=== PATIENT | female | born 1950 | race Caucasian/White ===

== ENCOUNTER 2019-07-16 00:40 | Day surgery (SDC) | payer MEDICARE, SELFPAY ==
[2019-07-14 14:02] VITALS: BMI 24.1
[2019-07-16 06:50] VITALS: BP 137/83; PULSE 77; RESP 16; TEMP 36.3; O2SAT 98; BMI 25.2
--- NOTE | 2019-07-16 06:58 | WPDANESEPPF ---
Anes - Initial Pre Proc Eval Procedure: Operation Date: 07/16/19 08:00 Proposed Procedures p Screening Colonoscopy - Bret Leavitt MD Date/Time: 07/16/19 06:58 Surgeon: Bret Leavitt MD Pre Op Diagnosis: Neoplasm Screening Patient Data Age: 69 Gender: F Height: 5 ft 2 in Weight: 62.7 kg Last Vital Signs Temp 36.3 C L 07/16/19 06:50 Pulse 77 07/16/19 06:50 Resp 16 07/16/19 06:50 BP 137/83 07/16/19 06:50 Pulse Ox 98 07/16/19 06:50 Allergies Allergy/AdvReac Type Severity Reaction Status Date / Time No Known Allergies Allergy Verified 07/16/19 06:48 Home Medications Medication Instructions Recorded Confirmed Type atorvastatin 10 mg tablet 10 mg PO DAILY #90 tablet 06/25/19 07/14/19 Rx celecoxib 200 mg PO DAILY PRN 07/14/19 07/14/19 History ergocalciferol (vitamin D2) 2,000 mcg PO DAILY 07/14/19 07/14/19 History [Vitamin D2] levothyroxine 25 mcg PO QAM 07/14/19 07/14/19 History multivitamin [Multiple Vitamins] 1 tablet PO DAILY 07/14/19 07/14/19 History turmeric 400 mg PO DAILY 07/14/19 07/14/19 History vitamin B complex 1 tablet PO DAILY 07/14/19 07/14/19 History Patient hx anesthesia problems: none Family hx anesthesia problems: none PMFSH Past Medical History Medical History (Updated 07/16/19 @ 06:58 by Cyrus Huston MD) Hyperlipidemia Hypothyroidism Family History Family History Sibling Hypertension Social History Social History Smoking status: Former smoker Smoking end date: 05/20/83 Anes - Eval Final PreProcedure Day of Procedure 07/16/19 06:58 Patient weight: normal Heart: regular rate and rhythm Lungs: clear to auscultation Airway: Mallampati scale class II Neurological: alert and oriented Last oral intake: >/= 8 hours ASA classification: II Emergent: no Anesthetic plan: proceed Anesthesia type and monitoring: general and standard monitoring Informed Consent: The patient's anesthetic plan and its attendant risks and benefits were discussed with the patient/family/POA. Questions were solicited and answers provided to the satisfaction of the patient/family/POA.
--- NOTE | 2019-07-16 07:05 | PM.HPGS ---
History of Present Illness History of Present Illness Consent: Risks, benefits, and alternatives have been discussed and questions answered. Patient agrees to proceed with procedure. Chief complaint: Neoplasm Screening Narrative: Dejah Augustine is a 69 year old W female referred for screening colonoscopy. patient's last colonoscopy was 10 years ago. Patient is asymptomatic and there is no family history of colon cancer PMFSH Past Medical History Medical History (Updated 07/16/19 @ 07:08 by Bret Leavitt MD) Bilateral cataracts Hyperlipidemia Hypothyroidism Presence of tooth-root and mandibular implants Surgical History Surgical History (Updated 07/16/19 @ 07:08 by Bret Leavitt MD) History of bladder suspension procedure Status post carpal tunnel release Family History Family History Sibling Hypertension Social History Social History Smoking status: Former smoker Smoking end date: 05/20/83 Meds Home Medications and Allergies Home Medications Medication Instructions Recorded Confirmed Type atorvastatin 10 mg tablet 10 mg PO DAILY #90 tablet 06/25/19 07/14/19 Rx celecoxib 200 mg PO DAILY PRN 07/14/19 07/14/19 History ergocalciferol (vitamin D2) 2,000 mcg PO DAILY 07/14/19 07/14/19 History [Vitamin D2] levothyroxine 25 mcg PO QAM 07/14/19 07/14/19 History multivitamin [Multiple Vitamins] 1 tablet PO DAILY 07/14/19 07/14/19 History turmeric 400 mg PO DAILY 07/14/19 07/14/19 History vitamin B complex 1 tablet PO DAILY 07/14/19 07/14/19 History Allergies Allergy/AdvReac Type Severity Reaction Status Date / Time No Known Allergies Allergy Verified 07/16/19 06:48 Vital Signs Vital Signs - 24 hr 07/16/19 06:50 Temperature 36.3 C L Pulse Rate 77 Respiratory Rate 16 Blood Pressure 137/83 Pulse Oximetry 98 Exam Const: Orientation/consciousness: patient oriented x3 Resp: Auscultation: clear to auscultation bilaterally Cardio: Rate: regular rate Rhythm: regular rhythm Heart sounds: no murmurs GI: GI Palp: Yes Soft to palpation, No Tenderness to palpation present (GI), Yes No hepatosplenomegaly present and No Palpable mass present Auscultation: normal bowel sounds Neuro: General: patient oriented x3 and no focal motor deficits Extrem: General: no pedal edema Assessment and Plan Additional Plan screening colonoscopy in average risk pt.
[2019-07-16] MEDS: LACTATED RINGERS 1,000 ML 150 ML IV CONT (07:16)
[2019-07-16 08:53] VITALS: BP 105/65; PULSE 71; RESP 19; O2SAT 97
[2019-07-16 09:03] VITALS: BP 108/65; PULSE 65; RESP 19; O2SAT 97
[2019-07-16 09:13] VITALS: BP 127/81; PULSE 61; RESP 16; O2SAT 97
== END 2019-07-16 09:30 | disposition home or self-care (01) ==
PROVIDERS: PCP Internal Medicine; Visit Provider Internal Medicine Gastroenterology
PROC: 0DJD8ZZ Inspection of Lower Intestinal Tract, Via Natural or Artificial Opening Endoscopic (ICD-10-PCS; CPT 45378; principal; 2019-07-16 08:00)
DX: Z12.11 Encounter for screening for malignant neoplasm of colon (principal); K57.30 Diverticulosis of large intestine without perforation or abscess without bleeding; K64.8 Other hemorrhoids; E78.5 Hyperlipidemia, unspecified; E03.9 Hypothyroidism, unspecified; Z87.891 Personal history of nicotine dependence
CPT/HCPCS: G0121; J2001; J2704; J7120

== ENCOUNTER 2019-10-14 13:03 | Outpatient (CLI) | payer MEDICARE, SELFPAY ==
--- NOTE | ~2019-10-14 | XR_ITS ---
EXAMINATION: XR chest 2V 10/14/2019 13:29 INDICATION: Cough PROCEDURE: 2 view chest COMPARISON: 04/28/2015 FINDINGS: The lungs are clear. The cardiomediastinal silhouette is within normal limits. There are no pleural effusions. There is no pneumothorax suspected. IMPRESSION: 1: NO ACUTE CARDIOPULMONARY DISEASE. Reviewed, dictated and finalized at location A.
== END 2019-10-14 13:04 | disposition home or self-care (01) ==
PROVIDERS: PCP Internal Medicine; Visit Provider Clinical Nurse Specialist
DX: R05 Cough (principal)
CPT/HCPCS: 71046

== ENCOUNTER → 2020-01-07 13:00 | Outpatient (CLI) | payer MEDICARE, SELFPAY ==
--- NOTE | ~2020-01-07 | MM_ITS ---
EXAMINATION: MM screening ricky BI w won HISTORY: Screening mammogram TECHNIQUE: Craniocaudal and mediolateral oblique 3-D tomosynthesis images were obtained and synthetic 2-D images were generated. CAD analysis was submitted and interpreted. COMPARISON: 08/30/2017, 08/06/2016 bilateral digital screening mammogram examinations BREAST PARENCHYMAL COMPOSITION: There are scattered areas of fibroglandular density. FINDINGS: Scattered bilateral benign calcifications. There is no evidence of suspicious mass, calcifi cation, or architectural distortion to suggest malignancy in either breast. There has been no suspici ous interval change. IMPRESSION: 1. No mammographic evidence of malignancy. 2. Recommend routine screening mammography in one year. BI-RADS Category 2: Benign finding(s). Reviewed, dictated and finalized at location A.
== END ==
PROVIDERS: PCP Internal Medicine; Visit Provider Internal Medicine
DX: Z12.31 Encounter for screening mammogram for malignant neoplasm of breast (principal)
CPT/HCPCS: 77063; 77067

== ENCOUNTER → 2020-04-07 10:20 | Outpatient (CLI) | payer MEDICARE, SELFPAY ==
--- NOTE | ~2020-04-07 | US_ITS ---
EXAMINATION: US soft tissue lower back DATE: 04/07/2020 10:38 INDICATION: Left upper back mass. TECHNIQUE: Multiple grayscale and Doppler ultrasound images of the right lower back were obtained. COMPARISON: None FINDINGS: There is a 1.3 x 1.0 x 0.6 cm hyperechoic subcutaneous mass in the patient's area of concer n in the right lower back. IMPRESSION: 1. 1.3 cm hyperechoic subcutaneous mass in the patient's area of concern in the right lower back. The differential diagnosis is headed by benign masses such as lipoma, hemangioma, and peripheral nerve s joe tumor. Malignancy cannot be excluded. Reviewed, dictated and finalized at location A. [employer] IMPRESSION: 1. 1.3 cm hyperechoic subcutaneous mass in the patient's area of concern in the right lower back. The differential diagnosis is headed by benign masses such a s lipoma, hemangioma, and peripheral nerve sheath tumor. Malignancy cannot be e xcluded.
--- NOTE | ~2020-04-07 | US_ITS ---
EXAMINATION: US soft tissue upper back DATE: 04/07/2020 10:38 INDICATION: Left upper back mass. TECHNIQUE: Multiple grayscale and Doppler ultrasound images of the left upper back were obtained. COMPARISON: None FINDINGS: There is a 1.7 x 0.4 x 1.7 cm subcutaneous mass that is isoechoic to subcutaneous fat in th e patient's area of concern in the left upper back. IMPRESSION: 1. 1.7 cm subcutaneous mass in the left upper back in the patient's area of concern, most likely a li octavio. Reviewed, dictated and finalized at location A. [employer]ELOPER IMPRESSION: 1. 1.7 cm subcutaneous mass in the left upper back in the patient's area of con cern, most likely a lipoma.
== END ==
PROVIDERS: PCP Internal Medicine; Visit Provider Nurse Practitioner
DX: R22.9 Localized swelling, mass and lump, unspecified (principal)
CPT/HCPCS: 76604; 76705

== ENCOUNTER → 2020-07-04 01:27 | Outpatient (CLI) | payer MEDICARE, SELFPAY ==
[2020-07-04 19:35] LABS: SARS-CoV-2 RNA PCR Negative
== END ==
PROVIDERS: PCP Internal Medicine; Visit Provider Surgery
DX: Z01.812 Encounter for preprocedural laboratory examination (principal); Z20.822 Contact with and (suspected) exposure to COVID-19
CPT/HCPCS: C9803; U0003; U0005

== ENCOUNTER 2020-07-07 00:58 | Day surgery (SDC) | payer MEDICARE, SELFPAY ==
[2020-07-04 10:49] VITALS: BMI 22.7
--- NOTE | 2020-07-07 10:00 | ECG_ITS ---
Measurements Intervals [place] Rate: 64 P: 71 OR: 145 QRS: 31 QRSD: 88 T: 74 QT: 384 QTc: 399 Interpretive Statements SINUS RHYTHM BASELINE ARTIFACT- I, III, AVL, AVF, V2-V3, V6 NORMAL ECG Electronically Signed On 07-07-2020 11:33:46 MET[employer] BUFFER by Checo Marquez D.O.
[2020-07-07 11:12] VITALS: BP 123/70; PULSE 69; RESP 18; TEMP 36; O2SAT 99
[2020-07-07] MEDS: LACTATED RINGERS 1,000 ML 30 ML IV CONT (11:30)
--- NOTE | 2020-07-07 11:43 | P.PNAN_ITS ---
Anes - Initial Pre Proc Eval Procedure: Operation Date: 07/07/20 13:00 Proposed Procedures p Excision Left Shoulder Mass - Leticia Mora MD Date/Time: 07/07/20 11:43 Surgeon: Leticia Mora MD Pre Op Diagnosis: Left Shoulder Mass Patient Data Age: 70 Gender: F Height: 5 ft 1 in Weight: 59 kg Last Vital Signs Temp 96.8 F L 07/07/20 11:12 Pulse 69 07/07/20 11:12 Resp 18 07/07/20 11:12 BP 123/70 07/07/20 11:12 Pulse Ox 99 07/07/20 11:12 Allergies Allergy/AdvReac Type Severity Reaction Status Date / Time No Known Allergies Allergy Verified 07/07/20 11:34 Home Medications Medication Instructions Recorded Confirmed Type celecoxib 200 mg PO DAILY PRN 07/14/19 07/07/20 History multivitamin [Multiple Vitamins] 1 tablet PO DAILY 07/14/19 07/07/20 History turmeric 400 mg PO DAILY 07/14/19 07/07/20 History vitamin B complex 1 tablet PO DAILY 07/14/19 07/07/20 History Vitamin D3 4,000 unit PO DAILY 07/16/19 07/07/20 History loratadine 10 mg tablet 10 mg PO DAILY PRN 09/15/19 07/07/20 History vitamin E 200 unit capsule 200 unit PO DAILY 09/15/19 07/07/20 History cyclosporine 0.05 % eye drops in a 1 drp OPHTHALMIC (EYE) Q12H 03/31/20 07/07/20 History dropperette atorvastatin 10 mg tablet 10 mg PO DAILY #90 tablet 06/16/20 07/07/20 Rx levothyroxine 25 mcg tablet 25 mcg PO QAM #90 tablet 06/16/20 07/07/20 Rx Patient hx anesthesia problems: none Family hx anesthesia problems: none PMFSH Past Medical History Medical History (Updated 04/19/20 @ 14:42 by Marie Stephens) Bilateral cataracts Hyperlipidemia Hypertension Hypothyroidism Lipoma Osteoarthritis Presence of tooth-root and mandibular implants Vitamin D deficiency Surgical History Surgical History History of bladder suspension procedure Status post carpal tunnel release Family History Family History Sibling Hypertension Diabetes mellitus Father Bone cancer Mother Liver cancer Social History Social History (Updated 04/19/20 @ 14:11 by Nina Mooney CMA) Smoking packs per day: 2 Smoking cigarettes per day: 40.0 Years smoked: 17 Smoking pack-years: 34.00 Smoking status: Never smoker Tobacco type: cigarettes Smoking end date: 05/20/83 Additional smoking assessment comments: QUIT 1983 Alcohol intake: never Substance use: never Substance use type: does not use Living arrangements: with family Spiritual care concerns: No Anes - Eval Final PreProcedure Day of Procedure 07/07/20 11:43 Patient weight: normal Heart: regular rate and rhythm Lungs: clear to auscultation Airway: Mallampati scale class II Neurological: alert and oriented Last oral intake: >/= 8 hours ASA classification: III Emergent: no Anesthetic plan: proceed Anesthesia type and monitoring: general GIVS and standard monitoring Informed Consent: The patient's anesthetic plan and its attendant risks and benefits were discussed with the patient/family/POA. Questions were solicited and answers provided to the satisfaction of the patient/family/POA.
--- NOTE | 2020-07-07 12:02 | PM.IMHP ---
H&P: HPI History of Present Illness Date/Time: 07/07/20 12:02 Chief Complaint: mass x 2 Narrative: Dejah Augustine is a 70 year old female presenting for evaluation of L upper back mass and R lat chest wall mass. A few months ago she noticed a mass of the mid upper back. She denies pain but has noticed a slight increase in size since she first noticed it. She denies surrounding redness, drainage or other s/s of infection. She was by her PCP on 04/07/2020 for an ultrasound of the area which showed 1.7 cm subcutaneous mass in the left upper back in the patient's area of concern, most likely a lipoma. The R lat chest wall mass is larger in size and has also been found in the same time interval. Pt reports mild tenderness to pressure/palpation in both areas. Review of Systems Review of Systems: All systems reviewed & are unremarkable except as noted in HPI and below PMFSH Past Medical History Medical History Bilateral cataracts Hyperlipidemia Hypertension Hypothyroidism Lipoma Osteoarthritis Presence of tooth-root and mandibular implants Vitamin D deficiency Surgical History Surgical History History of bladder suspension procedure Status post carpal tunnel release Family History Family History Sibling Hypertension Diabetes mellitus Father Bone cancer Mother Liver cancer Social History Social History Smoking packs per day: 2 Smoking cigarettes per day: 40.0 Years smoked: 17 Smoking pack-years: 34.00 Smoking status: Never smoker Tobacco type: cigarettes Smoking end date: 05/20/83 Additional smoking assessment comments: QUIT 1984 Alcohol intake: never Substance use: never Substance use type: does not use Living arrangements: with family Spiritual care concerns: No Meds Home Medications and Allergies Home Medications Medication Instructions Recorded Confirmed Type celecoxib 200 mg PO DAILY PRN 07/14/19 07/07/20 History multivitamin [Multiple Vitamins] 1 tablet PO DAILY 07/14/19 07/07/20 History turmeric 400 mg PO DAILY 07/14/19 07/07/20 History vitamin B complex 1 tablet PO DAILY 07/14/19 07/07/20 History Vitamin D3 4,000 unit PO DAILY 07/16/19 07/07/20 History loratadine 10 mg tablet 10 mg PO DAILY PRN 09/15/19 07/07/20 History vitamin E 200 unit capsule 200 unit PO DAILY 09/15/19 07/07/20 History cyclosporine 0.05 % eye drops in a 1 drp OPHTHALMIC (EYE) Q12H 03/31/20 07/07/20 History dropperette atorvastatin 10 mg tablet 10 mg PO DAILY #90 tablet 06/16/20 07/07/20 Rx levothyroxine 25 mcg tablet 25 mcg PO QAM #90 tablet 06/16/20 07/07/20 Rx Allergies Allergy/AdvReac Type Severity Reaction Status Date / Time No Known Allergies Allergy Verified 07/07/20 11:34 Vital Signs Vital Signs - 24 hr 07/07/20 11:12 Temperature 36.0 C L Pulse Rate 69 Respiratory Rate 18 Blood Pressure 123/70 Pulse Oximetry 99 Exam Const: General: cooperative, comfortable and no acute distress Orientation/consciousness: patient oriented x3 Limitations: no limitations Chest: Chest palpation & inspection: normal inspection of the chest Other: R lat chest wall mass - well circumscribed measuring approx 10x8 cm, mild TTP, no s/s infection, c/w lipoma Resp: Effort & Inspection: normal respiratory effort Auscultation: clear to auscultation bilaterally Cardio: Jugular venous distension: no JVD Rate: regular rate Rhythm: regular rhythm GI: Inspection: normal to inspection and non-distended GI Palp: Yes Soft to palpation and No Tenderness to palpation present (GI) Back/Spine/Pelvis: Other: L upper mid back mass measuring approx 2 cm, mild TTP, no s/s infection Assessment and Plan Assessment and plan (1) Mass: Status: Acute Assessment and Plan: L upper
--- NOTE | 2020-07-07 12:07 | WPDHPUPDATE1 ---
History and Physical Update Update Date/Time: 07/07/20 12:07 History and Physical has been reviewed, including an updated exam of the patient. There are NO changes in the patient's condition. Risks, benefits, and alternatives have been discussed and questions answered. Patient agrees to proceed with procedure.
[2020-07-07] MEDS: ceFAZolin 2 GM/D5W 50 ML 2 GM/50 ML BAG IVPB (12:34)
[2020-07-07 13:05] VITALS: BP 103/59; PULSE 54; RESP 18; O2SAT 94
--- NOTE | 2020-07-07 13:25 | PM.PROC ---
Procedure Note - Detailed Date of procedure: 07/07/20 Pre-op diagnosis: Left Shoulder Mass Left posterior shoulder mass measuring 2x1 cm, Right lateral chest wall mass measuring 12x7 cm Post-op diagnosis: same Procedure performed: Excisional biopsy left posterior shoulder mass in right lateral chest wall Description of procedure: The patient was taken the operating room placed in the lateral position. After adequate induction of mac anesthesia the patient was prepped and draped in the normal sterile fashion. A time-out was then done to verify the patient's identity, as well as procedure being performed. I began by localizing both these areas. Once done, I began by making an incision over the mass in the left posterior shoulder. This was noted to be through the dermis and located in the subcutaneous tissue. Although the posterior aspect of the mass was on the muscle did not extend into the muscle. I was able to excise this mass in full. The mass was most consistent with lipoma and measured approximately 2 x 1 cm. I then closed the subcutaneous tissue with 3 Vicryl suture and the skin was closed with 4 O Monocryl subcuticular suture. Dermabond was placed on this wound. I then made an incision over the mass in the right lateral chest. Again this was carried down through the dermis into the subcutaneous tissue. A large subcutaneous mass was noted. I was able to excise the mass in full and again was located entirely in the subcutaneous tissue. Once excised, the mass measured approximately 12 x 7 cm. I then gained hemostasis with the Bovie cautery. The subcutaneous tissue was again closed with 3 0 Vicryl suture. Skin was closed with 4 O Monocryl subcuticular suture. Dermabond was again placed on this wound. The patient tolerated these procedures well and was alert and awake in the operating room postoperatively. She was sent to the recovery room in stable condition. Anesthesia: MAC and local Surgeon: Leticia Mora MD Estimated blood loss (mL): 10 Drains: No Packing: No Pathology: yes Complications: No immediate complications Condition: stable Disposition: PACU Findings: Left posterior shoulder mass measuring 2 x 1 cm, right lateral chest wall mass measuring 12 x 7 cm
[2020-07-07 13:35] VITALS: BP 108/64; PULSE 47; O2SAT 97
[2020-07-07 14:05] VITALS: BP 138/69; PULSE 46
[2020-07-07 14:35] VITALS: BP 125/65; PULSE 49
== END 2020-07-07 15:03 | disposition home or self-care (01) ==
PROVIDERS: PCP Internal Medicine; Visit Provider Surgery
PROC: (CPT 21552; principal; 2020-07-07 13:00)
DX: D17.22 Benign lipomatous neoplasm of skin and subcutaneous tissue of left arm (principal); D17.1 Benign lipomatous neoplasm of skin and subcutaneous tissue of trunk; I10 Essential (primary) hypertension; E78.5 Hyperlipidemia, unspecified; E03.9 Hypothyroidism, unspecified; E55.9 Vitamin D deficiency, unspecified; H26.9 Unspecified cataract; Z87.891 Personal history of nicotine dependence
CPT/HCPCS: 21552; 24071; 88304; 93005; C9803; J0690; J1100; J2405; J2704; J3010; J7120; U0003; U0005

== ENCOUNTER 2020-10-27 10:22 | Outpatient (CLI) | payer MEDICARE, SELFPAY ==
[2020-10-27 10:42] LABS: Basophils Percent Auto 0.6 % (0.2-1.2); Eosinophils Absolute Auto 0.1 K/mm3 (0-0.3); Eosinophils Percent Auto 1.4 % (0-4.4); Hematocrit 45.5 % (37.0-47.0); Hemoglobin 14.6 g/dL (12.0-15.0); Immature Granulocyte Absolute 0.01 K/mm3 (0.00-0.031); Immature Granulocyte Percent A 0.2 % (0-0.5); Lymphocytes Absolute Auto 2.17 K/mm3 (0.9-3.2); Lymphocytes Percent Auto 32.8 % (18.3-44.2); Mean Corpuscular HGB Conc 32.1 g/dl (32-36); Mean Corpuscular Hemoglobin 27.5 pg (26-34); Mean Corpuscular Volume 85.7 fl (80-100); Monocytes Absolute Auto 0.7 K/mm3 (0.1-0.6); Monocytes Percent Auto 9.8 % (2.6-8.5); Neutrophils Absolute Auto 3.7 K/mm3 (1.3-6.7); Neutrophils Percent Auto 55.2 % (45.5-73.1); Platelet Count Result 263 k/mm3 (150-375); Red Blood Count 5.31 M/mm3 (4.2-5.4); Red Cell Distribution Width 13.3 % (11.5-14.5); White Blood Count 6.6 K/mm3 (4.5-10.0)
[2020-10-27 10:55] LABS: Alanine Aminotransferase 19 U/L (4-35); Albumin Level 4.4 g/dL (3.5-5.1); Alkaline Phosphatase 73 U/L (38-126); Anion Gap 11 mmol/L (8-16); Aspartate Amino Transferase 28 U/L (14-36); Bilirubin,Total 0.4 mg/dL (0.2-1.3); Blood Urea Nitrogen 13 mg/dL (7-17); Calcium 9.7 mg/dL (8.4-10.2); Carbon Dioxide 24 mmol/L (22-30); Chloride 108 mmol/L (98-107); Cholesterol 203 mg/dL (0-200); Estimated Glomerular Filt Rate > 60; Glucose 98 mg/dL (65-105); HDL Direct 62 mg/dL; Sodium 143 mmol/L (137-145); Triglycerides 150 mg/dL (<150)
[2020-10-27 11:07] LABS: LDL Cholesterol Direct 96 mg/dL
[2020-10-27 11:21] LABS: Free T4 Free Thyroxine 1.05 ng/mL (0.78-2.19)
[2020-10-30 05:09] LABS: Triiodothyronine T3 Free 3.1 pg/mL (2.3-4.2)
== END 2020-10-27 10:23 | disposition home or self-care (01) ==
PROVIDERS: PCP Internal Medicine; Visit Provider Nurse Practitioner
DX: E78.5 Hyperlipidemia, unspecified (principal); I10 Essential (primary) hypertension; E03.9 Hypothyroidism, unspecified; Z13.220 Encounter for screening for lipoid disorders
CPT/HCPCS: 36415; 80053; 80061; 84439; 84443; 84481; 85025

== ENCOUNTER → 2021-01-25 13:23 | Outpatient (CLI) | payer MEDICARE, SELFPAY ==
--- NOTE | ~2021-01-25 | MM_ITS ---
EXAMINATION: MM screening ricky BI w won HISTORY: Screening mammogram TECHNIQUE: Craniocaudal and mediolateral oblique 3-D tomosynthesis images were obtained and synthetic 2-D images were generated. CAD analysis was submitted and interpreted. COMPARISON: No prior mammogram is available for comparison at this institution. BREAST PARENCHYMAL COMPOSITION: The breasts are heterogeneously dense, which may obscure small masses . FINDINGS: Scattered bilateral benign calcifications are again noted. There is no evidence of suspicio us mass, calcification, or architectural distortion to suggest malignancy in either breast. There has been no suspicious interval change. IMPRESSION: 1. No mammographic evidence of malignancy. 2. Recommend routine screening mammography in one year. BI-RADS Category 2: Benign finding(s). Reviewed, dictated and finalized at location A.
== END ==
PROVIDERS: PCP Internal Medicine
DX: Z12.31 Encounter for screening mammogram for malignant neoplasm of breast (principal)
CPT/HCPCS: 77063; 77067

== ENCOUNTER 2021-09-23 08:54 | Emergency (ER) | payer MEDICARE, SELFPAY ==
--- NOTE | ~2021-09-23 | XR_ITS ---
EXAMINATION: XR chest 2V DATE: 09/23/2021 09:54 INDICATION: Right rib pain TECHNIQUE: PA and lateral views of the chest are obtained. COMPARISON: 10/14/2019 FINDINGS: The lungs are free of acute opacities. There is no pleural effusion or pneumothorax. The ca rdiomediastinal silhouette is normal. There is moderate thoracic spondylosis. IMPRESSION: 1. No acute cardiopulmonary abnormality. Reviewed, dictated and finalized at location A.
[2021-09-23 08:56] VITALS: BP 114/59; PULSE 73; RESP 18; TEMP 36.1; O2SAT 98
[2021-09-23] MEDS: KETOROLAC 30 MG/ML VIAL (*BKC) IV PUSH (09:43)
[2021-09-23 09:47] LABS: Basophils Absolute Auto 0.1 K/mm3 (0.0-0.1); Eosinophils Absolute Auto 0.2 K/mm3 (0-0.3); Eosinophils Percent Auto 2.6 % (0-4.4); Hematocrit 31.8 % (37.0-47.0); Hemoglobin 9.3 g/dL (12.0-15.0); Immature Granulocyte Absolute 0.02 K/mm3 (0.00-0.031); Immature Granulocyte Percent A 0.3 % (0-0.5); Lymphocytes Percent Auto 22.9 % (18.3-44.2); Mean Corpuscular HGB Conc 29.2 g/dl (32-36); Mean Corpuscular Hemoglobin 21.3 pg (26-34); Mean Corpuscular Volume 72.9 fl (80-100); Mean Platelet Volume 9.7 fl (7.4-10.4); Monocytes Absolute Auto 0.7 K/mm3 (0.1-0.6); Monocytes Percent Auto 10.6 % (2.6-8.5); Neutrophils Absolute Auto 4.4 K/mm3 (1.3-6.7); Neutrophils Percent Auto 62.6 % (45.5-73.1); Platelet Count Result 322 k/mm3 (150-375); Red Blood Count 4.36 M/mm3 (4.2-5.4); Red Cell Distribution Width 17.6 % (11.5-14.5)
--- NOTE | 2021-09-23 09:50 | ED.GENADULT ---
HPI - General Adult General Chief complaint: Back Pain/Injury <CARMEL Spivey Last Filed: 09/23/21 12:46> Stated complaint: back spasms <CARMEL Spivey Last Filed: 09/23/21 12:46> Time Seen by Provider: 09/23/21 09:07 <CARMEL Spivey Last Filed: 09/23/21 12:46> Source: patient <CARMEL Spivey Last Filed: 09/23/21 12:46> Mode of arrival: ambulatory <CARMEL Spivey Last Filed: 09/23/21 12:46> Limitations: no limitations <CARMEL Spivey Last Filed: 09/23/21 12:46> History of Present Illness HPI narrative: Patient is a 71-year-old female who presents the ED with report of right rib pain for the past 2 weeks. Patient reports the pain began in her right upper quadrant, just below her ribs after cleaning house 2 weeks ago. The pain seems to wrap around her right side to her right mid back. Denies any low back pain. She states the pain is worse with movement, bending over, and getting in and out of bed. She denies any shortness of breath, but does report occasionally has trouble taking a deep breath due to the pain. Denies any chest pain. No other abdominal pain, nausea, vomiting, urinary symptoms, diarrhea, constipation, fever, chills, cough, cold symptoms, dizziness, lightheadedness, BLE pain or edema. No history of kidney stones, blood clots, or cardiac etiology. Patient has a history of arthritis and occasionally takes celecoxib for this. She has been taking celecoxib more frequently over the last 2 weeks for her current rib pain. She did not take anything for pain today. She also saw a chiropractor on Saturday for her pain. <CARMEL Spivey Last Filed: 09/23/21 12:46> Related Data Home medications: Home Medications Medication Instructions Recorded Confirmed multivitamin [Multiple Vitamins] 1 tablet PO DAILY 07/14/19 11/17/20 turmeric 400 mg PO DAILY 07/14/19 11/17/20 vitamin B complex 1 tablet PO DAILY 07/14/19 11/17/20 Vitamin D3 4,000 unit PO DAILY 07/16/19 11/17/20 loratadine 10 mg tablet 10 mg PO DAILY PRN 09/15/19 11/17/20 vitamin E 200 unit capsule 200 unit PO DAILY 09/15/19 11/17/20 cyclosporine 0.05 % eye drops in a 1 drp OPHTHALMIC (EYE) Q12H 03/31/20 11/17/20 dropperette <Sima Escobar PA-C - Last Filed: 09/23/21 12:46> Allergies/adverse reactions: Allergies Allergy/AdvReac Type Severity Reaction Status Date / Time No Known Allergies Allergy Verified 09/23/21 09:07 <Sima Escobar PA-C - Last Filed: 09/23/21 12:46> Review of Systems Review of Systems: CONSTITUTIONAL: Denies fever, chills. ENT: Denies rhinorrhea, congestion, sore throat. CARDIOVASCULAR: Denies chest pain or BLE edema. RESPIRATORY: Reports occasional pain with taking deep breath. Denies cough or dyspnea. GASTROINTESTINAL: Denies abdominal pain, nausea, vomiting, or diarrhea. GENITOURINARY: Denies dysuria or hematuria. MUSCULOSKELETAL: Reports right rib pain radiating around to right mid back. Denies low back pain, BLE pain. NEUROLOGIC: Denies headache, dizziness, lightheadedness, numbness, or weakness. <Sima Escobar PA-C - Last Filed: 09/23/21 12:46> All systems reviewed & are unremarkable except as noted in HPI and below <Sima Escobar PA-C - Last Filed: 09/23/21 12:46> [facility] Past Medical History Medical History: Medical History Bilateral cataracts Hyperlipidemia Hypertension Hypothyroidism Lipoma Osteoarthritis Presence of tooth-root and mandibular implants Vitamin D deficiency <Sima Escobar PA-C - Last Filed: 09/23/21 12:46> Surgical History Surgical History: Surgical History H/O excision of mass 07/07/20 Left posterior shoulder mass measuring 2x1 cm, Right lateral chest wall mass measuring 12x7 cm History of bladder suspension procedure Status post carpal tunnel release <Sima Wagner
[2021-09-23 09:56] LABS: Alanine Aminotransferase 17 U/L (4-35); Albumin Level 3.9 g/dL (3.5-5.1); Alkaline Phosphatase 58 U/L (38-126); Anion Gap 6 mmol/L (8-16); Aspartate Amino Transferase 28 U/L (14-36); Bilirubin,Total 0.2 mg/dL (0.2-1.3); Blood Urea Nitrogen 13 mg/dL (7-17); Calcium 8.6 mg/dL (8.4-10.2); Carbon Dioxide 24 mmol/L (22-30); Chloride 111 mmol/L (98-107); Estimated CRCL calculation 48 ml/min; Estimated Glomerular Filt Rate > 60; Glucose 94 mg/dL (65-110); Lipase 99 U/L (23-300); Sodium 141 mmol/L (137-145)
[2021-09-23 10:03] LABS: D Dimer 0.45 ug/mL (<0.48)
[2021-09-23 10:07] LABS: Troponin I < 0.012 ng/mL (0.000-0.034)
[2021-09-23 10:19] LABS: Anisocytosis 1+ (NORMAL); Hypochromasia 1+ (NORMAL); Platelet Estimate Adequate (Adequate)
[2021-09-23 11:36] VITALS: BP 120/78; PULSE 75; RESP 18; O2SAT 100
== END 2021-09-23 11:37 | disposition home or self-care (01) ==
PROVIDERS: Physician Assistant; Emergency Provider Emergency Medicine; PCP Internal Medicine
DX: R07.81 Pleurodynia (principal); D64.9 Anemia, unspecified; E78.5 Hyperlipidemia, unspecified; I10 Essential (primary) hypertension; E03.9 Hypothyroidism, unspecified; M19.90 Unspecified osteoarthritis, unspecified site; E55.9 Vitamin D deficiency, unspecified; H26.9 Unspecified cataract; Z87.891 Personal history of nicotine dependence
CPT/HCPCS: 36415; 71046; 80053; 83690; 84484; 85025; 85380; 96374; 96375; 99284; J0131; J1885

== ENCOUNTER 2021-10-03 10:22 | Outpatient (CLI) | payer MEDICARE, SELFPAY ==
[2021-10-03 10:51] LABS: Basophils Absolute Auto 0.1 K/mm3 (0.0-0.1); Basophils Percent Auto 1.1 % (0.2-1.2); Eosinophils Absolute Auto 0.2 K/mm3 (0-0.3); Eosinophils Percent Auto 2.3 % (0-4.4); Hematocrit 34.6 % (37.0-47.0); Immature Granulocyte Absolute 0.03 K/mm3 (0.00-0.031); Immature Granulocyte Percent A 0.5 % (0-0.5); Lymphocytes Absolute Auto 1.99 K/mm3 (0.9-3.2); Lymphocytes Percent Auto 30.2 % (18.3-44.2); Mean Corpuscular HGB Conc 28.9 g/dl (32-36); Mean Corpuscular Hemoglobin 20.6 pg (26-34); Mean Corpuscular Volume 71.3 fl (80-100); Mean Platelet Volume 9.8 fl (7.4-10.4); Monocytes Absolute Auto 0.6 K/mm3 (0.1-0.6); Monocytes Percent Auto 9.1 % (2.6-8.5); Neutrophils Absolute Auto 3.7 K/mm3 (1.3-6.7); Neutrophils Percent Auto 56.8 % (45.5-73.1); Platelet Count Result 279 k/mm3 (150-375); Red Blood Count 4.85 M/mm3 (4.2-5.4); Red Cell Distribution Width 17.5 % (11.5-14.5); White Blood Count 6.6 K/mm3 (4.5-10.0)
[2021-10-03 11:11] LABS: Hypochromasia 1+ (NORMAL); Ovalocytes 1+ (NORMAL); Platelet Estimate Adequate (Adequate)
[2021-10-03 11:54] LABS: Iron 21 ug/dL (37-170)
[2021-10-03 12:04] LABS: Percent Iron Saturation 4 % (20-50)
[2021-10-03 12:13] LABS: Folic Acid > 20.0 ng/mL (2.76->20)
[2021-10-03 12:30] LABS: Ferritin 4.31 ng/mL (11.1-264)
== END 2021-10-03 10:23 | disposition home or self-care (01) ==
LOC: ANHLAB 10:24
PROVIDERS: PCP Internal Medicine; Visit Provider Nurse Practitioner
DX: D64.9 Anemia, unspecified (principal)
CPT/HCPCS: 36415; 82607; 82728; 82746; 83540; 83550; 85025

== ENCOUNTER 2021-11-15 09:41 | Outpatient (CLI) | payer MEDICARE, SELFPAY ==
[2021-11-15 10:14] LABS: Basophils Absolute Auto 0.1 K/mm3 (0.0-0.1); Basophils Percent Auto 0.9 % (0.2-1.2); Eosinophils Absolute Auto 0.1 K/mm3 (0-0.3); Hematocrit 46.3 % (37.0-47.0); Hemoglobin 14.4 g/dL (12.0-15.0); Immature Granulocyte Absolute 0.02 K/mm3 (0.00-0.031); Immature Granulocyte Percent A 0.3 % (0-0.5); Lymphocytes Absolute Auto 1.93 K/mm3 (0.9-3.2); Lymphocytes Percent Auto 29.4 % (18.3-44.2); Mean Corpuscular HGB Conc 31.1 g/dl (32-36); Mean Corpuscular Hemoglobin 24.4 pg (26-34); Mean Corpuscular Volume 78.6 fl (80-100); Mean Platelet Volume 9.7 fl (7.4-10.4); Monocytes Absolute Auto 0.7 K/mm3 (0.1-0.6); Monocytes Percent Auto 10.2 % (2.6-8.5); Neutrophils Absolute Auto 3.8 K/mm3 (1.3-6.7); Neutrophils Percent Auto 57.2 % (45.5-73.1); Platelet Count Result 287 k/mm3 (150-375); Red Blood Count 5.89 M/mm3 (4.2-5.4); White Blood Count 6.6 K/mm3 (4.5-10.0)
[2021-11-15 10:36] LABS: Cholesterol 205 mg/dL (0-200); HDL Direct 49 mg/dL; Triglycerides 164 mg/dL (<150)
[2021-11-15 10:47] LABS: LDL Cholesterol Direct 117 mg/dL
[2021-11-15 11:05] LABS: Anisocytosis 1+ (NORMAL); Ovalocytes 1+ (NORMAL); Platelet Estimate Adequate (Adequate)
[2021-11-15 12:13] LABS: Vitamin D 25 Hydroxy 54.6 ng/mL
== END 2021-11-15 09:42 | disposition home or self-care (01) ==
LOC: ANHLAB 09:45
PROVIDERS: PCP Internal Medicine; Visit Provider Nurse Practitioner
DX: E03.9 Hypothyroidism, unspecified (principal); I10 Essential (primary) hypertension; E78.5 Hyperlipidemia, unspecified; D50.9 Iron deficiency anemia, unspecified; E55.9 Vitamin D deficiency, unspecified
CPT/HCPCS: 36415; 80061; 82306; 82728; 84443; 85025

== ENCOUNTER 2022-01-29 15:03 | Outpatient (CLI) | payer MEDICARE, SELFPAY ==
--- NOTE | ~2022-01-29 | DEXA_ITS ---
Bone Density Report Name: MICAH SHI Age: 71 Sex: Female Ethnicity: White Date of : 1950 Indication: postmenopausal; screening for osteoporosis; Referring Provider: KRISTIAN KAISER Study: Bone densitometry was performed. Exam Date: January 29, 2022 Accession number: [id number] Bone Density: Region BMD T-score Z-score Classification AP Spine(L1-L4) 0.902 -1.3 0.9 Osteopenia Femoral Neck (Left) 0.726 -1.1 0.8 Osteopenia Total Hip (Left) 0.927 -0.1 1.5 Normal Femoral Neck (Right) 0.728 -1.1 0.8 Osteopenia Total Hip (Right) 0.896 -0.4 1.2 Normal Total Hip Mean 0.912 -0.3 1.4 Normal World Health Organization criteria for BMD impression classify patients as: Normal (T-score at or above -1.0), Osteopenia (T-score between -1.0 and -2.5), or Osteoporosis (T-score at or below -2.5). 10-year Fracture Risk(1): Major Osteoporotic Fracture 9.5% Hip Fracture 1.2% Reported Risk Factors: [place] (), Neck BMD=0.726, BMI=26.1 (1) FRAX(R) Version 3.08. Fracture probability calculated for an untreated patient. Fracture probability may be lower if the patient has received treatment. Clinical Information Provided by Patient: Has used the following medications: Vitamin D Has the following medical conditions: hypothyroid Patient maximum height was 61.5 Menopause Age: 55 Drinks caffeinated beverages Onset of menses at age 14 Number of children 1 Impression: The patient has low bone mass, based on the Total Spine T-score. The patient has an estimated ten-year risk of hip fracture of 1.2% and an estimated ten-year risk of major fracture of 9.5%, based on the WHO FRAX algorithm. Discussion: BONE DENSITY IS LOW AT ONE OR MORE SKELETAL SITES. This patient's lowest T-score is low at one or more skeletal sites. It meets the World Health Organization's (WHO) criteria for ?low bone mass? (T-score between -1.0 and -2.5). The patient's 10-year risk of fracture as calculated by FRAX is less than the threshold where pharmacological therapy is recommended by the National Osteoporosis Foundation (NOF). However, all treatment decisions require clinical judgment and consideration of individual patient factors, including patient preferences, comorbidities, previous drug use, risk factors not captured in the FRAX model (e.g., frailty, falls, vitamin D deficiency, increased bone turnover, interval significant decline in bone density) and possible under or overestimation of fracture risk by FRAX. The patient should follow a healthful lifestyle (good nutrition with adequate calcium and vitamin D, and appropriate weight-bearing exercise). Follow-Up: Consider repeating this study in 2 to 3 years to reassess this patient's status, or sooner if there is some new clinical indication. Reported by:
== END 2022-01-29 15:04 | disposition home or self-care (01) ==
PROVIDERS: PCP Internal Medicine; Visit Provider Nurse Practitioner
DX: Z78.0 Asymptomatic menopausal state (principal); M85.89 Other specified disorders of bone density and structure, multiple sites
CPT/HCPCS: 77080

== ENCOUNTER → 2022-03-05 14:45 | Outpatient (CLI) | payer MEDICARE, SELFPAY ==
--- NOTE | ~2022-03-05 | MM_ITS ---
EXAMINATION: MM screening ricky BI w won HISTORY: Screening TECHNIQUE: Craniocaudal and mediolateral oblique 3-D tomosynthesis images were obtained and synthetic 2-D images were generated. CAD analysis was submitted and interpreted. COMPARISON: Comparison to multiple prior studies sequentially, with oldest reviewed study dated 08/14. BREAST PARENCHYMAL COMPOSITION: The breasts are heterogeneously dense, which may obscure small masses FINDINGS: Stable bilateral benign-appearing calcifications. There is no evidence of suspicious mass, calcification, or architectural distortion to suggest malignancy in either breast. There has been no suspicious interval change. IMPRESSION: 1. No mammographic evidence of malignancy. 2. Recommend routine screening mammography in one year. BI-RADS Category 2: Benign finding(s). Reviewed, dictated and finalized at location A.
== END ==
PROVIDERS: PCP Internal Medicine
DX: Z12.31 Encounter for screening mammogram for malignant neoplasm of breast (principal)
CPT/HCPCS: 77063; 77067

== ENCOUNTER 2022-05-04 15:18 | Emergency (ER) | payer MEDICARE, SELFPAY ==
[2022-05-04 15:30] VITALS: BP 111/90; PULSE 92; RESP 16; TEMP 36.5; O2SAT 96
--- NOTE | 2022-05-04 15:40 | ED.URI ---
HPI - URI/Sore Throat General Chief Complaint: Upper Respiratory Infection Stated Complaint: runny nose, cough, headache Time Seen by Provider: 05/04/22 15:29 Source: patient, RN notes reviewed and old records reviewed Mode of arrival: ambulatory Limitations: no limitations History of Present Illness HPI Narrative: 72 year female presents to [facility] with complaints of runny nose, cough, scratchy throat, headache and low grade fever up to 100.8. Patiet reports that she has been exposed to influenza from 2 of her grandchildren recently. Patient states that she has taken Theraflu and Acetaminophen for her symptoms. . MD elicited complaint: fever, cough, sore throat, rhinorrhea and other (headache) Onset (ago): day(s) (Saturday day 3 of symptoms) Treatments prior to arrival: other (Theraflu and Tylenol) Related Data Home Medications Medication Instructions Recorded Confirmed turmeric 400 mg capsule 400 mg PO DAILY 07/14/19 05/04/22 cholecalciferol (vitamin D3) 100 4,000 unit PO DAILY 07/16/19 05/04/22 mcg (4,000 unit) capsule (Vitamin D3) cetirizine 10 mg tablet (Zyrtec) 10 mg PO DAILY PRN Allergic 01/01/22 05/04/22 Symptoms herbal drugs (Calmme tablet) 1 tablet PO DAILY 01/01/22 05/04/22 Allergies Allergy/AdvReac Type Severity Reaction Status Date / Time No Known Allergies Allergy Verified 05/04/22 15:41 Review of Systems Review of Systems: CONSTITUTIONAL: Reports malaise, chills, sweats, or fever. EYES: Denies visual changes, redness, or discharge. ENT: Reports rhinorrhea, congestion, sinus pain,no otalgia and sore throat. CARDIOVASCULAR: Denies chest pain, palpitations, or edema. RESPIRATORY: Reports cough.? Denies dyspnea. GASTROINTESTINAL: Denies abdominal pain, nausea, vomiting, diarrhea SKIN: Denies rash or itching. MUSCULOSKELETAL: Reports myalgia. NEUROLOGIC: Reports headache. All systems reviewed & are unremarkable except as noted in HPI and below PMFSH Past Medical History Medical History Bilateral cataracts Hyperlipidemia Hypertension Hypothyroidism Lipoma Osteoarthritis Presence of tooth-root and mandibular implants Vitamin D deficiency Surgical History Surgical History H/O excision of mass 07/07/20 Left posterior shoulder mass measuring 2x1 cm, Right lateral chest wall mass measuring 12x7 cm History of bladder suspension procedure Status post carpal tunnel release Family History Family History Sibling Hypertension Diabetes mellitus Father Bone cancer Mother Liver cancer Social History Social History Social History: caffeine-coffee 2-3 cups daily Smoking packs per day: 2 Smoking cigarettes per day: 40.0 Years smoked: 17 Smoking pack-years: 34.00 Smoking status: Former smoker (quit in 1983) Tobacco type: cigarettes Smoking end date: 05/20/83 Additional smoking assessment comments: QUIT 1983 Alcohol intake: never Substance use: never Substance use type: does not use Spiritual care concerns: No Comments At time of signature, agree with nursing past medical, surgical, social and family history. There is no relevant family history pertinent to the presenting complaint Exam Narrative: GENERAL: Well-appearing, well-nourished, and in no acute distress. HEAD: Normocephalic EYES: PERRLA, conjunctivae clear ENT: Nares clear, turbinates edematous and erythematous, clear discharge. Mucous membranes moist. TM pearly villegas with dull light reflex bilaterally; no tragal tenderness. Oropharynx erythematous without lesions. Tonsils not enlarged and without exudate, no drooling, no hoarseness, no trismus, uvula midline.post nasal drainage NECK: Supple. No lymphadenopathy CHEST: Clear to auscultation, breath sounds equ
== END 2022-05-04 16:11 | disposition home or self-care (01) ==
PROVIDERS: Emergency Provider Registered Nurse; PCP Internal Medicine
DX: J11.1 Influenza due to unidentified influenza virus with other respiratory manifestations (principal); I10 Essential (primary) hypertension; E03.9 Hypothyroidism, unspecified; E78.5 Hyperlipidemia, unspecified; Z87.891 Personal history of nicotine dependence
CPT/HCPCS: 87804; 99213; G0463

== ENCOUNTER 2022-05-14 11:27 | Emergency (ER) | payer MEDICARE, SELFPAY ==
[2022-05-14 12:41] VITALS: BP 119/78; PULSE 74; RESP 16; TEMP 37.1; O2SAT 98
--- NOTE | 2022-05-14 12:56 | ED.URI ---
HPI - URI/Sore Throat General Chief Complaint: Upper Respiratory Infection Stated Complaint: cough, sore throat, congestion, fatigue Time Seen by Provider: 05/14/22 13:32 Source: patient and RN notes reviewed Mode of arrival: ambulatory Limitations: no limitations History of Present Illness HPI Narrative: 72-year-old female presents with concern for cough, hoarse voice, chest congestion, fatigue, nasal congestion. Reports she was diagnosed with influenza on May 04, she had symptoms improved for about a day, then the symptoms returned with worsening cough, deep chest congestion, sinus congestion. She reports last night she lost her voice. MD elicited complaint: cough and nasal congestion Related Data Home Medications Medication Instructions Recorded Confirmed turmeric 400 mg capsule 400 mg PO DAILY 07/14/19 05/14/22 cholecalciferol (vitamin D3) 100 4,000 unit PO DAILY 07/16/19 05/14/22 mcg (4,000 unit) capsule (Vitamin D3) cetirizine 10 mg tablet (Zyrtec) 10 mg PO DAILY PRN Allergic 01/01/22 05/14/22 Symptoms herbal drugs (Calmme tablet) 1 tablet PO DAILY 01/01/22 05/14/22 codeine 10 mg-guaifenesin 100 mg/5 5 ml PO PRN PRN Cough 05/14/22 05/14/22 mL oral liquid Allergies Allergy/AdvReac Type Severity Reaction Status Date / Time No Known Allergies Allergy Verified 05/14/22 13:23 Review of Systems Review of Systems: CONSTITUTIONAL: Reports malaise, fatigue EYES: Denies visual changes, redness, or discharge. ENT: Reports rhinorrhea, congestion, sinus pain, hoarse voice CARDIOVASCULAR: Denies chest pain, palpitations, or edema. RESPIRATORY: Reports cough, chest congestion. Denies dyspnea. GASTROINTESTINAL: Denies abdominal pain, nausea, vomiting, diarrhea SKIN: Denies rash or itching. MUSCULOSKELETAL: Denies myalgia. NEUROLOGIC: Reports headache. All systems reviewed & are unremarkable except as noted in HPI and below PMFSH Past Medical History Medical History Bilateral cataracts Hyperlipidemia Hypertension Hypothyroidism Lipoma Osteoarthritis Presence of tooth-root and mandibular implants Vitamin D deficiency Surgical History Surgical History H/O excision of mass 07/07/20 Left posterior shoulder mass measuring 2x1 cm, Right lateral chest wall mass measuring 12x7 cm History of bladder suspension procedure Status post carpal tunnel release Family History Family History Sibling Hypertension Diabetes mellitus Father Bone cancer Mother Liver cancer Social History Social History Social History: caffeine-coffee 2-3 cups daily Smoking packs per day: 2 Smoking cigarettes per day: 40.0 Years smoked: 17 Smoking pack-years: 34.00 Smoking status: Former smoker (quit in 1983) Tobacco type: cigarettes Smoking end date: 05/20/83 Additional smoking assessment comments: QUIT 1983 Alcohol intake: never Substance use: never Substance use type: does not use Spiritual care concerns: No Comments At time of signature, agree with nursing past medical, surgical, social and family history. There is no relevant family history pertinent to the presenting complaint Exam Narrative: GENERAL: Nontoxic appearing And in no acute distress. HEAD: Normocephalic EYES: PERRLA, conjunctivae clear ENT: Nares clear, turbinates edematous and erythematous. Mucous membranes moist. TM pearly villegas with dull light reflex bilaterally; no tragal tenderness. Oropharynx not erythematous without lesions. Tonsils not enlarged and without exudate, no drooling, no trismus, uvula midline. Hoarse voice NECK: Supple. No lymphadenopathy CHEST: Clear to auscultation, breath sounds equal. No wheezing, rhonchi, rales, or stridor. No respiratory distress, speaks in full sentences. Cough not
== END 2022-05-14 13:50 | disposition home or self-care (01) ==
PROVIDERS: Emergency Provider Nurse Practitioner; PCP Internal Medicine
DX: J40 Bronchitis, not specified as acute or chronic (principal); J32.9 Chronic sinusitis, unspecified; E78.5 Hyperlipidemia, unspecified; I10 Essential (primary) hypertension; E03.9 Hypothyroidism, unspecified; Z87.891 Personal history of nicotine dependence
CPT/HCPCS: 99213; G0463

== ENCOUNTER 2022-09-07 10:40 | Outpatient (CLI) | payer MEDICARE, SELFPAY ==
--- NOTE | ~2022-09-07 | US_ITS ---
EXAMINATION: US soft tissue lower back DATE: 09/07/2022 11:20 INDICATION: Right posterior back lump TECHNIQUE: Multiple grayscale and Doppler ultrasound images of the region of concern at the paraspina l right posterior back were obtained. COMPARISON: None FINDINGS: 1.9 x 1.5 x 0.7 cm wider than tall ovoid region of increased echogenicity with ill-defined margins in the superficial subcutaneous fat at the region of concern. No evident internal vascular flow or surr ounding hyperemia on color Doppler. This appears similar though slightly larger than on prior study d ated 04/07/2020 at which time the lesion measured 1.3 x 1.0 x 0.6 cm. IMPRESSION: 1. Slight interval increase in size of a nonspecific 1.9 x 1.5 x 0.7 cm ill-defined hyperechoic subcu taneous mass at the region of concern. This statistically most likely to represent a lipoma although as previously noted differential would include other neoplasm such as hemangioma or peripheral nerve sheath tumor. Malignancy would be statistically highly unlikely particularly given the minimal interv al growth over greater than 2 years. Reviewed, dictated and finalized at location A. IMPRESSION: 1. Slight interval increase in size of a nonspecific 1.9 x 1.5 x 0.7 cm ill-def ined hyperechoic subcutaneous mass at the region of concern. This statistically most likely to represent a lipoma although as previously noted differential wo uld include other neoplasm such as hemangioma or peripheral nerve sheath tumor. Malignancy would be statistically highly unlikely particularly given the minim al interval growth over greater than 2 years.
== END 2022-09-07 10:41 | disposition home or self-care (01) ==
PROVIDERS: PCP Internal Medicine; Visit Provider Clinical Nurse Specialist
DX: R22.2 Localized swelling, mass and lump, trunk (principal)
CPT/HCPCS: 76705

== ENCOUNTER 2022-09-07 13:46 | Outpatient (NON) | payer MEDICARE, SELFPAY ==
[2022-09-07 18:33] LABS: Appearance Urine Clear (Clear); Bilirubin Urine Negative (Negative); Blood Urine 3+ (Negative); Color Urine Yellow (Yellow); Glucose Urine UA Negative (Negative); Ketones Urine Negative (Negative); Leukocyte Esterase Ur 3+ LEU/UL (Negative); Nitrate Urine Negative (Negative); Protein Urine Negative (Negative); Specific Grav Ur 1.015 (1.001-1.035); Urobilinogen Urine 0.2 mg/dL (<2.0)
[2022-09-07 18:58] LABS: Add Urine Microscopic? YES
[2022-09-07 19:00] LABS: Squamous Epithelial Cell Urine Rare /hpf (Few)
[2022-09-07 19:01] LABS: Bacteria Urine Rare /hpf
== END 2022-09-07 13:47 | disposition home or self-care (01) ==
LOC: ANHGOSHLAB 13:47
PROVIDERS: PCP Internal Medicine; Visit Provider Clinical Nurse Specialist
DX: N39.0 Urinary tract infection, site not specified (principal)
CPT/HCPCS: 76705; 81001; 87086

== ENCOUNTER 2022-09-17 13:56 | Outpatient (CLI) | payer MEDICARE, SELFPAY ==
[2022-09-17 17:30] LABS: Appearance Urine Clear (Clear); Bilirubin Urine Negative (Negative); Blood Urine Negative (Negative); Color Urine Yellow (Yellow); Glucose Urine UA Negative (Negative); Ketones Urine Negative (Negative); Leukocyte Esterase Ur Negative LEU/UL (Negative); Nitrate Urine Negative (Negative); Protein Urine Negative (Negative); Specific Grav Ur 1.006 (1.001-1.035); Urobilinogen Urine 0.2 mg/dL (<2.0)
[2022-09-17 17:45] LABS: Add Urine Microscopic? NO
== END 2022-09-17 13:57 | disposition home or self-care (01) ==
LOC: ANHGOSHLAB 13:58
PROVIDERS: PCP Internal Medicine; Visit Provider Clinical Nurse Specialist
DX: N39.0 Urinary tract infection, site not specified (principal)
CPT/HCPCS: 81003

== ENCOUNTER 2022-11-14 14:45 | Outpatient (CLI) | payer MEDICARE, SELFPAY ==
--- NOTE | 2022-12-03 18:42 | WPDHOMESLEEP ---
Sleep Study - Home Unattended Date of Study: 11/14/22 Ordering Provider: KODAK Oleary-Taylor Interpreting Provider: Marie Farrell, DO Home Sleep Study Type: Watch PAT Height: 1.55 m Weight: 58.967 kg Body Mass Index: 24.5 Neck Circumference (inches): 14 [place]: 5 Reason for Sleep Study Snoring, difficulty falling asleep Sleep History The patient is a 72-year-old female that had a sleep study ordered by her primary care for evaluation of sleep apnea. The patient denies awakening from sleep short of breath. She denies awakening at night with heartburn, belching or cough. She frequently snores and is occasionally loud enough that others complain. She denies waking up gasping for air throughout the night. She denies having breathing problems at night observed by herself or others. She denies sweating excessively at night. She denies having heart palpitations or irregular heartbeats during the night. He denies falling asleep during the day and while driving. She denies sleep paralysis, cataplexy and hypnagogic / hypnopompic hallucinations. She denies having trouble at school or work due to sleepiness. She denies feeling afraid of going to sleep. She occasionally has nightmares and frequently remembers her dreams. She frequently has thoughts racing through her mind. She denies feeling sad or depressed. She occasionally has anxiety. She frequently notices parts of her body jerk. She rarely has crawling and aching feelings in her legs and occasionally has leg pain during the night. She rarely grinds her teeth during sleep and rarely awakens with morning jaw pain. She is frequently bothered by pain during the day and frequently awakened by pain during the night. She constantly wakes up feeling stiff morning. She frequently wakes up with sore or achy muscles. She frequently wakes up with pain in the neck, spine and other joints. She goes to bed between 10 30-10 40 5:00 p.m. on both weekdays and weekends. It takes her 30 minutes up to 2 hours to fall asleep. She wakes up 2-3 times throughout the night to urinate and is able to fall back asleep immediately. She wakes up between 8-9 a.m. on both weekdays and weekends. She typically gets 8-9 hours of sleep per night. She will stay in bed for 10 minutes after waking up in the morning. She currently lives with her . She does not consume any caffeinated beverages within 2 hours of bedtime. She does not engage in physical exercise before bedtime. She will watch television before falling asleep. She denies taking naps in the afternoon or the evening. She consumes 2-3 cups of caffeinated beverage every morning. She quit smoking cigarettes 38 years ago. She has not consumed alcohol for the past 13 years. She denies recreational drug PMFSH Past Medical History Medical History Bilateral cataracts Hyperlipidemia Hypertension Hypothyroidism Lipoma Osteoarthritis Presence of tooth-root and mandibular implants Vitamin D deficiency Surgical History Surgical History H/O excision of mass 07/07/20 Left posterior shoulder mass measuring 2x1 cm, Right lateral chest wall mass measuring 12x7 cm History of bladder suspension procedure Status post carpal tunnel release Family History Family History Sibling Hypertension Diabetes mellitus Father Bone cancer Mother Liver cancer Social History Social History Social History: caffeine-coffee 2-3 cups daily Smoking packs per day: 2 Smoking cigarettes per day: 40.0 Years smoked: 17 Smoking pack-years: 34.00 Smoking status: Former smoker (quit in 1983) Tobacco type: cigarettes Smoking end date: 05/20/83 Additional smoking assessment comments: QUIT 1983 Alcohol intake: never
[2022-12-03 18:52] VITALS: BMI 24.5
== END 2022-11-15 10:41 | disposition home or self-care (01) ==
LOC: ANHCSM 14:45
PROVIDERS: PCP Internal Medicine; Visit Provider Clinical Nurse Specialist
DX: G47.33 Obstructive sleep apnea (adult) (pediatric) (principal); G47.10 Hypersomnia, unspecified
CPT/HCPCS: 95800

== ENCOUNTER 2022-11-21 10:56 | Outpatient (CLI) | payer MEDICARE, SELFPAY ==
[2022-11-21 18:45] LABS: Basophils Absolute Auto 0.1 K/mm3 (0.0-0.1); Eosinophils Absolute Auto 0.1 K/mm3 (0-0.3); Hematocrit 49.4 % (37.0-47.0); Hemoglobin 16.1 g/dL (12.0-15.0); Immature Granulocyte Absolute 0.01 K/mm3 (0.00-0.031); Immature Granulocyte Percent A 0.1 % (0-0.5); Lymphocytes Absolute Auto 2.18 K/mm3 (0.9-3.2); Lymphocytes Percent Auto 31.2 % (18.3-44.2); Mean Corpuscular HGB Conc 32.6 g/dl (32-36); Mean Corpuscular Hemoglobin 28.9 pg (26-34); Mean Corpuscular Volume 88.5 fl (80-100); Mean Platelet Volume 10.2 fl (7.4-10.4); Monocytes Absolute Auto 0.6 K/mm3 (0.1-0.6); Monocytes Percent Auto 8.6 % (2.6-8.5); Neutrophils Percent Auto 57.1 % (45.5-73.1); Platelet Count Result 256 k/mm3 (150-375); Red Blood Count 5.58 M/mm3 (4.2-5.4); Red Cell Distribution Width 12.8 % (11.5-14.5)
== END 2022-11-21 10:57 | disposition home or self-care (01) ==
LOC: ANHGOSHLAB 10:57
PROVIDERS: PCP Internal Medicine; Visit Provider Nurse Practitioner
DX: D50.9 Iron deficiency anemia, unspecified (principal)
CPT/HCPCS: 36415; 82728; 85025

== ENCOUNTER 2022-11-23 10:24 | Outpatient (CLI) | payer MEDICARE, SELFPAY ==
[2022-11-23 18:31] LABS: Alanine Aminotransferase 32 U/L (6-35); Albumin Level 4.2 g/dL (3.5-5.1); Alkaline Phosphatase 72 U/L (38-126); Anion Gap 5 mmol/L (8-16); Aspartate Amino Transferase 32 U/L (14-36); Bilirubin,Total 0.5 mg/dL (0.2-1.3); Blood Urea Nitrogen 12 mg/dL (7-17); Calcium 9.2 mg/dL (8.4-10.2); Carbon Dioxide 31 mmol/L (22-30); Chloride 101 mmol/L (98-107); Cholesterol 204 mg/dL (0-200); Estimated Glomerular Filt Rate > 60; Glucose 101 mg/dL (65-110); HDL Direct 44 mg/dL; Potassium 4.2 mmol/L (3.4-5.0); Sodium 137 mmol/L (137-145); Triglycerides 196 mg/dL (<150)
[2022-11-23 18:42] LABS: LDL Cholesterol Direct 119 mg/dL
[2022-11-23 19:06] LABS: Vitamin D 25 Hydroxy 60.4 ng/mL
== END 2022-11-23 10:25 | disposition home or self-care (01) ==
LOC: ANHGOSHLAB 10:25
PROVIDERS: PCP Internal Medicine; Visit Provider Nurse Practitioner
DX: E55.9 Vitamin D deficiency, unspecified (principal); D50.9 Iron deficiency anemia, unspecified; E03.9 Hypothyroidism, unspecified; E78.5 Hyperlipidemia, unspecified
CPT/HCPCS: 36415; 80053; 80061; 82306; 84443

== ENCOUNTER 2023-03-26 15:57 | Outpatient (CLI) | payer MEDICARE, SELFPAY ==
[2023-03-26 16:13] LABS: Basophils Absolute Auto 0.1 K/mm3 (0.0-0.1); Basophils Percent Auto 0.6 % (0.2-1.2); Eosinophils Absolute Auto 0.1 K/mm3 (0-0.3); Eosinophils Percent Auto 1.3 % (0-4.4); Hematocrit 45.7 % (37.0-47.0); Hemoglobin 15.4 g/dL (12.0-15.0); Immature Granulocyte Absolute 0.02 K/mm3 (0.00-0.031); Immature Granulocyte Percent A 0.2 % (0-0.5); Lymphocytes Percent Auto 22.7 % (18.3-44.2); Mean Corpuscular HGB Conc 33.7 g/dl (32-36); Mean Corpuscular Volume 88.9 fl (80-100); Mean Platelet Volume 9.7 fl (7.4-10.4); Monocytes Absolute Auto 0.9 K/mm3 (0.1-0.6); Monocytes Percent Auto 9.5 % (2.6-8.5); Neutrophils Absolute Auto 6.4 K/mm3 (1.3-6.7); Neutrophils Percent Auto 65.7 % (45.5-73.1); Platelet Count Result 260 k/mm3 (150-375); Red Blood Count 5.14 M/mm3 (4.2-5.4); Red Cell Distribution Width 12.9 % (11.5-14.5); White Blood Count 9.7 K/mm3 (4.5-10.0)
[2023-03-26 16:43] LABS: Iron 112 ug/dL (37-170)
[2023-03-26 16:45] LABS: Alanine Aminotransferase 24 U/L (6-35); Albumin Level 4.3 g/dL (3.5-5.1); Alkaline Phosphatase 74 U/L (38-126); Anion Gap 6 mmol/L (8-16); Aspartate Amino Transferase 37 U/L (14-36); Bilirubin,Total 0.5 mg/dL (0.2-1.3); Blood Urea Nitrogen 15 mg/dL (7-17); Calcium 9.4 mg/dL (8.4-10.2); Carbon Dioxide 27 mmol/L (22-30); Chloride 104 mmol/L (98-107); Estimated Glomerular Filt Rate > 60; Glucose 85 mg/dL (65-110); Potassium 3.7 mmol/L (3.4-5.0); Sodium 137 mmol/L (137-145)
[2023-03-26 16:52] LABS: Percent Iron Saturation 33 % (20-50)
[2023-03-29 09:53] LABS: Methylmalonic Acid 373 nmol/L (87-318)
[2023-03-30 17:20] LABS: Soluble Transferrin Receptor 1.43 mg/L (0.76-1.76)
== END 2023-03-26 15:58 | disposition home or self-care (01) ==
LOC: ANHLAB 15:59
PROVIDERS: PCP Internal Medicine; Visit Provider Internal Medicine Hematology & Oncology
DX: D50.8 Other iron deficiency anemias (principal)
CPT/HCPCS: 36415; 80053; 82607; 82728; 82746; 83540; 83550; 83921; 84238; 85025

== ENCOUNTER → 2023-05-17 11:45 | Outpatient (CLI) | payer MEDICARE, SELFPAY ==
--- NOTE | ~2023-05-17 | XR_ITS ---
EXAMINATION: XR thoracic spine 3V DATE: 05/17/2023 11:59 INDICATION: Thoracic back pain TECHNIQUE: AP, lateral and lateral swimmer's views of the thoracic spine were obtained. COMPARISON: None. FINDINGS: There are 16 degrees thoracic levoscoliosis. Bone alignment throughout. There is no fractur e. There is mild loss of intervertebral disc space height at multiple levels in the thoracic spine. S mall degenerative osteophytes project from the anterior endplates of multiple vertebral bodies. IMPRESSION: 1. Mild thoracic spondylosis without acute findings. Reviewed, dictated and finalized at location B. [facility] COOK
== END ==
PROVIDERS: PCP Internal Medicine; Visit Provider Clinical Nurse Specialist
DX: M54.6 Pain in thoracic spine (principal); M54.04 Panniculitis affecting regions of neck and back, thoracic region
CPT/HCPCS: 72072

== ENCOUNTER → 2023-05-18 08:24 | Outpatient (CLI) | payer MEDICARE, SELFPAY ==
--- NOTE | ~2023-05-18 | MM_ITS ---
EXAMINATION: MM screening ricky BI w won HISTORY: Screening mammogram, family history of breast cancer in her mother. TECHNIQUE: Craniocaudal and mediolateral oblique 3-D tomosynthesis images were obtained and synthetic 2-D images were generated. CAD analysis was submitted and interpreted. COMPARISON: 03/05/2022, 01/25/2021, 01/07/2020 BREAST PARENCHYMAL COMPOSITION:There are scattered areas of fibroglandular density. FINDINGS: Stable punctate scattered bilateral calcifications. No suspicious mass, calcification, or a rchitectural distortion are identified in either breast to suggest malignancy. There has been no susp icious interval change. IMPRESSION: No mammographic evidence of malignancy. Recommend routine screening mammography in one year. BI-RADS Category 2: Benign finding(s). Reviewed, dictated and finalized at [facility]. CHECKER
== END ==
PROVIDERS: PCP Internal Medicine; Visit Provider Internal Medicine
DX: Z12.31 Encounter for screening mammogram for malignant neoplasm of breast (principal)
CPT/HCPCS: 77063; 77067

== ENCOUNTER 2023-09-09 12:30 | Outpatient (RCR) | payer MEDICARE, SELFPAY ==
--- NOTE | 2023-08-07 10:27 | OTOPEVAL1 ---
Assessment and note entered by NEHAL Phillips/Jarred, CHT Evaluation Information 08/07/23 Diagnosis Left trigger thumb Onset Apr 2023 Subjective Information Patient began experiencing locking in April. She's received 2 injections. She continues to have a constant dull ache in the thumb. She continues to experiencing triggering, but not needing to use her other hand to pull her thumb straight. Reported Pain Level Pain Score 4/10 left thumb Assessment OT Clinical Summary Patient referred to OT with dx of left trigger thumb s/p injections. Today a thumb IP immobilization splint was fabricated to rest the flexor pollicis longus tendon. She demonstrates good MCP motion with the splint donned. Educated on passive ROM and use of heat/ice for pain. Continued follow up indicated for use of modalities, manual therapy, HEP instruction/ progression, and therapeutic exercise to facilitate reduced pain and inflammation and promote improved functional use. Plan of Care Interventions Therapeutic Exercise,Manual Therapy,Therapeutic Activities,Hot Pack/Cold Pack,Ultrasound,Paraffin OT Services Indicated Yes Treatment Frequency and 1x/week for 5 visits Duration These treatments will address the objective and functional deficits as defined above. The patient will be advanced safely and appropriately in order for the patient to progress towards his/her prior level of function. Additional exercises will be introduced and as well as a comprehensive home exercise program upon discharge, if needed, ?to ensure carryover of functional gains achieved in the clinic. This treatment plan has been reviewed and agreement upon by the patient.
--- NOTE | 2023-08-07 10:28 | OPREHPOC ---
Outpatient Therapy Plan of Care This is a Multidisciplinary Plan of Care that may contain components documented by all disciplines (PT, OT, and ST.) OT Problem 1 OT Problem #1 Knowledge Deficit OT Goal 1 Goal 1. Patient to be independent with instructed materials and splint wearing schedule. Target Visit 6 OT Problem 2 OT Problem #2 Pain OT Goal 1 Goal 1. Patient to report reduced left thumb pain to 0/ 10 at rest. Target Visit 6 OT Problem 3 OT Problem #3 Impaired Strength OT Goal 1 Goal 1. Patient to be able to complete left hand freezer operator/ pinch strengthening with ashton putty without triggering in the left thumb. Target Visit 6
--- NOTE | 2023-09-09 13:27 | OTOPPROG ---
Assessment and note entered by Jacob Duque, NEHAL/Jarred, CHT OT Progress Update 09/09/23 Diagnosis Left trigger thumb Onset Apr 2023 Subjective Information Patient began experiencing locking in April. She's received 2 injections. She continues to have a constant dull ache in the thumb. She was progressing with therapy, having no clicking or locking in the thumb with active ROM. Today she reports she had a busy weekend using her hands with gardening and sewing and she was having increased pain and locking of the thumb yesterday. She presents today with no locking. Assessment OT Clinical Summary Patient referred to OT with dx of left trigger thumb. She has participated in OT x6 weeks focusing on reducing pain and inflammation of the flexor tendon. She has made slow, steady progress with therapy. She continues to have intermittent episodes of catching with use. She has been compliant with all materials and splint wearing schedule. Continued follow up indicated for use of modalities, manual therapy, HEP instruction/ progression, and therapeutic exercise to facilitate reduced pain and inflammation and promote improved functional use. Plan of Care Interventions Therapeutic Exercise,Manual Therapy,Therapeutic Activities,Hot Pack/Cold Pack,Ultrasound,Paraffin OT Services Indicated Yes Treatment Frequency and 1x/week for 5 visits Duration These treatments will address the objective and functional deficits as defined above. The patient will be advanced safely and appropriately in order for the patient to progress towards his/her prior level of function. Additional exercises will be introduced and as well as a comprehensive home exercise program upon discharge, if needed, ?to ensure carryover of functional gains achieved in the clinic. This treatment plan has been reviewed and agreement upon by the patient.
--- NOTE | 2023-09-17 12:00 | OTOPDC ---
Assessment and note entered by Jacob Duque, OTR/L, MICHAELT OT D/C 09/17/23 OT Clinical Summary Patient called to report that she is proceeding with the trigger finger release surgery. Will be discharging from OT services at this time. Thank you for this referral.
== END 2023-09-17 12:59 | disposition home or self-care (01) ==
LOC: ANHOT 12:30
PROVIDERS: PCP Internal Medicine; Visit Provider Plastic Surgery
DX: M65.312 Trigger thumb, left thumb (principal)
CPT/HCPCS: 97018; 97035; 97110; 97165; L3933

== ENCOUNTER 2023-10-01 12:22 | Outpatient (CLI) | payer MEDICARE, SELFPAY ==
[2023-10-01 16:33] LABS: Iron 117 ug/dL (37-170)
[2023-10-01 16:39] LABS: Anion Gap 6 mmol/L (4-12); Blood Urea Nitrogen 14 mg/dL (7-17); Calcium 9.9 mg/dL (8.4-10.2); Carbon Dioxide 28 mmol/L (22-30); Chloride 107 mmol/L (98-107); Estimated Glomerular Filt Rate > 60; Glucose 108 mg/dL (65-110); Potassium 4.1 mmol/L (3.4-5.0); Sodium 141 mmol/L (137-145)
[2023-10-01 16:45] LABS: Percent Iron Saturation 32 % (20-50)
[2023-10-01 17:52] LABS: Folic Acid > 20.0 ng/mL (2.76->20); Vitamin B12 > 1000.0 pg/mL (239-931)
== END 2023-10-01 12:23 | disposition home or self-care (01) ==
LOC: ANHLAB 12:24
PROVIDERS: Nurse Practitioner Family; PCP Internal Medicine; Visit Provider Internal Medicine Hematology & Oncology
DX: D50.9 Iron deficiency anemia, unspecified (principal)
CPT/HCPCS: 36415; 80048; 82607; 82728; 82746; 83540; 83550

== ENCOUNTER 2023-10-08 13:14 | Outpatient (CLI) | payer MEDICARE, SELFPAY ==
[2023-10-08 13:29] LABS: Basophils Percent Auto 0.6 % (0.2-1.2); Eosinophils Absolute Auto 0.1 K/mm3 (0-0.3); Eosinophils Percent Auto 2.1 % (0-4.4); Hematocrit 44.6 % (37.0-47.0); Hemoglobin 14.9 g/dL (12.0-15.0); Immature Granulocyte Absolute 0.02 K/mm3 (0.00-0.031); Immature Granulocyte Percent A 0.3 % (0-0.5); Lymphocytes Absolute Auto 2.07 K/mm3 (0.9-3.2); Lymphocytes Percent Auto 31.1 % (18.3-44.2); Mean Corpuscular HGB Conc 33.4 g/dl (32-36); Mean Corpuscular Volume 89.7 fl (80-100); Mean Platelet Volume 9.6 fl (7.4-10.4); Monocytes Absolute Auto 0.7 K/mm3 (0.1-0.6); Monocytes Percent Auto 9.8 % (2.6-8.5); Neutrophils Absolute Auto 3.7 K/mm3 (1.3-6.7); Neutrophils Percent Auto 56.1 % (45.5-73.1); Platelet Count Result 270 k/mm3 (150-375); Red Blood Count 4.97 M/mm3 (4.2-5.4); White Blood Count 6.7 K/mm3 (4.5-10.0)
== END 2023-10-08 13:15 | disposition home or self-care (01) ==
LOC: ANHLAB 13:16
PROVIDERS: Nurse Practitioner Family; PCP Internal Medicine; Visit Provider Internal Medicine Hematology & Oncology
DX: D50.9 Iron deficiency anemia, unspecified (principal)
CPT/HCPCS: 36415; 85025

== ENCOUNTER 2023-10-17 06:34 | Day surgery (SDC) | payer MEDICARE, SELFPAY ==
[2023-09-30 11:57] VITALS: BMI 25.4
--- NOTE | 2023-10-17 06:31 | WPDANESEPPF ---
Anes - Initial Pre Proc Eval Procedure: Operation Date: 10/17/23 08:30 Proposed Procedures p A-1 Richelle Release Left Thumb - Susan Boyer MD Date/Time: 10/17/23 06:31 Surgeon: Susan Boyer MD Pre Op Diagnosis: Trigger Finger Left Thumb Patient Data Age: 73 Gender: F Height: 1.57 m Weight: 63 kg Allergies Allergy/AdvReac Type Severity Reaction Status Date / Time No Known Allergies Allergy Verified 10/17/23 07:38 Home Medications Medication Instructions Recorded Confirmed Type cetirizine 10 mg tablet (Zyrtec) 10 mg PO DAILY PRN Allergic 01/01/22 10/17/23 History Symptoms cyclosporine 0.05 % eye drops in a 1 drp EACH EYE Q12H 09/14/22 10/17/23 History dropperette (Restasis) CPAP machine #1 ea 12/04/22 10/10/23 Rx valacyclovir 1 gram tablet 2,000 mg PO Q12H PRN Cold sores 02/14/23 10/17/23 History atorvastatin 10 mg tablet 10 mg PO DAILY 09/30/23 10/17/23 History calcium carbonate 600 mg-vitamin 1 cap PO DAILY 09/30/23 10/17/23 History D3 10 mcg (400 unit) capsule levothyroxine 25 mcg tablet 25 mcg PO DAILY 09/30/23 10/17/23 History magnesium 500 mg tablet 500 mg PO DAILY 09/30/23 10/17/23 History turmeric 400 mg capsule 400 mg PO DAILY 09/30/23 10/17/23 History vitamin B complex 1 cap PO DAILY 09/30/23 10/17/23 History celecoxib 200 mg capsule (Celebrex) 200 mg PO DAILY PRN Pain #90 caps 10/03/23 10/17/23 Rx melatonin 3 mg capsule 3 mg PO QHS 10/10/23 10/17/23 History tramadol 50 mg tablet 50 mg PO Q6H PRN pain #12 tabs 10/17/23 Rx Patient hx anesthesia problems: none Family hx anesthesia problems: none Results Review: All pre-operative results and documents have been reviewed as part of the pre-operative evaluation. REPLACED BY [facility] Past Medical History Medical History (Updated 10/17/23 @ 06:32 by Goyo Michel DO) Bilateral cataracts Hyperlipidemia Hypertension Hypothyroidism Lipoma ROSSY (obstructive sleep apnea) CPAP Osteoarthritis Presence of tooth-root and mandibular implants Vitamin D deficiency Surgical History Surgical History H/O excision of mass 07/07/20 Left posterior shoulder mass measuring 2x1 cm, Right lateral chest wall mass measuring 12x7 cm History of bladder suspension procedure Status post carpal tunnel release Family History Family History Sibling Hypertension Diabetes mellitus Father Bone cancer Mother Liver cancer Social History Social History Social History: caffeine-coffee 2-3 cups daily Smoking packs per day: 2 Smoking cigarettes per day: 40.0 Years smoked: 17 Smoking pack-years: 34.00 Smoking status: Former smoker Tobacco type: cigarettes Second hand tobacco smoke exposure: Yes Smoking end date: 05/20/83 Additional smoking assessment comments: QUIT 1983 Alcohol intake: former Substance use: never Substance use type: does not use Do You Feel Safe in your Home?: Yes Lack of Transportation: No Lack of Food: Never True Current Housing: I Have Housing Concerned About Future Housing: No Difficulty Paying Gas/Electric Bills: No Difficulty Paying for Meds: No Currently Unemployed: No Education: Master's Degree or Higher Difficulty w/ Childcare or Family Care: No Living arrangements: with family Occupation/Education: retired Spiritual care concerns: No Anes - Eval Final PreProcedure Day of Procedure 10/17/23 06:31 Patient weight: overweight Heart: regular rate and rhythm Lungs: clear to auscultation Airway: Mallampati scale class II Neurological: alert and oriented Last oral intake: >/= 8 hours ASA classification: III Emergent: no Anesthetic plan: proceed Anesthesia type and monitoring: general GIVS and standard monitoring Results Review: All pre-operative results and documents have been reviewed as part of
--- NOTE | 2023-10-17 07:09 | PM.HPGS ---
History of Present Illness History of Present Illness Chief complaint: Trigger Finger Left Thumb Narrative: Patient seen and examined in pre-operative holding area. No interval change in medical history or symptoms. Patient recalls previous discussion of benefits and alternatives to procedure. Continues to desire to proceed with left thumb a1 aminta release . Reviewed procedure, post-op expectations and risks including but not limited to bleeding, infection, injury to tendon/nerve/vessel, decreased hand function, stiffness, RSD, no change or worsening of symptoms. I discussed the possible use of assistants and their participation in the case. Patient stated understanding and signed the consent form wishing to proceed. Review of Systems Review of Systems: All systems reviewed & are unremarkable except as noted in HPI and below PMFSH Past Medical History Medical History (Updated 10/17/23 @ 06:32 by Goyo Michel DO) Bilateral cataracts Hyperlipidemia Hypertension Hypothyroidism Lipoma ROSSY (obstructive sleep apnea) CPAP Osteoarthritis Presence of tooth-root and mandibular implants Vitamin D deficiency Surgical History Surgical History H/O excision of mass 07/07/20 Left posterior shoulder mass measuring 2x1 cm, Right lateral chest wall mass measuring 12x7 cm History of bladder suspension procedure Status post carpal tunnel release Family History Family History Sibling Hypertension Diabetes mellitus Father Bone cancer Mother Liver cancer Social History Social History Social History: caffeine-coffee 2-3 cups daily Smoking packs per day: 2 Smoking cigarettes per day: 40.0 Years smoked: 17 Smoking pack-years: 34.00 Smoking status: Former smoker Tobacco type: cigarettes Second hand tobacco smoke exposure: Yes Smoking end date: 05/20/83 Additional smoking assessment comments: QUIT 1983 Alcohol intake: former Substance use: never Substance use type: does not use Do You Feel Safe in your Home?: Yes Lack of Transportation: No Lack of Food: Never True Current Housing: I Have Housing Concerned About Future Housing: No Difficulty Paying Gas/Electric Bills: No Difficulty Paying for Meds: No Currently Unemployed: No Education: Master's Degree or Higher Difficulty w/ Childcare or Family Care: No Living arrangements: with family Occupation/Education: retired Spiritual care concerns: No Meds Home Medications and Allergies Home Medications Medication Instructions Recorded Confirmed Type cetirizine 10 mg tablet (Zyrtec) 10 mg PO DAILY PRN Allergic 01/01/22 10/17/23 History Symptoms cyclosporine 0.05 % eye drops in a 1 drp EACH EYE Q12H 09/14/22 10/17/23 History dropperette (Restasis) CPAP machine #1 ea 12/04/22 10/10/23 Rx valacyclovir 1 gram tablet 2,000 mg PO Q12H PRN Cold sores 02/14/23 10/17/23 History atorvastatin 10 mg tablet 10 mg PO DAILY 09/30/23 10/17/23 History calcium carbonate 600 mg-vitamin 1 cap PO DAILY 09/30/23 10/17/23 History D3 10 mcg (400 unit) capsule levothyroxine 25 mcg tablet 25 mcg PO DAILY 09/30/23 10/17/23 History magnesium 500 mg tablet 500 mg PO DAILY 09/30/23 10/17/23 History turmeric 400 mg capsule 400 mg PO DAILY 09/30/23 10/17/23 History vitamin B complex 1 cap PO DAILY 09/30/23 10/17/23 History celecoxib 200 mg capsule (Celebrex) 200 mg PO DAILY PRN Pain #90 caps 10/03/23 10/17/23 Rx melatonin 3 mg capsule 3 mg PO QHS 10/10/23 10/17/23 History tramadol 50 mg tablet 50 mg PO Q6H PRN pain #12 tabs 10/17/23 Rx Allergies Allergy/AdvReac Type Severity Reaction Status Date / Time No Known Allergies Allergy Verified 10/17/23 07:38 Exam Narrative: unchnaged Assessment and Plan Assessment and plan (1) Trigger thumb of left hand: Code(s
--- NOTE | 2023-10-17 07:10 | W.PM.PROC2 ---
Procedure Note - Detailed Date of Procedure 10/17/23 Pre-op Diagnosis Trigger Finger Left Thumb Post-op Diagnosis Same Procedure Performed left thumb a1 aminta release Surgeon Susan Boyer MD Anesthesia MAC Description of Procedure INFORMED CONSENT: The patient was seen and examined and marked in the pre-op area.? The patient signed the consent form. PROCEDURE IN DETAIL:The patient taken back to OR on the stretcher in supine position. Time out performed with anesthesia, surgeon and staff agreeing on patient's name site and surgery to be performed SCDs were placed on the lower extremities and inflated. A tourniquet was placed on {left} upper extremity and antibiotics given IV After anesthesia administered sedation I injected {3}cc 1%lido and 0.5% marcaine plain at the operative site The?{left upper extremity}?was prepped and draped in sterile fashion the??{left upper extremity} was? exsanguinated with Esmarch bandage and tourniquet inflated to 250mmHg I made an oblique incision over the left thumb a1 aminta through skin and dermis with 15 blade scalpel just proximal to mpj flexion crease. I used littler scissors to spread down to a1 pully. I sharply incised the aminta with 15 blade scalpel and then used littler scissors to spread above and below it proximally and distally and completed the transection entirely. Ragnell retractors were used to withdraw the fpl tendon for inspection. It was free of masses and synovitis and gliding smoothy in the sheath without triggering or crepitus. I irrigated with normal saline and closed with 4-0 chromic A dressing of xeroform, 4x4, kerry, and an daniela bandage after the tourniquet was let down noting the hand was warm and well perfused. The patient was then awaken from anesthesia and transferred to the recovery room in stable condition.? Complications - none EBL- 0cc Disposition - home in stable conditions eulogio toscano pa-c was essential for positioning, retraction, closure and dressing placement [facility] Billing Surgery - Charge Forward: Surgery Billing ([id number] same for eulogio amezquita )
[2023-10-17 07:50] VITALS: BP 143/90; PULSE 65; RESP 18; TEMP 36.4; O2SAT 99; BMI 25.7
[2023-10-17] MEDS: LACTATED RINGERS 1,000 ML 30 ML IV CONT (08:03)
[2023-10-17] MEDS: ceFAZolin SODIUM 2 GM/20 ML SW SYRINGE IV PUSH (08:51)
[2023-10-17] MEDS: LIDOCAINE HCL 1% LOCAL INJ 20 ML VIAL INFILTRATE (08:55)
[2023-10-17] MEDS: BUPivacaine HCL 0.5% 10 ML AMP 5 ML INFILTRATE (08:55)
[2023-10-17 09:12] VITALS: BP 103/58; PULSE 73; RESP 20; O2SAT 99
[2023-10-17 09:22] VITALS: BP 108/70; PULSE 77; RESP 18; O2SAT 98
[2023-10-17 09:32] VITALS: BP 113/69; PULSE 66; RESP 15; O2SAT 96
[2023-10-17 09:42] VITALS: BP 119/74; PULSE 65; RESP 16; O2SAT 96
--- NOTE | 2023-10-17 11:22 | WPDANESPN ---
Anes - Prog Note Post-Op Date/Time: 10/17/23 11:22 Cardiovascular status: normal Respiratory status: normal Airway patency: baseline Mental status: baseline Post-Op hydration status: normal Vital Signs: Last Vital Signs Temp 36.4 C 10/17/23 07:50 Pulse 65 10/17/23 09:42 Resp 16 10/17/23 09:42 BP 119/74 10/17/23 09:42 Pulse Ox 96 10/17/23 09:42 O2 Del Method Room Air 10/17/23 09:42 O2 Flow Rate 6 10/17/23 09:12 Pain Score (VAS): 0 I/O: Intake & Output 10/16/23 10/17/23 10/17/23 23:59 07:59 15:59 Intake Total 800 Balance 800 Post-procedural complaints: none Patient Feedback: Patient satisfied with anesthetic care. Other Findings: Patient vital signs back to baseline. Patient denies nausea and vomiting. Patient's pain under control. Patient OK for discharge.
== END 2023-10-17 09:55 | disposition home or self-care (01) ==
PROVIDERS: PCP Internal Medicine; Visit Provider Plastic Surgery
PROC: (CPT 26055; principal; 2023-10-17 08:30)
DX: M65.312 Trigger thumb, left thumb (principal)
CPT/HCPCS: 26055

== ENCOUNTER 2024-02-26 10:27 | Outpatient (CLI) | payer MEDICARE, SELFPAY ==
[2024-02-26 17:03] LABS: Cholesterol 161 mg/dL (0-200); HDL Direct 52 mg/dL; Triglycerides 98 mg/dL (<150)
[2024-02-26 17:14] LABS: LDL Cholesterol Direct 76 mg/dL
== END 2024-02-26 10:28 | disposition home or self-care (01) ==
LOC: ANHGOSHLAB 10:28
PROVIDERS: PCP Internal Medicine; Visit Provider Nurse Practitioner
DX: E03.9 Hypothyroidism, unspecified (principal); E78.5 Hyperlipidemia, unspecified
CPT/HCPCS: 36415; 80061; 84443

== ENCOUNTER 2024-04-13 12:12 | Outpatient (CLI) | payer MEDICARE, SELFPAY ==
[2024-04-13 12:33] LABS: Basophils Absolute Auto 0.1 K/mm3 (0.0-0.1); Basophils Percent Auto 0.9 % (0.2-1.2); Eosinophils Absolute Auto 0.1 K/mm3 (0-0.3); Eosinophils Percent Auto 1.5 % (0-4.4); Hematocrit 48.6 % (37.0-47.0); Hemoglobin 16.1 g/dL (12.0-15.0); Immature Granulocyte Absolute 0.01 K/mm3 (0.00-0.031); Immature Granulocyte Percent A 0.1 % (0-0.5); Lymphocytes Absolute Auto 1.97 K/mm3 (0.9-3.2); Lymphocytes Percent Auto 28.7 % (18.3-44.2); Mean Corpuscular HGB Conc 33.1 g/dl (32-36); Mean Corpuscular Hemoglobin 29.5 pg (26-34); Mean Platelet Volume 9.5 fl (7.4-10.4); Monocytes Absolute Auto 0.6 K/mm3 (0.1-0.6); Monocytes Percent Auto 8.4 % (2.6-8.5); Neutrophils Absolute Auto 4.2 K/mm3 (1.3-6.7); Neutrophils Percent Auto 60.4 % (45.5-73.1); Platelet Count Result 279 k/mm3 (150-375); Red Blood Count 5.46 M/mm3 (4.2-5.4); Red Cell Distribution Width 13.2 % (11.5-14.5); White Blood Count 6.9 K/mm3 (4.5-10.0)
[2024-04-13 12:58] LABS: Anion Gap 6 mmol/L (4-12); Blood Urea Nitrogen 13 mg/dL (7-17); Calcium 9.8 mg/dL (8.4-10.2); Carbon Dioxide 30 mmol/L (22-30); Chloride 104 mmol/L (98-107); Estimated Glomerular Filt Rate > 60; Glucose 87 mg/dL (65-110); Sodium 140 mmol/L (137-145)
[2024-04-13 13:20] LABS: Iron 102 ug/dL (37-170)
[2024-04-13 13:31] LABS: Percent Iron Saturation 31 % (20-50)
[2024-04-13 14:06] LABS: Folic Acid > 20.0 ng/mL (2.76->20)
== END 2024-04-13 12:13 | disposition home or self-care (01) ==
LOC: ANHLAB 12:13
PROVIDERS: PCP Internal Medicine; Visit Provider Internal Medicine Hematology & Oncology
DX: D50.9 Iron deficiency anemia, unspecified (principal)
CPT/HCPCS: 36415; 80048; 82607; 82728; 82746; 83540; 83550; 85025

== ENCOUNTER 2024-05-19 11:04 | Outpatient (CLI) | payer MEDICARE, SELFPAY ==
--- NOTE | ~2024-05-19 | MM_ITS ---
EXAMINATION: MM screening ricky BI w won HISTORY: Screening mammogram, family history of breast cancer in her mother. TECHNIQUE: Craniocaudal and mediolateral oblique 3-D tomosynthesis images were obtained and synthetic 2-D images were generated. CAD analysis was submitted and interpreted. COMPARISON: 05/18/2023, 03/05/2022, 01/25/2021 BREAST PARENCHYMAL COMPOSITION:Not Dense. There are scattered areas of fibroglandular density. FINDINGS: No suspicious mass, calcification, or architectural distortion are identified in either luz ast to suggest malignancy. There has been no suspicious interval change. IMPRESSION: No mammographic evidence of malignancy. Recommend routine screening mammography in one year. BI-RADS Category 1: Negative Reviewed, dictated and finalized at location . CAL ASSISTANT PER DIEM
== END 2024-05-19 11:05 | disposition home or self-care (01) ==
LOC: MICIMG 11:05
PROVIDERS: PCP Internal Medicine; Visit Provider Nurse Practitioner Obstetrics & Gynecology
DX: Z12.31 Encounter for screening mammogram for malignant neoplasm of breast (principal)
CPT/HCPCS: 77063; 77067

== ENCOUNTER 2024-07-22 13:04 | Outpatient (CLI) | payer MEDICARE, SELFPAY ==
[2024-07-22 13:18] LABS: Basophils Absolute Auto 0.1 K/mm3 (0.0-0.1); Basophils Percent Auto 0.6 % (0.2-1.2); Eosinophils Absolute Auto 0.1 K/mm3 (0-0.3); Eosinophils Percent Auto 1.6 % (0-4.4); Hematocrit 47.9 % (37.0-47.0); Immature Granulocyte Absolute 0.03 K/mm3 (0.00-0.031); Immature Granulocyte Percent A 0.3 % (0-0.5); Lymphocytes Absolute Auto 2.58 K/mm3 (0.9-3.2); Lymphocytes Percent Auto 29.9 % (18.3-44.2); Mean Corpuscular HGB Conc 33.4 g/dl (32-36); Mean Corpuscular Hemoglobin 29.8 pg (26-34); Mean Corpuscular Volume 89.2 fl (80-100); Mean Platelet Volume 9.6 fl (7.4-10.4); Monocytes Absolute Auto 0.8 K/mm3 (0.1-0.6); Neutrophils Absolute Auto 5.1 K/mm3 (1.3-6.7); Neutrophils Percent Auto 58.6 % (45.5-73.1); Platelet Count Result 280 k/mm3 (150-375); Red Blood Count 5.37 M/mm3 (4.2-5.4); Red Cell Distribution Width 13.2 % (11.5-14.5); White Blood Count 8.6 K/mm3 (4.5-10.0)
--- OUTSIDE RECORDS SUMMARY | 2024-07-22 14:23 | XMS_ITS | Referral Summary ---
Author Organization [facility] Address [address] [place] [address] Care Team Providers Care Telegraph Office Route Aide Name Role Phone Unavailable Primary Care Provider Unavailabl e Source Comments [facility],non-owned Affiliates and Associated Physician Practices is amultiple site organization consisting of ambulatory clinics and hospital sitesin [place], [place], [place] and [place]. This disclosure is being madepursuant to the Care Everywhere program and may not contain all information available regarding this patient. Last updated 18.[facility] Allergies No known active allergies Medications * Be aware that medications may not be up to date on this document. Alwaysverify current medications with the patient. Medication Sig Dispensed Refills Start Date End Date Status simvastatin (ZOCOR) 10 MG tablet Take 10 mg by mouth at bedtime. Active Glucosamine-Chondroit- Vit C-Mn (GLUCOSAMINE CHONDR 1500 COMPLX) CAPS Take 1 Cap by mouth once daily. Active Cholecalciferol (VITAMIN D3) 2000 UNITS TABS Take 2,000 Units by mouth once daily. Active celecoxib (CELEBREX) 200 MG capsule Take 200 mg by mouth once daily. Active Thiamine HCl (VITAMIN B-1 PO) Take 300 mg by mouth once daily. Active Coenzyme Q10 (CO Q 10 PO) Take 150 mg by mouth once daily. Active METHYLCOBALAMIN PO Take 10 mg by mouth once daily. Active Other Vitamin packet: Take 3 in am and 2 in pm. Active oxycodone-acetaminophe n (PERCOCET) 5-325 MG tablet Take 1 Tab by mouth every 4 hours as needed. 60 Tab 0 06/05/2012 Active Active Problems No known active problems Social History Tobacco Use Types Packs/Day Years Used Date Smoking Tobacco: Former Smokeless Tobacco: Never Comments:quit at age 30 Alcohol Use Standard Drinks/Week Comments No 0 (1 standard drink = 0.6 oz pur e alcohol) quit 4 years ago Sex and Gender Information Value Date Recorded Sex Assigned at Not on file Gender Identity Not on file Sexual Orientation Not on file Last Filed Vital Signs Vital Sign Reading Time Taken Comments Blood Pressure 90/52 06/05/2012 8:05 AM [employer] Pulse 65 06/05/2012 8:05 AM [employer] Temperature 36.8 C (98.3 F) 06/05/2012 8:05 AM [employer] Respiratory Rate 18 06/05/2012 8:05 AM [employer] Oxygen Saturation 95% 06/05/2012 8:05 AM [employer] Inhaled Oxygen Concentration - - Weight 58.1 kg (128 lb) 06/04/2012 6:00 AM [employer] Height 154.9 cm (5' 1 ) 06/04/2012 6:00 AM [employer] Body Mass Index 24.19 06/04/2012 6:00 AM [employer] Plan of Treatment Not on file Advance Directives * FULL RESUSCITATION (Latest Code Status on File) Date Activated Date Inactivated Comments 06/04/2012 10:53 AM 06/05/2012 2:20 PM * FULL RESUSCITATION Date Activated Date Inactivated Comments 06/04/2012 7:20 AM 06/04/2012 10:53 AM
--- OUTSIDE RECORDS SUMMARY | 2024-07-22 14:23 | XMS_ITS | Clinical Summary ---
Author Organization [facility] Address [address] [address] Phone Care Team Providers Care Insurance Account Specialist Name Role Phone Estiven Lehman MD [phone] Reason for Visit and Chief Complaint New Patient/Consult Problems Includes: Problems addressed during this encounter and other active Problems Current Visit Onset Date Resolved Date Provider Brittani collazo Status Trigger Finger of Thumb 06/11/2023 Estiven sexton MD Active Last Documented On 1:24PM ; [facility] Plan of Treatment No Plan of Treatment Recorded Assessments Includes: Assessments from this encounter No Assessments Recorded Medical Equipment - Implanted Devices Includes: Current Devices No Medical Equipment Recorded Medications Includes: Medications discussed during this encounter and other current Medications New / Renewed during this visit Estiven Lehman MD on 06/11/2023 Bactrim DS 800-160 MG Oral Tablet Provider: Estiven Lehman MD 10 day supply: 20 tablet, 0 refills Diagnosis: 1 every 12 hours Pharmacy: [address], [address] - Last Documented On 4 1:37PM By Estiven Lehman MD ; [facility] Current Medications (continue as prescribed) Atorvastatin Calcium 10 MG Oral Tablet 06/11/2023 Pr ovider: Diagnosis: Last Documented On 4 1:03PM By Margoth Recinos MA ; [facility] Levothyroxine Sodium 25 MCG Oral Capsule 06/11/2023 Provider: Diagnosis: Last Documented On 4 1:04PM By Margoth Recinos MA ; [facility] Celecoxib 200 MG Oral Capsule 06/11/2023 Provider: Diagnosis: Last Documented On 4 1:05PM By Margoth Recinos MA ; [facility] Restasis 0.05% Ophthalmic Emulsion 06/11/2023 Provid er: Diagnosis: Last Documented On 4 1:05PM By Margoth Recinos MA ; [facility] valACYclovir HCl 1 GM Oral Tablet 06/11/2023 Provide r: Diagnosis: Last Documented On 4 1:05PM By Margoth Recinos MA ; [facility] Melatonin 10 MG Oral Capsule 06/11/2023 Provider : Diagnosis: Last Documented On 4 1:06PM By Margoth Recinos MA ; [facility] Advanced Calcium Formula 200 MG Oral Tablet 06/11/2023 Provider: Diagnosis: Last Documented On 4 1:07PM By Margoth Recinos MA ; [facility] ZyrTEC 10 MG Oral Tablet Chewable 06/11/2023 Provide r: Diagnosis: Last Documented On 4 1:07PM By Margoth Recinos MA ; [facility] Medications Administered Includes: Administered Medications from this encounter No Administered Medications Recorded Results Includes: Results discussed during this encounter No Results Recorded For Specified Dates Social History Description Last Updated Former smoker 06/11/2023 Last Documented On 4 1:37PM ; [facility] 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 06/11/2023 Last Documented On 4 1:37PM ; [facility] Smoking Status Unknown Procedures and Surgical History Includes: Procedures from this encounter Procedures Code Diagnosis Performing Provider Service Location Service Date Tendon Injection(s) Lig / Sheath (Left Hand, Thumb) Trigger thumb, left thumb Estiven Lehman MD [facility] Orthopedics [facility] 06/11/2023 Last Documented On 4 4:55PM ; [facility] Celestone P/ 3 Mg J0702 Trigger thumb, left thumb Estiven Lehman MD [facility] Orthopedics [facility] 06/11/2023 Last Documented On 4 4:55PM ; [facility] Surgical History Last Updated History of cataract surgery 06/11/2023 Last Documented On 4 1:37PM ; [facility] History of decompression of median nerve at carpal tunnel 06/11/2023 Last Documented On 4 1:37PM ; [facility] Medical History Includes: Medical History addressed during this encounter Description Last Updated History of arthritis 06/11/2023 Last Documented On 4 1:37PM ; [facility] History of pure hypercholesterolemia Last Documented On 4 1:37PM ; [facility] Family History Includes: Family History addressed during this encounter No Family History Recorded Review of Systems Includes: Review of Systems from this encounter No Review of Systems Recorded Mental Status Includes: Mental Status from this encounter No Mental Status Recorded Functional Status Includes: Functional Status from this encounter No Functional Status Recorded Physical Exam Includes: Physical Exam from this encounter No Physical Exam Recorded Allergies Includes: Active Allergies No Known Allergies Encounters Encounter Provider Location Date Check-In Time Check-Out Time Diagnosis New Patient/Consul t Estiven Lehman MD [facility] Orthopedics [facility] 06/11/19 24 1:15PM 1:37PM Insurance Includes: Active Insurance Policies Plan Name Member ID Group # Subscriber Relationship Effect carlos Dates 1 - [employer] PPO/POS/Select/Op en Access/EPO [id number] Dejah Augustine Self 05/27/2023 - Unknown Clinical Notes Includes: Clinical Notes from this encounter * Progress note Date Encounter Last Documented by 06/11/2023 New Patient/Consult Last documen julianne on 06/11/2023; 1:37 PM, Estiven Lehman MD; [facility] Chief Complaint Left Hand Pain Notes HISTORY OF PRESENT ILLNESS: Dejah has noticed problems with her left thumb that started about 3 and half weeks ago She is noticed that it is hard for her to open and close her thumb is getting painful and sore and it is clicking She did try going to her primary care physician Dr. Garvey up in [facility] at that point she was recommended to try some therapy as well as some extension and flexion exercises and even a dryer ball to try squeezing Unfortunately things did not really change her symptoms very much Unrelated she has been having some issues with a UTI which started in early May She was treated initially with some nitrofurantoin and after that cephalexin but things were not improving so just yesterday she was prescribed ciprofloxacin We did check her culture results at [facility] and this was consistent with Proteus mirabilis which is susceptible to Bactrim PHYSICAL EXAM: General appearance normal. Alert and oriented to person place and time. Normal conjunctiva and irises bilaterally Respiratory Effort Normal Normal gait, no ambulatory aids. Pulses normal. Skin warm and dry - no obvious lesions Sensation normal in all 4 extremities. Balance and coordination normal. Normal mood and affect. She has full active range of motion bilateral shoulders elbows wrist and hands She can move the thumb but we are definitely seeing triggering if not full on locking of her left thumb None of the other fingers are triggering at this point she can move all the fingers without any difficulty She has moderate tenderness over the A1 aminta of her left thumb no tenderness anywhere else over any of the other digits She is neurovascular intact distally in the left upper extremity IMAGIN views of the left hand taken today at [facility] demonstrate no fracture no dislocation there is some mild osteoarthritis the basal joint of the left thumb but no acute bony abnormality ASSESSMENT/PLAN: 1. Left thumb trigger 2. UTI treated urgent care here in [place] with cultures positive for Proteus mirabilis sensitive to Bactrim Dejah and I discussed that her trigger thumb is the main reason she came in and I would recommend a steroid injection today we can do up to 3 injections usually about 6 weeks apart to try to get the trigger to resolve If that does not help we can certainly consider surgery but he is headed back to [place] in the end of June Regarding her UTI I think a more logical choice for antibiotics since she is concerned about the possibilities with fluoroquinolones of tendon issues especially given that she is done with a trigger thumb would be Bactrim The culture does show that the bacteria is sensitive to the Bactrim so she will give this a try if she is not feeling better in the next several days she will definitely seek out medical care with a smoking pipe mounter I will check her back in approximately 6 weeks for possible second injection LEFT THUMB TRIGGER INJECTION After triple prep with alcohol swabs, an injection of 1% lidocaine After triple prep with alcohol swabs, an injection of 1cc of 1% lidocaine and 1 cc of Celestone (6mg) were injected into the region of the A1 aminta of the Left Thumb. The patient tolerated procedure without any difficulty a sterile Band-Aid was applied. Active Problems & Conditions - Trigger Finger of Thumb Past Medical/Surgical History Diagnoses: Pure hypercholesterolemia. Arthritis Surgical: - Cataract surgery - Decompression of median nerve at carpal tunnel Allergies - No Known Allergies Current Medication - Advanced Calcium Formula 200 MG Oral Tablet 0 days, 0 refills - Atorvastatin Calcium 10 MG Oral Tablet 0 days, 0 refills - Celecoxib 200 MG Oral Capsule 0 days, 0 refills - [facility] Melatonin 10 MG Oral Capsule 0 days, 0 refills - Levothyroxine Sodium 25 MCG Oral Capsule 0 days, 0 refills - Restasis 0.05% Ophthalmic Emulsion 0 days, 0 refills - valACYclovir HCl 1 GM Oral Tablet 0 days, 0 refills - ZyrTEC 10 MG Oral Tablet Chewable 0 days, 0 refills Social History Tobacco use: Former smoker. 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 Plan StartCited - Other Bactrim DS 800-160 MG tablet 1 every 12 hours, 10 days, 0 refills EndCited Care Team - Estiven Lehman MD - Orthopaedic Surgery Health Reminders - Assess Tobacco Use satisfied 06/11/2023.
--- OUTSIDE RECORDS SUMMARY | 2024-07-22 14:23 | XMS_ITS ---
Author Organization [facility] Address [address] [address] Phone Care Team Providers Care Casing Worker Name Role Phone Dominik RIVERA, Estiven Limon [phone] Problems Includes: Active, inactive, and resolved Problems All Visits Onset Date Resolved Date Provider Condition S tatus Trigger Finger of Thumb 06/11/2023 Estiven sexton MD Active Last Documented On 4 1:24PM ; [facility] Plan of Treatment No Plan of Treatment Recorded Assessments Includes: Assessments for all patient encounters No Assessments Recorded Medical Equipment - Implanted Devices Includes: Current and historical Devices No Medical Equipment Recorded Medications Includes: Current and historical Medications Current Medications (continue as prescribed) Atorvastatin Calcium 10 MG Oral Tablet 06/11/2023 Pr ovider: Diagnosis: Last Documented On 4 1:03PM By Margoth Recinos MA ; [facility] Levothyroxine Sodium 25 MCG Oral Capsule 06/11/2023 Provider: Diagnosis: Last Documented On 4 1:04PM By Margoth Recinos MA ; [facility] Celecoxib 200 MG Oral Capsule 06/11/2023 Provider: Diagnosis: Last Documented On 4 1:05PM By Margoth Recinos MA ; [facility] Restasis 0.05% Ophthalmic Emulsion 06/11/2023 Provid er: Diagnosis: Last Documented On 4 1:05PM By Margoth Recinos MA ; [facility] valACYclovir HCl 1 GM Oral Tablet 06/11/2023 Provide r: Diagnosis: Last Documented On 4 1:05PM By Margoth Recinos MA ; [facility] Melatonin 10 MG Oral Capsule 06/11/2023 Provider : Diagnosis: Last Documented On 4 1:06PM By Margoth Recinos MA ; [facility] Advanced Calcium Formula 200 MG Oral Tablet 06/11/2023 Provider: Diagnosis: Last Documented On 4 1:07PM By Margoth Recinos MA ; [facility] ZyrTEC 10 MG Oral Tablet Chewable 06/11/2023 Provide r: Diagnosis: Last Documented On 4 1:07PM By Margoth Recinos MA ; [facility] Past Medications on file Bactrim DS 800-160 MG Oral Tablet 06/11/2023 - 06/21/2023 Provider: Estiven Lehman MD Diagnosis: 1 every 12 hours Last Documented On 4 1:37PM By Estiven Lehman MD ; [facility] Medications Administered Includes: Administered Medications in patient's chart No Administered Medications Recorded Results Includes: Results from 07/22/2021 through 07/22/2024 No Results Recorded For Specified Dates Social History Description Last Updated Former smoker 06/11/2023 Last Documented On 4 1:37PM ; [facility] 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 06/11/2023 Last Documented On 4 1:37PM ; [facility] Smoking Status Unknown Procedures and Surgical History Includes: Procedures from 07/22/2021 through 07/22/2024 Procedures Code Diagnosis Performing Provider Service Location Service Date Celestone P/ 3 Mg J0702 Trigger thumb, left thumb Estiven Lehman MD [facility] 06/11/2023 Last Documented On 4 4:55PM ; [facility] Tendon Injection(s) Lig / Sheath (Left Hand, Thumb) [address]86[address] Trigger thumb, left thumb Estiven Lehman MD [facility] 06/11/2023 Last Documented On 4 4:55PM ; [facility] Hand - Three Views (Left Side Procedure) 23665 Pain in left hand James Cuevas MD [facility] 06/11/2023 Last Documented On 4 1:21PM ; [facility] Surgical History Last Updated History of cataract surgery 06/11/2023 Last Documented On 4 1:37PM ; [facility] History of decompression of median nerve at carpal tunnel 06/11/2023 Last Documented On 4 1:37PM ; [facility] Medical History Includes: Medical History in patient's chart Description Last Updated History of arthritis 06/11/2023 Last Documented On 4 1:37PM ; [facility] History of pure hypercholesterolemia Last Documented On 4 1:37PM ; [facility] Family History Includes: Family History in patient's chart No Family History Recorded Review of Systems Review of Systems not supported for this document type No Review of Systems Recorded Mental Status No Mental Status Recorded Functional Status No Functional Status Recorded Physical Exam Physical Exam not supported for this document type No Physical Exam Recorded Allergies Includes: Active, inactive, and resolved Allergies No Known Allergies Encounters Includes: Encounters from 07/22/2021 through 07/22/2024 Encounter Provider Location Date Check-In Time Check-Out Time Diagnosis New Patient/Consul t Estiven Lehman MD [facility] [place] 06/11/19 1:15PM 1:37PM X-ray Hand - Left, 3 views [facility] 06/11/19 12:09PM 2:20PM Order Request - non billable encounter Estiven Lehman MD 05/28/19 1:54PM 11:59PM Insurance Includes: Active Insurance Policies Plan Name Member ID Group # Subscriber Relationship Effect carlos Dates 1 - [employer] PPO/POS/Select/Op en Access/EPO [id number] Dejah Augustine Self 05/27/2023 - Unknown Clinical Notes Includes: Signed Clinical Notes starting from 12/28/2022 * Progress note Date Encounter Last Documented by 06/11/2023 New Patient/Consult Last documen julianne on 06/11/2023; 1:37 PM, Estiven Lehman MD; [facility] Chief Complaint Left Hand Pain Notes [...] primary care physician Dr. 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 Left thumb trigger 2. UTI treated urgent care here in [place] with cultures positive for Proteus mirabilis sensitive [...] surgery but he is headed back to [place] in the end of June Regarding her [...] definitely seek out medical care with a rewards consultant I will check her back in approximately [...] History Tobacco use: Former smoker. 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 Plan StartCited - Other Bactrim DS 800-160 MG tablet 1 every 12 hours, 10 days, 0 refills EndCited Care Team - Estiven Lehman MD - Orthopaedic Surgery Health Reminders - Assess Tobacco Use satisfied 06/11/2023.
--- OUTSIDE RECORDS SUMMARY | 2024-07-22 14:23 | XMS_ITS | Referral Summary ---
Author Organization [address] Address [address] [place] [id number] Care Team Providers Care Underwriting Manager Name Role Phone Titus House DO Primary Care Provider [phone] Allergies No known active allergies Medications cholecalciferol (VITAMIN D-3) 2,000 unit tablet Take 2,000 Units by mouth. Active FLUZONE HIGH-DOSE , PF, 180 mcg/0.5 mL syringe 03/06/2017 Active levothyroxine (SYNTHROID, LEVOTHROID) 25 mcg tablet 04/08/2017 Active PREVNAR 13, PF, 0.5 mL vaccine 03/06/2017 Acti ve celecoxib (CeleBREX) 200 mg capsule Take 200 mg by mouth. Active loratadine (CLARITIN) 10 mg tablet 10/18/2018 Active multivit-min/darling sawyer fumarate (MULTI VITAMIN ORAL) 10/18/2017 Active Restasis MultiDose 0.05 % drops INT 1 GTT IN OU BID 11/02/2019 Active vitamin B complex capsule Acti ve vitamin E (AQUASOL E) 400 unit capsule Active atorvastatin (LIPITOR) 10 mg tablet Take 10 mg by mouth daily 07/31/2021 Active Active Problems Problem Noted Date Diagnosed Date Postmenopausal status 10/03/2015 Multiple-type hyperlipidemia 10/03/2013 Overview (08/23/2016): MIXED HYPERLIPIDEMIA Benign hypertension 10/03/2013 Overview (08/23/2016): BENIGN HYPERTENSION Depression 10/03/2013 Overview (08/23/2016): DEPRESSIVE DISORDER NEC Immunizations Immunization Administration Dates Next Due Hep A, Adult 04/24/2011,10/23/2010 Influenza, Quadrivalent, Spl it, Preservative Free, Intramuscular 03/15/2014,04/08/2013 Influenza, Split 04/24/2011,02/17/2010 Influenza, Trivalent, High D ose, Split, Preservative Free, Intramuscular 01/21/2019,02/10/2018,03/05/2017,02/25,03/28/2015 Influenza, Trivalent, IM (MDV) 03/02/2009,2007 Pneumococcal Conjugate PCV 13 03/05/2017 Pneumococcal Polysaccharide PPV23 04/03/2018 Td, adsorbed 10/23/2010,03/02/2002 Tdap 04/08/2013 ZOSTER Recombinant 05/15/2019,01/21/2019 Social History Tobacco Use Types Packs/Day Years Used Date Smoking Tobacco: Former Smokeless Tobacco: Current Comments:Smoking History Pac ks/day: 2 Packs Alcohol Use Standard Drinks/Week Comments No 0 (1 standard drink = 0.6 oz pur e alcohol) Comments No Sex and Gender Information Value Date Recorded Sex Assigned at Not on file Legal Sex 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 Gender Identity Female 10/13/2019 2:32 PM CDT Sexual Orientation Bisexual 10/13/2019 2: 33 PM CDT Last Filed Vital Signs Vital Sign Reading Time Taken Comments Blood Pressure 116/77 08/23/2021 9:59 AM CDT Pulse 66 11/17/2019 2:20 PM CDT Temperature - - Respiratory Rate - - Oxygen Saturation - - Inhaled Oxygen Concentration - - Weight 65.1 kg (143 lb 9.6 oz) 08/23/2021 9:59 A M CDT Height 154.9 cm (5' 1 ) 08/23/2021 9:59 AM CDT Body Mass Index 27.13 08/23/2021 9:59 AM CDT Plan of Treatment Not on file Procedures Procedure Name Priority Date/Time Associated Diagnosis Comments DEXA AXIAL SKELETON BONE DENSITY 1 OR MORE SITES Schedule Routine, Read Routine (OP Routine) 11/04/2019 10:21 AM CDT Screening for osteoporosis Postmenopause SCREENING MAMMOGRAM Routine 05/21/2014 1:49 PM BUSINESS LOAN PROCESSOR from Last 3 Months or Most Recently Relevant to Health Maintenance Results * Dexa Axial Skeleton Bone Density 1 Or 2 Site (11/04/2019 10:21 AM CDT) Anatomical Region Laterality Modality Body N/A Digital Radiogra phy 11/04/2019 10:3 8 AM CDT Impressions 11/04/2019 11:07 AM CDT 1. The bone mineral density of the lumbar spine is mildly decreased. There has been a statistically significant decrease in bone mineral density since the baseline examination of 07/12/2005. 2. The bone mineral density of the left femoral neck is normal. There has been a statistically significant decrease in bone mineral density since the baseline examination of 12/14/1997. 3. The bone mineral density of the left total hip is normal. There has been a statistically significant decrease in bone mineral density since the baseline examination of 12/14/1997. 4. Overall, the above findings are diagnostic of low bone mass (osteopenia) by WHO criteria. 5. Based on the FRAX fracture risk model, the 10-year probability for major osteoporotic fracture is 7.7% and that for hip fracture is 0.7%. This 10-year fracture risk estimate was calculated using the risk factors noted in the history above, along with the femoral neck bone density. FRAX is intended to help guide treatment decisions in men over age 50 and postmenopausal women with low bone mass (osteopenia). The National Osteoporosis Foundation (NOF) recommends that FDA-approved medical therapies be considered in postmenopausal women and men age 50 years and older with osteoporosis and those with low bone mass whose 10-year fracture probability by FRAX is >= 20% for major osteoporotic fracture or >= 3% for hip fracture. However, all treatment decisions require clinical judgment and consideration of individual patient factors, including patient preferences, comorbidities, previous drug use, risk factors not captured in the FRAX model (e.g., frailty, falls, vitamin D deficiency, increased bone turnover, interval significant decline in bone density) and possible under- or overestimation of fracture risk by FRAX. General comments regarding interpretation of bone density measurements: A) In children, premenopausal woman and males under age 50 not at increased risk for fractures only Z-scores, not T-scores are used to indicate risk. A Z-score above -2.0 is defined as within the expected range for age and Z-score at or less than -2.0 is below the expected range for age . A Z-score below the expected range for age in a patient with recent fractures and/or chronic corticosteroid treatment is consistent with a diagnosis of osteoporosis. B) In post menopausal women and males over 50, comparison of the measured bone mineral density with the average value in young normal subjects (the T-score ) has been found to be useful in assessing fracture risk. Fracture risk approximately doubles for each 1.0 standard deviation (SD) in individual's hip or spine bone mineral density is below the average value of young normal subjects. The World Health Organization (WHO) has defined T-scores of -1.0 to -2.5 as diagnostic of low bone mass (OSTEOPENIA), and T-scores of -2.5 or lower to be diagnostic of OSTEOPOROSIS, based on the site of lowest bone density. Note that there will be a change in reporting format and reference databases as patients move from the younger population (group A) to the older population (group B) The National Osteoporosis Foundation (www.nof.org) recommends adequate intake of calcium and vitamin D and regular weight-bearing exercise in all patients. They recommend pharmacologic treatment in postmenopausal women and men age 50 and older presenting with any of the followin) Osteoporosis, after appropriate evaluation to exclude secondary causes. 2) A hip or vertebral (clinical or radiographic) fracture, regardless of the bone density. 3) Low bone mass (Osteopenia) and one or more of: other prior fractures, secondary causes associated with high risk of fracture (such as glucocorticoid use or total immobilization), or computed high risk of fracture (10-yr probability of hip fracture >= 3% or a 10-yr probability of any major osteoporosis-related fracture >= 20% based on the [place].-adapted WHO algorithm), available at http://www.shef.ac.uk/FRAX). Dictated by: Yumiko Bo M.D. The radiology attending physician has personally reviewed this study, and had reviewed and/or edited this written report and agrees with it. Electronically signed by: Nate Pulido M.D. Narrative 11/04/2019 11:07 AM CDT BONE DENSITOMETRY OF THE SPINE AND HIP DATE OF STUDY: 11/04/2019 HISTORY: 69-year-old postmenopausal woman with height loss. She is being treated with vitamin D. Evaluate bone mineral density. Additional risk factors for fracture: none. FINDINGS (SPINE): The bone mineral density of L1-L4 was assessed by dual-energy x-ray absorptiometry. The average bone mineral density within this region is 0.900 gm/sq-cm. This is 0.7 standard deviations above the mean of the average bone mineral density for age- and gender-matched subjects (the Z-score). It is 1.3 standard deviations below the mean peak bone mineral density in young adults (the T-score). FINDINGS (FEMORAL NECK): The bone mineral density of the left femoral neck was assessed by dual-energy x-ray absorptiometry. The average bone mineral density within the femoral neck region is 0.771 gm/sq-cm. This is 1.1 standard deviations above the mean of the average bone mineral density for age- and gender-matched subjects (the Z-score). It is 0.7 standard deviations below the mean peak bone mineral density in young adults (the T-score). FINDINGS (TOTAL HIP): The bone mineral density of the left hip was assessed by dual-energy x-ray absorptiometry. The average bone mineral density within the total hip region is 0.868 gm/sq-cm. This is 0.9 standard deviations above the mean of the average bone mineral density for age- and gender-matched subjects (the Z-score). It is 0.6 standard deviations below the mean peak bone mineral density in young adults (the T-score). SUMMARY OF CURRENT RESULTS: Region BMD T-score Z-score AP Spine (L1-L4) 0.900 -1.3 0.7 Femoral Neck (Left) 0.771 -0.7 1.1 Total Hip (Left) 0.868 -0.6 0.9 COMPARISON WITH PREVIOUS RESULTS Region Age BMD T-score BMD Change BMD Change Exam Date g/cm2 vs Baseline vs Previous AP Spine (L1-L4) 11/04/2019 69 0.900 -1.3 -15.6%* -16.9%* 02/27/2008 57 1.083 0.3 1.6% 1.6% 07/12/2005 55 1.066 0.2 Femoral Neck(Left) 11/04/2019 69 0.771 -0.7 -17.5%* -13.1%* 02/27/2008 57 0.888 0.3 -5.1%* -3.0% 07/12/2005 55 0.915 0.6 -2.1% -2.1% 12/14/1997 47 0.935 0.8 Total Hip(Left) 11/04/2019 69 0.868 -0.6 -18.7%* -12.7%* 02/27/2008 57 0.994 0.4 -7.0%* -3.0%* 07/12/2005 55 1.025 0.7 -4.0%* -4.0%* 12/14/1997 47 1.068 1.0 *Denotes significance at 95% confidence level Procedure Note Nate Pinto MD - 11/04/2019 BONE DENSITOMETRY OF THE SPINE AND HIP DATE OF STUDY: 11/04/2019 HISTORY: 69-year-old postmenopausal woman with height loss. She is being treated with vitamin D. Evaluate bone mineral density. Additional risk factors for fracture: none. FINDINGS (SPINE): The bone mineral density of L1-L4 was assessed by dual-energy x-ray absorptiometry. The average bone mineral density within this region is 0.900 gm/sq-cm. This is 0.7 standard deviations above the mean of the average bone mineral density for age- and gender-matched subjects (the Z-score). It is 1.3 standard deviations below the mean peak bone mineral density in young adults (the T-score). FINDINGS (FEMORAL NECK): The bone mineral density of the left femoral neck was assessed by dual-energy x-ray absorptiometry. The average bone mineral density within the femoral neck region is 0.771 gm/sq-cm. This is 1.1 standard deviations above the mean of the average bone mineral density for age- and gender-matched subjects (the Z-score). It is 0.7 standard deviations below the mean peak bone mineral density in young adults (the T-score). FINDINGS (TOTAL HIP): The bone mineral density of the left hip was assessed by dual-energy x-ray absorptiometry. The average bone mineral density within the total hip region is 0.868 gm/sq-cm. This is 0.9 standard deviations above the mean of the average bone mineral density for age- and gender-matched subjects (the Z-score). It is 0.6 standard deviations below the mean peak bone mineral density in young adults (the T-score). SUMMARY OF CURRENT RESULTS: Region BMD T-score Z-score AP Spine (L1-L4) 0.900 -1.3 0.7 Femoral Neck (Left) 0.771 -0.7 1.1 Total Hip (Left) 0.868 -0.6 0.9 COMPARISON WITH PREVIOUS RESULTS Region Age BMD T-score BMD Change BMD Change Exam Date g/cm2 vs Baseline vs Previous AP Spine (L1-L4) 11/04/2019 69 0.900 -1.3 -15.6%* -16.9%* 02/27/2008 57 1.083 0.3 1.6% 1.6% 07/12/2005 55 1.066 0.2 Femoral Neck(Left) 11/04/2019 69 0.771 -0.7 -17.5%* -13.1%* 02/27/2008 57 0.888 0.3 -5.1%* -3.0% 07/12/2005 55 0.915 0.6 -2.1% -2.1% 12/14/1997 47 0.935 0.8 Total Hip(Left) 11/04/2019 69 0.868 -0.6 -18.7%* -12.7%* 02/27/2008 57 0.994 0.4 -7.0%* -3.0%* 07/12/2005 55 1.025 0.7 -4.0%* -4.0%* 12/14/1997 47 1.068 1.0 *Denotes significance at 95% confidence level IMPRESSION: 1. The bone mineral density of the lumbar spine is mildly decreased. There has been a statistically significant decrease in bone mineral density since the baseline examination of 07/12/2005. 2. The bone mineral density of the left femoral neck is normal. There has been a statistically significant decrease in bone mineral density since the baseline examination of 12/14/1997. 3. The bone mineral density of the left total hip is normal. There has been a statistically significant decrease in bone mineral density since the baseline examination of 12/14/1997. 4. Overall, the above findings are diagnostic of low bone mass (osteopenia) by WHO criteria. 5. Based on the FRAX fracture risk model, the 10-year probability for major osteoporotic fracture is 7.7% and that for hip fracture is 0.7%. This 10-year fracture risk estimate was calculated using the risk factors noted in the history above, along with the femoral neck bone density. FRAX is intended to help guide treatment decisions in men over age 50 and postmenopausal women with low bone mass (osteopenia). The National Osteoporosis Foundation (NOF) recommends that FDA-approved medical therapies be considered in postmenopausal women and men age 50 years and older with osteoporosis and those with low bone mass whose 10-year fracture probability by FRAX is >= 20% for major osteoporotic fracture or >= 3% for hip fracture. However, all treatment decisions require clinical judgment and consideration of individual patient factors, including patient preferences, comorbidities, previous drug use, risk factors not captured in the FRAX model (e.g., frailty, falls, vitamin D deficiency, increased bone turnover, interval significant decline in bone density) and possible under- or overestimation of fracture risk by FRAX. General comments regarding interpretation of bone density measurements: A) In children, premenopausal woman and males under age 50 not at increased risk for fractures only Z-scores, not T-scores are used to indicate risk. A Z-score above -2.0 is defined as within the expected range for age and Z-score at or less than -2.0 is below the expected range for age . A Z-score below the expected range for age in a patient with recent fractures and/or chronic corticosteroid treatment is consistent with a diagnosis of osteoporosis. B) In post menopausal women and males over 50, comparison of the measured bone mineral density with the average value in young normal subjects (the T-score ) has been found to be useful in assessing fracture risk. Fracture risk approximately doubles for each 1.0 standard deviation (SD) in individual's hip or spine bone mineral density is below the average value of young normal subjects. The World Health Organization (WHO) has defined T-scores of -1.0 to -2.5 as diagnostic of low bone mass (OSTEOPENIA), and T-scores of -2.5 or lower to be diagnostic of OSTEOPOROSIS, based on the site of lowest bone density. Note that there will be a change in reporting format and reference databases as patients move from the younger population (group A) to the older population (group B) The National Osteoporosis Foundation (www.nof.org) recommends adequate intake of calcium and vitamin D and regular weight-bearing exercise in all patients. They recommend pharmacologic treatment in postmenopausal women and men age 50 and older presenting with any of the followin) Osteoporosis, after appropriate evaluation to exclude secondary causes. 2) A hip or vertebral (clinical or radiographic) fracture, regardless of the bone density. 3) Low bone mass (Osteopenia) and one or more of: other prior fractures, secondary causes associated with high risk of fracture (such as glucocorticoid use or total immobilization), or computed high risk of fracture (10-yr probability of hip fracture >= 3% or a 10-yr probability of any major osteoporosis-related fracture >= 20% based on the [place].-adapted WHO algorithm), available at http://www.shef.ac.uk/FRAX). Dictated by: Yumiko Bo M.D. The radiology attending physician has personally reviewed this study, and had reviewed and/or edited this written report and agrees with it. Electronically signed by: Nate Pulido M.D. Priscila Lau MD IMG DXA PROCEDURES Final Result * Screening Mammogram (05/21/2014 1:49 PM BUSINESS LOAN PROCESSOR) Anatomical Region Laterality Modality Breast N/A Mammography 05/21/2014 1:49 PM BUSINESS LOAN PROCESSOR Narrative 05/21/2014 2:23 PM BUSINESS LOAN PROCESSOR LAISHA NO M.D. FINAL REPORT ACC# Date Time Exam [id number] May 21, 2014 13:49:00 [facility] [address] Screen Dig Brst Niall Bi EXAMINATION: Mammogram Technique: Bilateral Bilateral Full Field Screening Mammography was performed with Tomosynthesis. Views obtained: . Computer Aided Detection was performed with [employer].3 version 9.3. Mammogram Findings: The present examination has been compared to prior imaging studies performed at [facility] on 05/07/2013, 05/06/2012, 05/01/2011, 04/11/2010 and 03/02/2009. The breasts are heterogeneously dense which could obscure a lesion on mammography. There is no suspicious abnormality in either breast. IMPRESSION: Annual screening mammography is recommended. OVERALL FINAL ASSESSMENT: BI-RADS CATEGORY 1: Negative. Requested By: Dictated By: LAISHA NO M.D. on May 21 2014 2:23P This document has been electronically signed by: LAISHA NO M.D. on May 21 2014 2:23P Procedure Note Provider, MD Dileep - 09/11/2016 LAISHA NO M.D. FINAL REPORT ACC# Date Time Exam [id number] May 21, 2014 13:49:00 [facility] [address] Screen Dig Brst Niall Bi EXAMINATION: Mammogram Technique: Bilateral Bilateral Full Field Screening Mammography was performed with Tomosynthesis. Views obtained: . Computer Aided Detection wasperformed with [employer] 1.3 version 9.3. Mammogram Findings: The present examination has been compared to prior imaging studies performed at [facility] on 05/07/2013, 05/06/2012,05/01/2011, 04/11/2010 and 03/02/2009. The breasts are heterogeneously dense which could obscure a lesion on mammography. There is no suspicious abnormality in either breast. IMPRESSION: Annual screening mammography is recommended. OVERALL FINAL ASSESSMENT: BI-RADS CATEGORY 1: Negative. Requested By: Dictated By: LAISHA NO M.D. on May 21 2014 2:23P This document has been electronically signed by: LAISHA NO M.D. on May 21 2014 2:23P Historical Provider MD [facility] PROCEDURES Denise l Result from Last 3 Months or Most Recently Relevant to Health Maintenance Insurance [employer] [facility] Address: [place] [id number] [place] [address] [employer] [facility] Address: [facility] [address] [place] [address] Care Teams Underwriting Manager Relationship Specialty Start Date End Date Titus House DO PCP - General Internal Medicine 11/16/19
--- OUTSIDE RECORDS SUMMARY | 2024-07-22 14:23 | XMS_ITS | Clinical Summary ---
Author Organization [facility] Address [address] [address] Phone Care Team Providers Care Sec Reporting Consultant Name Role Phone Dominik RIVERA, Estiven Limon [phone] Reason for Visit and Chief Complaint X-ray Hand - Left, 3 views Problems Includes: Problems addressed during this encounter and other active Problems All Visits Onset Date Resolved Date Provider Condition S tatus Trigger Finger of Thumb 06/11/2023 Estiven sexton MD Active Last Documented On 4 1:24PM ; [facility] Plan of Treatment No Plan of Treatment Recorded Assessments Includes: Assessments from this encounter No Assessments Recorded Medical Equipment - Implanted Devices Includes: Current Devices No Medical Equipment Recorded Medications Includes: Medications discussed during this encounter and other current Medications Current Medications (continue as prescribed) Atorvastatin Calcium 10 MG Oral Tablet 06/11/2023 Pr ovider: Diagnosis: Last Documented On 4 1:03PM By Margoth Recinos MA ; [facility] Levothyroxine Sodium 25 MCG Oral Capsule 06/11/2023 Provider: Diagnosis: Last Documented On 4 1:04PM By Margoth Recinos MA ; [facility] Celecoxib 200 MG Oral Capsule 06/11/2023 Provider: Diagnosis: Last Documented On 4 1:05PM By Margoth Recinos MA ; [facility] Restasis 0.05% Ophthalmic Emulsion 06/11/2023 Provid er: Diagnosis: Last Documented On 4 1:05PM By Margoth Recinos MA ; [facility] valACYclovir HCl 1 GM Oral Tablet 06/11/2023 Provide r: Diagnosis: Last Documented On 4 1:05PM By Margoth Recinos MA ; [facility] Melatonin 10 MG Oral Capsule 06/11/2023 Provider : Diagnosis: Last Documented On 4 1:06PM By Margoth Recinos MA ; [facility] Advanced Calcium Formula 200 MG Oral Tablet 06/11/2023 Provider: Diagnosis: Last Documented On 4 1:07PM By Margoth Recinos MA ; [facility] ZyrTEC 10 MG Oral Tablet Chewable 06/11/2023 Provide r: Diagnosis: Last Documented On 4 1:07PM By Margoth Recinos MA ; [facility] Medications Administered Includes: Administered Medications from this encounter No Administered Medications Recorded Results Includes: Results discussed during this encounter No Results Recorded For Specified Dates Social History No Social History Recorded - Smoking Status Unknown Procedures and Surgical History Includes: Procedures from this encounter Procedures Code Diagnosis Performing Provider Service Location Service Date Hand - Three Views (Left Side Procedure) 50811 Pain in left hand James Cuevas MD [facility] 06/11/2023 Last Documented On 4 1:21PM ; [facility] Medical History Includes: Medical History addressed during this encounter No Medical History Recorded Family History Includes: Family History addressed during [...] Location Date Check-In Time Check-Out Time Diagnosis X-ray Hand - Left, 3 views [facility] 06/11/2023 12:09PM 2:20PM Insurance Includes: Active Insurance Policies Plan Name Member ID Group # Subscriber Relationship Effect carlos Dates 1 - [employer] PPO/POS/Select/Op en Access/EPO [id number] Dejah Baptisteer Self 05/27/2023 - Unknown Clinical Notes Includes: Clinical Notes from this encounter No Clinical Notes Recorded
--- OUTSIDE RECORDS SUMMARY | 2024-07-22 14:23 | XMS_ITS | Clinical Summary ---
Author Organization [facility] Address [address] [place] [address] Care Team Providers Care Information Clerk Brokerage Name Role Phone Titus House DO Primary Care Provider Allergies No known active allergies Medications atorvastatin (LIPITOR) 10 mg tablet Take 10 mg by mouth daily. 07/31/2021 Active celecoxib (CeleBREX) 200 mg capsule Take 200 mg by mouth. Active cycloSPORINE (RESTASIS) 0.05 % emulsion 1 Drop 2 times daily. Active levothyroxine 25 mcg tablet Take 25 mcg by mouth daily in the morning. Active VITAMIN B COMPLEX ORAL Active therapeutic multivitamin liquid Take 5 mL by mouth daily. Active turm/ging/russ/yuc /roberth/jared/hor (TUMERSAID ORAL) Take by mouth. Active Active Problems No known active problems Encounters Date Type Department Care Team Description 07/21/2024 External Device Data STL ABSTRACTION Provider, Abstract 07/13/2024 Orders Only [facility] Oncology and Hematology - [place] [address] [place] [address] Sekou Tenorio MD Iron deficiency anemia, unspecified iron deficiency anemia type (Primary Dx) 07/07/2024 External Device Data STL ABSTRACTION Provider, Abstract 06/11/2024 External Device Data STL ABSTRACTION Provider, Abstract 06/10/2024 External Device Data STL ABSTRACTION Provider, Abstract 06/09/2024 External Device Data STL ABSTRACTION Provider, Abstract 06/02/2024 External Device Data STL ABSTRACTION Provider, Abstract from Last 3 Months Family History Medical History Relation Name Comments Heart Disease Father Testicular Cancer Father Breast Cancer Mother Relation Name Status Comments Brother Alive Father Mother Sister 1 Alive Sister 2 Alive Social History Tobacco Use Types Packs/Day Years Used Date Smoking Tobacco: Former Cigarettes 1 7 - 1983 Smokeless Tobacco: Never Tobacco Cessation:Counseling Given: Not Answered Alcohol Use Standard Drinks/Week Comments Not Currently 0 (1 standard drink = 0.6 oz pur e alcohol) Comments Unknown Sex and Gender Information Value Date Recorded Sex Assigned at Not on file Legal Sex Female 9:20 AM CDT Gender Identity Not on file Sexual Orientation Not on file Last Filed Vital Signs Vital Sign Reading Time Taken Comments Blood Pressure 114/72 04/20/2024 1:02 PM ROLLING CHAIR PUSHER Pulse 68 04/20/2024 1:02 PM ROLLING CHAIR PUSHER Temperature 36.4 C (97.5 F) 04/20/2024 1:02 PM ROLLING CHAIR PUSHER Respiratory Rate 16 04/20/2024 1:02 PM ROLLING CHAIR PUSHER Oxygen Saturation 96% 04/20/2024 1:02 PM ROLLING CHAIR PUSHER Inhaled Oxygen Concentration - - Weight 60.3 kg (133 lb) 04/20/2024 1:02 PM ROLLING CHAIR PUSHER Height 154.9 cm (5' 1 ) 03/26/2023 3:28 PM ROLLING CHAIR PUSHER Body Mass Index 25.13 03/26/2023 3:28 PM ROLLING CHAIR PUSHER Plan of Treatment Upcoming Encounters Date Type Department Care Team (Late st Contact Info) Description 07/28/2024 11:30 AM CDT Office Visit [facility] Oncology and Hematology [facility] [address] [facility] [address] [place] [address] Sekou Tenorio MD [address] [facility] [address] [place] [address] Health Maintenance Due Date Last Done Comments COLORECTAL SCREENING 1995 Colorectal Cancer Screening 1995 FIT-DNA Q 3 years 1995 FIT/FOBT Q 1 year 1995 Flex Sig/CT Colonography Q 5 years 1995 BREAST CANCER SCREENING 05/21/2015 05/21/19 15, 05/21/2014, 05/07/2013 DTAP/TDAP/TD VACCINES (2 - T d or Tdap) 04/08/2023 04/08/2013 INFLUENZA VACCINE (#1) 2023 9, 02/10/2018, 03/05/2017, Additional history exists Medicare Advantage ([place]) Preventative Visit/Annual Wellness Visit 05/20/2024 08/23/2021, 11/17/2019 RSV VACCINE (60+ or ) (1 - 1-dose 75+ series) 2025 PNEUMOCOCCAL VACCINE 50+ YEARS Completed 04/03/2018 , 03/05/2017 ZOSTER VACCINE Completed 05/15/2019, 01/21/2019 OSTEOPOROSIS SCREENING Completed 11/04/2019, 2019 Insurance [employer] PPO MCR Care Teams Information Clerk Brokerage Relationship Specialty Start Date End Date Titus House DO [address] [facility] [address] [place] [address] PCP - General Internal Medicine 12/14/22
--- OUTSIDE RECORDS SUMMARY | 2024-07-22 14:23 | XMS_ITS | Clinical Summary ---
Author Organization [facility] Address [address] [address] Phone Care Team Providers Care Care Nurse Rn Name Role Phone Dominik RIVERA, Estiven Limon [phone] Reason for Visit and Chief Complaint Order Request - non billable encounter Problems Includes: Problems addressed during this encounter and other active Problems All Visits Onset Date Resolved Date Provider Condition S tatus Trigger Finger of Thumb 06/11/2023 Estiven sexton MD Active Last Documented On 4 1:24PM ; [facility] Plan of Treatment No Plan [...] 4 1:03PM By Margoth Recinos MA ; [facility] Levothyroxine Sodium 25 MCG Oral Capsule 06/11/2023 Provider: Diagnosis: Last Documented On 4 1:04PM By Margoth Recinos MA ; [facility] Celecoxib 200 MG Oral Capsule 06/11/2023 Provider: Diagnosis: Last Documented On 4 1:05PM By Margoth Recinos MA ; [facility] Restasis 0.05% Ophthalmic Emulsion 06/11/2023 Provid er: Diagnosis: Last Documented On 4 1:05PM By Margoth Recinos MA ; [facility] valACYclovir HCl 1 GM Oral Tablet 06/11/2023 Provide r: Diagnosis: Last Documented On 4 1:05PM By Margoth Recinos MA ; [facility] Melatonin 10 MG Oral Capsule 06/11/2023 Provider : Diagnosis: Last Documented On 4 1:06PM By Margoth Recinos MA ; [facility] Advanced Calcium Formula 200 MG Oral Tablet 06/11/2023 Provider: Diagnosis: Last Documented On 4 1:07PM By Margoth Recinos MA ; [facility] ZyrTEC 10 MG Oral Tablet Chewable 06/11/2023 Provide r: Diagnosis: Last Documented On 4 1:07PM By Margoth Recinos MA ; [facility] Medications Administered Includes: Administered Medications from this encounter No Administered Medications Recorded Results Includes: Results discussed during this encounter No Results Recorded For Specified Dates Social History No Social History Recorded - Smoking Status Unknown Medical History Includes: Medical History addressed during [...] Location Date Check-In Time Check-Out Time Diagnosis Order Request - non billable encounter Estiven Lehman MD 05/28/2023 1:54PM 11:59PM Insurance Includes: Active Insurance Policies Plan Name Member ID Group # Subscriber Relationship Effect carlos Dates 1 - [employer] PPO/POS/Select/Op en Access/EPO [id number] Dejah Siu 05/27/2023 - Unknown Clinical Notes Includes: Clinical Notes from this encounter No Clinical Notes Recorded
--- OUTSIDE RECORDS SUMMARY | 2024-07-22 14:23 | XMS_ITS ---
Care Plan - [facility] Created on: July 22, 2024 Dejah Augustine : 1950 Sex: Female Author Organization [facility] Address [address] [address] Phone Care Team Providers Care Real Estate Accountant Name Role Phone Dominik RIVERA, Estiven Martinez Unavailable
--- OUTSIDE RECORDS SUMMARY | 2024-07-22 14:23 | XMS_ITS | Clinical Summary ---
Author Organization [address] Address [address] [place] [address] Care Team Providers Care Hse Specialist Name Role Phone Titus House DO Primary Care Provider [phone] Allergies No known active allergies Medications cholecalciferol [...] adsorbed 10/23/2010,03/02/2002 Tdap 04/08/2013 ZOSTER Recombinant 05/15/2019,01/21/2019 Surgical History Surgery Date Site/Laterality Comments BLADDER SURGERY Medical History Medical History Date Comments History of bladder surgery Dry eye syndrome Hypothyroidism Presbyopia Family History Medical History Relation Name Comments Bone cancer Father Cancer -bone; Prostate cancer Father Cancer -pros benavides; Breast cancer Mother Cancer -breast ; Hypertension Mother Hypertension; Liver cancer Mother Cancer -liver; Cause of : Cancer -liver Relation Name Status Comments Father Mother (Age 72) Social History Tobacco Use Types Packs/Day Years Used Date Smoking Tobacco: Former Smokeless Tobacco: Current Comments:Smoking History Pac ks/day: 2 Packs Alcohol Use Standard Drinks/Week Comments No 0 (1 standard drink = 0.6 oz pur e alcohol) Comments No Sex and Gender Information Value Date Recorded Sex Assigned at Not on file Legal Sex Female 11:34 PM SOCIAL SECURITY ASSESSOR Gender Identity Female 10/13/2019 2:32 PM CDT Sexual Orientation Bisexual 10/13/2019 2: 33 PM CDT Obstetrics History Para Term AB IAB SAB Ectopic Multiple Livin g Live Births 4 1 1 3 3 1 1 Date Outcome GA Total Labor Labor/2nd/3rd Weight Sex Type Anes PTL Rosy A1 A5 Name Clin 1969 SAB Demise 1973 SAB Demise 1979 SAB Demise 1982 Term F Vag-S pont Living Complications:None Comments Daughter several years ago do to heroin. Last Filed Vital Signs Vital Sign Reading [...] 08/23/2021 9:59 AM CDT Plan of Treatment Health Maintenance Due Date Last Done Comments Colon Cancer Screening-Colonoscopy 1950 Depression Screening 1950 Fall Risk Assessment 1950 Hepatitis C Screening 1950 Hepatitis B Screening 1968 Breast Cancer Screening-Mammogram 05/21/2015 05/21/2014, 05/21/2014, 05/07/2013 Osteoporosis Screening-Bone Density Scan 11/03/2021 11/04/2019 Well Visit 65+ 08/23/2022 08/23/2021, 11/17/2019 DTaP/Tdap/Td Vaccine (2 - Td or Tdap) 04/08/2023 04/08/2013, 10/23/2010, 03/02/2002 Influenza Vaccine (#1) 2024 9, 02/10/2018, 03/05/2017, Additional history exists Pneumococcal vaccine 65+ Completed 04/03/2018, 02/17 Zoster Vaccine Completed 05/15/2019, 01/21/2019 Procedures Procedure Name Priority Date/Time Associated Diagnosis Comments DEXA AXIAL SKELETON BONE DENSITY 1 OR MORE SITES Schedule Routine, Read Routine (OP Routine) 11/04/2019 10:21 AM CDT Screening for osteoporosis Postmenopause SCREENING MAMMOGRAM Routine 05/21/2014 1:49 PM SOCIAL SECURITY ASSESSOR from Last 3 Months or Most Recently Relevant to Health Maintenance Results * Dexa Axial Skeleton Bone Density 1 Or 2 Site (11/04/2019 10:21 AM CDT) Anatomical Region Laterality Modality Body N/A Digital RadioInvenraa phy 11/04/2019 10:3 8 AM CDT Impressions [...] by: Nate Pulido M.D. Priscila Lau MD IM DXA PROCEDURES Final Result * Screening Mammogram (05/21/2014 1:49 PM SOCIAL SECURITY ASSESSOR) Anatomical Region Laterality Modality Breast N/A Mammography 05/21/2014 1:49 PM SOCIAL SECURITY ASSESSOR Narrative 05/21/2014 2:23 PM SOCIAL SECURITY ASSESSOR LAISHA NO M.D. FINAL REPORT ACC# Date Time Exam [id number] May 21, 2014 13:49:00 [facility] [address] Screen Dig Brst Niall Bi EXAMINATION: Mammogram Technique: Bilateral Bilateral Full Field Screening Mammography was performed with Tomosynthesis. Views obtained: . Computer Aided Detection was performed with Mobile Media Content, Rue La La 1.3 version 9.3. Mammogram Findings: The present examination has been compared to prior imaging studies performed at [facility] on 05/07/2013, 05/06/2012, 05/01/2011, 04/11/2010 and 03/02/2009. [...] May 21 2014 2:23P Procedure Note Provider, Dileep, - 09/11/2016 LAISHA NO M.D. FINAL REPORT ACC# Date Time Exam [id number] May 21, 2014 13:49:00 [facility] [address] Screen Dig Brst Niall Bi EXAMINATION: Mammogram Technique: Bilateral Bilateral Full Field Screening Mammography was performed with Tomosynthesis. Views obtained: . Computer Aided Detection wasperformed with R2, iPolicy Networksova 1.3 version 9.3. Mammogram Findings: The present examination has been compared to prior imaging studies performed at [facility] on 05/07/2013, 05/06/2012,05/01/2011, 04/11/2010 and 03/02/2009. The [...] NO M.D. on May 21 2014 2:23P us Historical Provider MD IMG MAMMO PROCEDURES Denise l Result from Last 3 Months or Most Recently Relevant to Health Maintenance Insurance MEDICARE [facility] MEDICARE Address: [place] [address] MEDICARE [facility] MEDICARE Address: [address] [place] [id number] [place] [address] Care Teams Hse Specialist Relationship Specialty Start Date End Date Titus House DO PCP - General Internal Medicine 11/16/19
--- OUTSIDE RECORDS SUMMARY | 2024-07-22 14:23 | XMS_ITS | Patient Health Summary ---
Author Organization [facility] [employer] Address [address] [facility] [place] [address] Care Team Providers Care Design Center Consultant Name Role Phone Unavailable Primary Care Provider Unavailabl e Note from [facility],non-owned Affiliates and Associated Physician Practices is amultiple site organization consisting of ambulatory clinics and hospital sitesin [place], [place], [place] and [place]. This disclosure is being madepursuant to the Care Everywhere program and may not contain all information available regarding this patient. Last updated 18.[facility] [employer] Allergies No known active allergies Medications * Be aware that medications may not be up to date on this document. Alwaysverify current medications with the patient. * simvastatin (ZOCOR) 10 MG tablet Take 10 mg by mouth at bedtime. * Kieowvcvsmm-Tnyvrqqva-Qpd C-Mn (GLUCOSAMINE CHONDR 1500 COMPLX) CAPS Take 1 Cap by mouth once daily. * Cholecalciferol (VITAMIN D3) 2000 UNITS TABS Take 2,000 Units by mouth once daily. * celecoxib (CELEBREX) 200 MG capsule Take 200 mg by mouth once daily. * Thiamine HCl (VITAMIN B-1 PO) Take 300 mg by mouth once daily. * Coenzyme Q10 (CO Q 10 PO) Take 150 mg by mouth once daily. * METHYLCOBALAMIN PO Take 10 mg by mouth once daily. * Other Vitamin packet: Take 3 in am and 2 in pm. * oxycodone-acetaminophen (PERCOCET) 5-325 MG tablet(Started 06/05/2012) Take 1 Tab by mouth every 4 hours as needed. Active Problems No known active problems Social [...] Comments Blood Pressure 90/52 06/05/2012 8:05 AM PRODUCT SAFETY SPECIALIST Pulse 65 06/05/2012 8:05 AM PRODUCT SAFETY SPECIALIST Temperature 36.8 C (98.3 F) 06/05/2012 8:05 AM PRODUCT SAFETY SPECIALIST Respiratory Rate 18 06/05/2012 8:05 AM PRODUCT SAFETY SPECIALIST Oxygen Saturation 95% 06/05/2012 8:05 AM PRODUCT SAFETY SPECIALIST Inhaled Oxygen Concentration - - Weight 58.1 kg (128 lb) 06/04/2012 6:00 AM PRODUCT SAFETY SPECIALIST Height 154.9 cm (5' 1 ) 06/04/2012 6:00 AM PRODUCT SAFETY SPECIALIST Body Mass Index 24.19 06/04/2012 6:00 AM PRODUCT SAFETY SPECIALIST Procedures * CARDIAC ECHOCARDIOGRAM COMPLETE ORDER(Performed 06/09/2012) * CARDIAC RHYTHM STRIP ORDER(Performed 06/09/2012) * COLPORRHAPHY ANTERIOR/POSTERIOR REPAIR(Performed 06/04/2012) * URINE MICROSCOPIC ONLY REFLEX TO CULTURE(Performed 06/04/2012) Performed for ERICKA (stress urinary incontinence, female) * URINALYSIS REFLEX MICROSCOPIC REFLEX CULTURE(Performed 06/04/2012) Performed for ERICKA (stress urinary incontinence, female) * BLOOD TYPE VERIFICATION(Performed 06/04/2012) * TYPE + SCREEN PANEL(Performed 06/04/2012) Results * CARDIAC RHYTHM STRIP ORDER (06/09/2012 4:13 PM PRODUCT SAFETY SPECIALIST) Narrative 06/09/2012 4:13 PM PRODUCT SAFETY SPECIALIST Procedure Note Document, Scanned - 06/09/2012 4:13 PM CST Scanned Document CARDIAC SERVICES ORD ERABLES * CARDIAC ECHOCARDIOGRAM COMPLETE ORDER (06/09/2012 4:13 PM PRODUCT SAFETY SPECIALIST) Narrative 06/09/2012 4:13 PM PRODUCT SAFETY SPECIALIST Procedure Note Document, Scanned - 06/09/2012 4:13 PM CST Scanned Document ECHO ORDERABLES * URINALYSIS MICROSCOPIC ONLY W/REFLEX CULTURE (06/04/2012 7:46 AM PRODUCT SAFETY SPECIALIST) RBC UA 2-5 0-2, 2-5 # /hpf 06/04/2012 11:12 AM [facility] WBC UA 0-2 0-2, 2-5 # /hpf 06/04/2012 11:12 AM [facility] Bacteria UA None Seen 06/04/2012 11:12 AM [facility] Epithelial Cell UA 0-2 0-2, 2-5 06/04/2012 11:12 AM [facility] Urine specimen (specimen) URINE SPECIMEN COLLECTION, CATHETERIZED / Unknown 06/04/2012 7:46 AM PRODUCT SAFETY SPECIALIST 06/04/2012 10:46 AM [facility] Oscar Camargo MD LAB - URINALYSIS ORD ERABLES [facility] [address] [place] [address] * (ABNORMAL) URINALYSIS ROUTINE W/REFLEX TO CULTURE (06/04/2012 7:46 AM [facility]) Color UA Yellow Straw, Yellow, Dark Yellow 06/04/2012 11:10 AM [facility] Clarity UA Clear (none) 06/04/2012 11:10 AM [facility] Specific [place] UA 1.010 1.005 - 1.030 06/04/2012 11:10 AM [facility] pH UA 6.0 5.0 - 8.0 06/04/2012 11:10 AM [facility] Protein UA Negative Negative 06/04/2012 11:10 AM [facility] Blood UA 3+(A) Negative 06/04/2012 11:10 AM [facility] Leukocyte UA Negative Negative 06/04/2012 11:10 AM [facility] Nitrite UA Negative Negative 06/04/2012 11:10 AM [facility] Glucose UA Negative Negative 06/04/2012 11:10 AM [facility] Ketone UA Negative Negative 06/04/2012 11:10 AM [facility] Bilirubin UA Negative Negative 06/04/2012 11:10 AM [facility] Urobilinogen UA 0.2 0.1 - 1.0 EU/dL 06/04/2012 11:10 AM [facility] Urine Microscopy Urine microscopy to follow (none) 06/04/2012 11:10 AM [facility] Reflex Status Culture not indicated (none) 06/04/2012 11:10 AM PRODUCT SAFETY SPECIALIST [facility] Urine specimen (specimen) URINE SPECIMEN COLLECTION, CATHETERIZED / Unknown 06/04/2012 7:46 AM PRODUCT SAFETY SPECIALIST 06/04/2012 10:46 AM PRODUCT SAFETY SPECIALIST Oscar Camargo MD LAB - URINALYSIS ORD ERABLES Performing Organization Address City/[facility]/ZIP Co de Phone Number [facility] [address] [place] [address] * BLOOD TYPE VERIFICATION (06/04/2012 6:53 AM PRODUCT SAFETY SPECIALIST) ABO O 06/04/2012 6:53 AM PRODUCT SAFETY SPECIALIST [facility] Rh Type Positive 06/04/2012 6:53 AM PRODUCT SAFETY SPECIALIST [facility] Miscellaneous samples (specimen) BLOOD SPECIMEN / Unknown 06/04/2012 6:51 AM PRODUCT SAFETY SPECIALIST Oscar Camargo MD LAB - BLOOD BANK ORD ERABLES Performing Organization Address [facility] Co de Phone Number [facility] * TYPE + SCREEN PANEL (06/04/2012 5:53 AM PRODUCT SAFETY SPECIALIST) ABO O 06/04/2012 6:50 AM PRODUCT SAFETY SPECIALIST [facility] Rh Type Positive 06/04/2012 6:50 AM PRODUCT SAFETY SPECIALIST [facility] Comment:No historical blood type. Retype required. Antibody Screen Negative 3 6:50 AM PRODUCT SAFETY SPECIALIST [facility] Miscellaneous samples (specimen) BLOOD SPECIMEN / Unknown 06/04/2012 5:53 AM PRODUCT SAFETY SPECIALIST 06/04/2012 6:01 AM PRODUCT SAFETY SPECIALIST Oscar Camargo MD LAB - BLOOD BANK ORD ERABLES [facility]
--- OUTSIDE RECORDS SUMMARY | 2024-07-22 14:23 | XMS_ITS | Encounter Summary ---
Author Organization [facility] Address [address] [place] [address] Care Team Providers Care Casting Finisher Name Role Phone Titus House DO Primary Care Provider Encounter Details Date Type Department Care Team (Late st Contact Info) Description 07/21/2024 External Device Data STL ABSTRACTION Provider, Abstract NO ADDRESS ON FILE Social History Tobacco Use Types Packs/Day Years Used Date Smoking Tobacco: Former Cigarettes 1983 Smokeless Tobacco: Never Alcohol Use Standard Drinks/Week Comments Not Currently 0 (1 standard drink = 0.6 oz pur e alcohol) Comments Unknown Sex and Gender Information Value Date Recorded Sex Assigned at Not on file Legal Sex Female 9:20 AM CDT Gender Identity Not on file Sexual Orientation Not on file documented as of this encounter Plan of Treatment Upcoming Encounters Date Type Department Care Team (Late st Contact Info) Description 07/28/2024 11:30 AM CDT Office Visit [facility] Oncology and Hematology - [place] [address] [facility] [address] [place] [address] Sekou Tenorio MD [address] [facility] [facility] [address] [place] [address] documented as of this encounter Visit Diagnoses Not on filedocumented in this encounter Care Teams Casting Finisher Relationship Specialty Start Date End Date Titus House DO [address] [facility] [address] [place] [address] PCP - General Internal Medicine 12/14/22 documented as of this encounter
--- OUTSIDE RECORDS SUMMARY | 2024-07-22 14:23 | XMS_ITS | Clinical Summary ---
Author Organization [facility] [employer] Address [address] [place] [address] Care Team Providers Care Extended Day Teacher Name Role Phone Unavailable Primary Care Provider Unavailabl e Source Comments [facility] [employer],non-owned Affiliates and Associated Physician Practices is amultiple site organization consisting of ambulatory clinics and hospital sitesin [place], [place], [place] and [place]. This disclosure is being madepursuant to the Care Everywhere program and may not contain all information available regarding this patient. Last updated 18.[facility] [employer] Allergies No known active allergies Medications * [...] Comments Blood Pressure 90/52 06/05/2012 8:05 AM GOLF CART MECHANIC Pulse 65 06/05/2012 8:05 AM GOLF CART MECHANIC Temperature 36.8 C (98.3 F) 06/05/2012 8:05 AM GOLF CART MECHANIC Respiratory Rate 18 06/05/2012 8:05 AM GOLF CART MECHANIC Oxygen Saturation 95% 06/05/2012 8:05 AM GOLF CART MECHANIC Inhaled Oxygen Concentration - - Weight 58.1 kg (128 lb) 06/04/2012 6:00 AM GOLF CART MECHANIC Height 154.9 cm (5' 1 ) 06/04/2012 6:00 AM GOLF CART MECHANIC Body Mass Index 24.19 06/04/2012 6:00 AM GOLF CART MECHANIC Plan of Treatment Health Maintenance Due Date Last Done Comments BONE DENSITY TESTING 1950 COLOGUARD (AGES 45-75) - COL ON CA SCREENING 1950 COLON MONITORING 1950 COLONOSCOPY - COLON CA SCREENING 1950 CT COLONOGRAPHY - COLON CA SCREENING 1950 Colorectal Cancer Screening 1950 FIT - COLON CA SCREENING 1950 FLEX SIG - COLON CA SCREENING 1950 MAMMOGRAM 1950 HEPATITIS C SCREENING 03/24/1968 DTAP/TDAP/TD VACCINES (1 - Tdap) 1969 PNEUMOCOCCAL VACCINE 50+ (1 of 1 - PCV) 2000 ZOSTER VACCINE (1 of 2) 2000 COVID-19 VACCINE ( - 2023-2 5 season) 2024 INFLUENZA VACCINE (#1) 01/19/2024200 9, 02/25/2008 DEPRESSION SCREENING 05/20/2024 MEDICARE AWV CALENDAR YEAR 2024 Respiratory Syncytial Virus (RSV) Vaccine Pt: or over 60 yrs (1 - 1-dose 75+ series) 2025 HEPATITIS B VACCINE Aged Out No longe r eligible based on patient's age to complete this topic HIB VACCINE Aged Out No longer eligi ble based on patient's age to complete this topic HPV VACCINE Aged Out No longer eligi ble based on patient's age to complete this topic MENINGOCOCCAL (Group B) VACCINE Aged Out No longer eligible b ased on patient's age to complete this topic MENINGOCOCCAL VACCINE Aged Out No kush alie eligible based on patient's age to complete this topic Advance Directives * FULL RESUSCITATION (Latest Code Status on File) Date Activated Date Inactivated Comments 06/04/2012 10:53 AM 06/05/2012 2:20 PM * FULL RESUSCITATION Date Activated Date Inactivated Comments 06/04/2012 7:20 AM 06/04/2012 10:53 AM
[2024-07-22 16:42] LABS: Iron 160 ug/dL (37-170)
[2024-07-22 16:45] LABS: Alanine Aminotransferase 33 U/L (6-35); Albumin Level 4.8 g/dL (3.5-5.1); Alkaline Phosphatase 71 U/L (38-126); Anion Gap 8 mmol/L (4-12); Aspartate Amino Transferase 66 U/L (14-36); Bilirubin,Total 0.6 mg/dL (0.2-1.3); Blood Urea Nitrogen 12 mg/dL (7-17); Calcium 10.5 mg/dL (8.4-10.2); Carbon Dioxide 31 mmol/L (22-30); Chloride 101 mmol/L (98-107); Estimated Glomerular Filt Rate > 60; Glucose 89 mg/dL (65-110); Potassium 4.3 mmol/L (3.4-5.0); Sodium 140 mmol/L (137-145)
[2024-07-22 16:52] LABS: Percent Iron Saturation 44 % (20-50)
[2024-07-22 17:51] LABS: Folic Acid > 20.0 ng/mL (2.76->20)
== END 2024-07-22 13:05 | disposition home or self-care (01) ==
LOC: ANHLAB 13:05
PROVIDERS: PCP Internal Medicine; Visit Provider Internal Medicine Hematology & Oncology
DX: D50.9 Iron deficiency anemia, unspecified (principal)
CPT/HCPCS: 36415; 80053; 82607; 82728; 82746; 83540; 83550; 85025

== ENCOUNTER 2024-08-06 07:05 | Outpatient (CLI) | payer MEDICARE, SELFPAY ==
--- NOTE | ~2024-08-06 | US_ITS ---
Abdominal Sonogram: Real-time sonographic imaging of the abdomen was performed. Clinical History: Abnormal LFTs Findings: The liver appears normal with no evidence of mass lesion or bile duct dilatation. Main por toma vein demonstrates normal direction of flow. The spleen is normal in size without evidence of foca l lesion. The gallbladder is well distended, and appears normal with no evidence of gallstone or wal l thickening. The common bile duct measures 5 mm. The visualized pancreas, aorta, and IVC are unrema rkable. The right kidney measures 10.2 cm in length and the left kidney measures 10.4 cm. There is no hydronephrosis or renal calculus. Impression: Unremarkable abdominal ultrasound. Reviewed, dictated and finalized at location . Impression: Unremarkable abdominal ultrasound.
--- OUTSIDE RECORDS SUMMARY | 2024-08-06 07:08 | XMS_ITS | Encounter Summary ---
Author Organization [facility] Address [address] [place] [address] Care Team Providers Care Braider Setter Name Role Phone Titus House DO Primary Care Provider Encounter Details Date Type Department Care Team (Late st Contact Info) Description 08/05/2024 External Device Data STL ABSTRACTION Provider, Abstract [...] Care Team (Late st Contact Info) Description 08/12/2024 4:00 PM CDT Telephone Check Up [facility] Oncology and Hematology [place] [address] [place] [phone] Sekou Tenorio MD [address] [place] [address] 02/10/2025 11:00 AM CDT Office Visit [facility] Oncology and Hematology [place] [address] [place] [address] Sekou Tenorio MD [address] [place] [phone] documented as of this encounter Visit Diagnoses Not on filedocumented in this encounter Care Teams Braider Setter Relationship Specialty Start Date End Date Titus House DO [address] [address] PCP - General Internal Medicine 12/14/22 documented as of this encounter
--- OUTSIDE RECORDS SUMMARY | 2024-08-06 07:08 | XMS_ITS ---
Care Plan - [facility] Created on: August 06, 2024 Dejah Augustine : 1950 Sex: Female Author Organization [facility] Address [address] [address] Phone Care Team Providers Care Dot Net Architect Name Role Phone Dominik RIVERA, Estiven Martinez Unavailable
--- OUTSIDE RECORDS SUMMARY | 2024-08-06 07:08 | XMS_ITS | Clinical Summary ---
Author Organization [facility] Address [address] [address] Phone Care Team Providers Care Antique Finisher Name Role Phone Dominik RIVERA, Estiven Limon [phone] Reason for Visit and Chief Complaint X-ray Hand - Left, 3 views Problems Includes: Problems addressed during this encounter and other active Problems All Visits Onset Date Resolved Date Provider Condition S tatus Trigger Finger of Thumb 06/11/2023 Estiven sexton MD Active Last Documented On 4 1:24PM ; [facility] Plan of Treatment No [...] 4 1:03PM By Margoth Recinos MA ; [facility] Levothyroxine Sodium 25 MCG Oral Capsule 06/11/2023 Provider: Diagnosis: Last Documented On 4 1:04PM By Margoth Recinos MA ; [facility] Celecoxib 200 MG Oral Capsule 06/11/2023 Provider: Diagnosis: Last Documented On 4 1:05PM By Margoth Recinos MA ; [facility] Restasis 0.05% Ophthalmic Emulsion 06/11/2023 Provid er: Diagnosis: Last Documented On 4 1:05PM By Margoth Recinos MA ; [facility] valACYclovir HCl 1 GM Oral Tablet 06/11/2023 Provide r: Diagnosis: Last Documented On 4 1:05PM By Margoth Recinos MA ; [facility] Melatonin 10 MG Oral Capsule 06/11/2023 Provider : Diagnosis: Last Documented On 4 1:06PM By Margoth Recinos MA ; [facility] Advanced Calcium Formula 200 MG Oral Tablet 06/11/2023 Provider: Diagnosis: Last Documented On 4 1:07PM By Margoth Recinos MA ; [facility] ZyrTEC 10 MG Oral Tablet Chewable 06/11/2023 Provide r: Diagnosis: Last Documented On 4 1:07PM By Margoth Recinos MA ; [facility] Medications Administered Includes: Administered Medications from this encounter No Administered Medications Recorded Results Includes: Results discussed during this encounter No Results Recorded For Specified Dates Social History No Social History Recorded - Smoking Status Unknown Procedures and Surgical History Includes: Procedures from this encounter Procedures Code Diagnosis Performing Provider Service Location Service Date Hand - Three Views (Left Side Procedure) 99848 Pain in left hand James Cuevas MD [facility] 06/11/2023 Last Documented On 4 1:21PM ; [facility] Medical History Includes: Medical [...] Dates 1 - [employer] PPO/POS/Select/Op en Access/EPO [id number] Dejah Baptisteer Self 05/27/2023 - Unknown Clinical Notes Includes: Clinical Notes from this encounter No Clinical Notes Recorded
--- OUTSIDE RECORDS SUMMARY | 2024-08-06 07:08 | XMS_ITS | Clinical Summary ---
Author Organization [address] Address [address] [address] Care Team Providers Care Belt Sander Stone Name Role Phone Titus House DO Primary Care Provider [phone] Allergies No known active allergies Medications cholecalciferol [...] on file Legal Sex Female 11:34 PM RESIDENT ASSISTANT CNA Gender Identity Female 10/13/2019 2:32 PM CDT [...] Postmenopause SCREENING MAMMOGRAM Routine 05/21/2014 1:49 PM RESIDENT ASSISTANT CNA from Last 3 Months or Most Recently Relevant to Health Maintenance Results * Dexa Axial Skeleton Bone Density 1 Or 2 Site (11/04/2019 10:21 AM CDT) Anatomical Region Laterality Modality Body N/A Digital [employer] 11/04/2019 10:3 8 AM CDT Impressions [...] Result * Screening Mammogram (05/21/2014 1:49 PM RESIDENT ASSISTANT CNA) Anatomical Region Laterality Modality Breast N/A Mammography 05/21/2014 1:49 PM RESIDENT ASSISTANT CNA Narrative 05/21/2014 2:23 PM RESIDENT ASSISTANT CNA LAISHA NO M.D. FINAL REPORT ACC# Date Time Exam [id number] May 21, 2014 13:49:00 [facility] [address] Screen Dig Brst Niall Bi EXAMINATION: Mammogram Technique: Bilateral Bilateral Full Field Screening Mammography was performed with Tomosynthesis. Views obtained: . Computer Aided Detection was performed with Polar OLED, iCare Intelligence 1.3 version 9.3. Mammogram Findings: The present examination has been compared to prior imaging studies performed at [facility] on 05/07/2013, 05/06/2012, 05/01/2011, 04/11/2010 and 03/02/2009. [...] M.D. FINAL REPORT ACC# Date Time Exam [id number] May 21, 2014 13:49:00 [facility] [address] Screen Dig Brst Niall Bi EXAMINATION: Mammogram Technique: Bilateral Bilateral Full Field Screening Mammography was performed with Tomosynthesis. Views obtained: . Computer Aided Detection wasperformed with Polar OLED, Cenova 1.3 version 9.3. Mammogram Findings: The present examination has been compared to prior imaging studies performed at [facility] on 05/07/2013, 05/06/2012,05/01/2011, 04/11/2010 and 03/02/2009. The [...] Relevant to Health Maintenance Insurance MEDICARE [employer] [facility] MEDICARE Address: [place] [address] MEDICARE [employer] [facility] MEDICARE Address: [place] [address] Care Teams Belt Sander Stone Relationship Specialty Start Date End Date Titus House DO PCP - General Internal Medicine 11/16/19
--- OUTSIDE RECORDS SUMMARY | 2024-08-06 07:08 | XMS_ITS | Referral Summary ---
Author Organization [address] Address [address] [place] [address] Care Team Providers Care Furnace Operator Name Role Phone Titus House DO Primary Care Provider [phone] Allergies No known active allergies Medications cholecalciferol [...] on file Legal Sex Female 11:34 PM CRYOLITE RECOVERY OPERATOR Gender Identity Female 10/13/2019 2:32 PM CDT [...] Postmenopause SCREENING MAMMOGRAM Routine 05/21/2014 1:49 PM CRYOLITE RECOVERY OPERATOR from Last 3 Months or Most Recently [...] Result * Screening Mammogram (05/21/2014 1:49 PM CRYOLITE RECOVERY OPERATOR) Anatomical Region Laterality Modality Breast N/A Mammography 05/21/2014 1:49 PM CRYOLITE RECOVERY OPERATOR Narrative 05/21/2014 2:23 PM CRYOLITE RECOVERY OPERATOR LAISHA NO M.D. FINAL REPORT ACC# Date Time Exam [id number] May 21, 2014 13:49:00 [facility] [address] Screen Dig Brst Niall Bi EXAMINATION: Mammogram Technique: Bilateral Bilateral Full Field Screening Mammography was performed with Tomosynthesis. Views obtained: . Computer Aided Detection was performed with Cognii.3 version 9.3. Mammogram Findings: The present examination has been compared to prior imaging studies performed at [facility] on 05/07/2013, 05/06/2012, 05/01/2011, 04/11/2010 and 03/02/2009. [...] M.D. FINAL REPORT ACC# Date Time Exam [id number] May 21, 2014 13:49:00 [facility] [address] Screen Dig Brst Niall Bi EXAMINATION: Mammogram Technique: Bilateral Bilateral Full Field Screening Mammography was performed with Tomosynthesis. Views obtained: . Computer Aided Detection wasperformed with Climeworks 1.3 version 9.3. Mammogram Findings: The present examination has been compared to prior imaging studies performed at [facility] on 05/07/2013, 05/06/2012,05/01/2011, 04/11/2010 and 03/02/2009. The [...] to Health Maintenance Insurance MEDICARE [facility] MEDICARE Address: [place] [id number] [place] [address] MEDICARE [facility] MEDIC[facility] Address: [facility] [address] [place] [address] Care Teams Furnace Operator Relationship Specialty Start Date End Date Titus House DO PCP - General Internal Medicine 11/16/19
--- OUTSIDE RECORDS SUMMARY | 2024-08-06 07:09 | XMS_ITS ---
Author Organization [facility] Address [address] [address] Phone Care Team Providers Care Volunteer Firefighter Name Role Phone Dominik RIVERA, Estiven Limon [phone] Problems Includes: Active, inactive, and resolved Problems All Visits Onset Date Resolved Date Provider Condition S tatus Trigger Finger of Thumb 06/11/2023 Estiven sexton MD Active Last Documented On 4 1:24PM ; [facility] Plan of Treatment No [...] 4 1:05PM By Margoth Recinos MA ; [facility] Restasis 0.05% Ophthalmic Emulsion 06/11/2023 Provid er: Diagnosis: Last Documented On 4 1:05PM By Margoth Recinos MA ; [facility] valACYclovir HCl 1 GM Oral [...] Administered Medications Recorded Results Includes: Results from 08/06/2021 through 08/06/2024 No Results Recorded For Specified Dates Social History Description Last Updated Former smoker 06/11/2023 Last Documented On 4 1:37PM ; 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 06/11/2023 Last Documented On 4 4:55PM ; [facility] Tendon Injection(s) Lig / Sheath (Left Hand, Thumb) 52023 Trigger thumb, left thumb Estiven Lehman MD [facility]oped[facility] 06/11/2023 Last Documented On 4 4:55PM ; [facility] Hand - Three Views (Left Side Procedure) 30909 Pain in left hand James Cuevas MD [facility] Imaging [facility] 06/11/2023 Last Documented On 4 1:21PM ; [facility] Surgical History Last Updated History of cataract surgery 06/11/2023 Last Documented On 4 1:37PM ; [facility] History of decompression of median nerve at carpal tunnel 06/11/2023 Last Documented On 4 1:37PM ; [facility] Medical History Includes: Medical History in patient's chart Description Last Updated History of arthritis 06/11/2023 Last Documented On 4 1:37PM ; [facility] History of pure hypercholesterolemia Last Documented On 4 1:37PM ; [facility] Family History Includes: Family History [...] No Known Allergies Encounters Includes: Encounters from 08/06/2021 through 08/06/2024 Encounter Provider Location Date Check-In Time Check-Out [...] Dates 1 - [employer] PPO/POS/Select/Op en Access/EPO [id number] Dejah Augustine Self 05/27/2023 - Unknown Clinical Notes Includes: Signed Clinical Notes starting from 12/28/2022 * Progress note Date Encounter Last Documented by 06/11/2023 New Patient/Consult Last documen julianne on 06/11/2023; 1:37 PM, Estiven Lehman MD; [facility] Chief Complaint Left Hand [...] primary care physician Dr. 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 Left thumb trigger 2. UTI treated urgent care here in [place] with cultures positive for Proteus mirabilis sensitive [...] surgery but he is headed back to [place] in the end of June Regarding her [...] definitely seek out medical care with a equity structurer I will check her back in approximately [...] History Tobacco use: Former smoker. 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 Plan StartCited - Other Bactrim DS 800-160 MG tablet 1 every 12 hours, 10 days, 0 refills EndCited Care Team - Estiven Lehman MD - Orthopaedic Surgery Health Reminders - Assess Tobacco Use satisfied 06/11/2023.
--- OUTSIDE RECORDS SUMMARY | 2024-08-06 07:09 | XMS_ITS | Clinical Summary ---
Author Organization [facility] Address [address] [address] Phone Care Team Providers Care Manager Story Name Role Phone Dominik RIVERA, Estiven Limon [phone] Reason for Visit and Chief Complaint Order Request - non billable encounter Problems Includes: Problems addressed during this encounter and other active Problems All Visits Onset Date Resolved Date Provider Condition S tatus Trigger Finger of Thumb 06/11/2023 Estiven sexton MD Active Last Documented On 4 1:24PM ; [facility] Plan of Treatment No Plan [...] 4 1:03PM By Margoth Recinos MA ; [facility] Levothyroxine Sodium 25 MCG Oral Capsule 06/11/2023 Provider: Diagnosis: Last Documented On 4 1:04PM By Margoth Recinos MA ; [facility] Celecoxib 200 MG Oral Capsule 06/11/2023 Provider: Diagnosis: Last Documented On 4 1:05PM By Margoth Recinos MA ; [facility] Restasis 0.05% Ophthalmic Emulsion 06/11/2023 Provid er: Diagnosis: Last Documented On 4 1:05PM By Margoth Recinos MA ; [facility] valACYclovir HCl 1 GM Oral Tablet 06/11/2023 Provide r: Diagnosis: Last Documented On 4 1:05PM By Margoth Recinos MA ; [facility] Melatonin 10 MG Oral Capsule 06/11/2023 Provider : Diagnosis: Last Documented On 4 1:06PM By Margoth Recinos MA ; [facility] Advanced Calcium Formula 200 MG Oral Tablet 06/11/2023 Provider: Diagnosis: Last Documented On 4 1:07PM By Margoth Recinos MA ; [facility] ZyrTEC 10 MG Oral Tablet Chewable 06/11/2023 Provide r: Diagnosis: Last Documented On 4 1:07PM By Margoth Recinos MA ; [facility] Medications Administered Includes: Administered Medications [...] Dates 1 - [employer] PPO/POS/Select/Op en Access/EPO [id number] Dejah Siu 05/27/2023 - Unknown Clinical Notes Includes: Clinical Notes from this encounter No Clinical Notes Recorded
--- OUTSIDE RECORDS SUMMARY | 2024-08-06 07:09 | XMS_ITS | Clinical Summary ---
Author Organization [facility] Address [address] [place] [address] Care Team Providers Care Prorate Clerk Name Role Phone Titus House DO Primary [...] Encounters Date Type Department Care Team Description 08/05/2024 External Device Data STL ABSTRACTION Provider, Abstract 07/28/2024 11:30 AM CDT Office Visit [facility] Oncology and Hematology - [place] [address] [place] [address] Sekou Tenorio MD Elevated LFTs (Primary Dx); Iron deficiency anemia, unspecified iron deficiency anemia type 07/25/2024 External Device Data STL ABSTRACTION Provider, Abstract 07/24/2024 External Device Data STL ABSTRACTION Provider, Abstract 07/23/2024 Orders Only [facility] Oncology and Hematology [place] [address] [place] [phone] Sekou Tenorio MD 07/21/2024 External Device Data STL ABSTRACTION Provider, Abstract 07/13/2024 Orders Only [facility] Oncology and Hematology - [place] [address] [place] [phone] Sekou Tenorio MD Iron deficiency anemia, [...] Tobacco: Former Cigarettes 1983 Smokeless Tobacco: Never Tobacco Cessation:Counseling Given: [...] Sign Reading Time Taken Comments Blood Pressure 119/81 07/28/2024 11:17 AM CDT Pulse 71 07/28/2024 11:17 AM CDT Temperature 35.6 C (96 F) 07/28/2024 11:17 AM CDT Respiratory Rate 16 07/28/2024 11:1 7 AM CDT Oxygen Saturation 97% 07/28/2024 11: 17 AM CDT Inhaled Oxygen Concentration - - Weight 61.1 kg (134 lb 12.8 oz) 025 11:17 AM CDT Height 154.9 cm (5' 1 ) 03/26/2023 3:28 PM AERIAL PHOTOGRAPHER Body Mass Index 25.47 03/26/2023 3:28 PM AERIAL PHOTOGRAPHER Plan of Treatment Upcoming Encounters Date Type Department Care Team (Late st Contact Info) Description 08/12/2024 4:00 PM CDT Telephone Check Up [facility] Oncology and Hematology - [place] [address] [place] [address] Sekou Tenorio MD [address] [facility] [address] [place] [address] 02/10/2025 11:00 AM CDT Office Visit [facility] Oncology and Hematology [facility] [address] [place] [phone] Sekou Tenorio MD [address] [place] [address] Health Maintenance Due Date Last Done Comments COLORECTAL SCREENING 1995 Colorectal Cancer Screening 1995 FIT-DNA Q 3 years 1995 FIT/FOBT Q 1 year 1995 Flex Sig/CT Colonography Q 5 years 1995 BREAST CANCER SCREENING 05/21/2015 05/21/19 15, 05/21/2014, 05/07/2013 DTAP/TDAP/TD VACCINES (2 - T d or Tdap) 04/08/2023 04/08/2013 INFLUENZA VACCINE (#1) 2023 9, 02/10/2018, 03/05/2017, Additional history exists [place] Preventative Visit/Annual Wellness Visit 05/20/2024 08/23/2021, 11/17/2019 RSV VACCINE (60+ or ) (1 - 1-dose 75+ series) 2025 PNEUMOCOCCAL VACCINE 50+ YEARS Completed 04/03/2018 , 03/05/2017 ZOSTER VACCINE Completed 05/15/2019, 01/21/2019 OSTEOPOROSIS SCREENING Completed 11/04/2019, 2019 Procedures Procedure Name Priority Date/Time Associated Diagnosis Comments CBC WITH AUTODIFFERENTIAL Routine 2024 1:56 PM AERIAL PHOTOGRAPHER COMPREHENSIVE METABOLIC PANEL Routine 07/22/2024 1:42 PM AERIAL PHOTOGRAPHER from Last 3 Months Results * CBC WITH AUTODIFFERENTIAL (07/22/2024 1:56 PM AERIAL PHOTOGRAPHER) Blood Sekou Tenorio MD HEMATOLOGY ORDERABLES Final Res ult * COMPREHENSIVE METABOLIC PANEL (07/22/2024 1:42 PM AERIAL PHOTOGRAPHER) Blood Sekou Tenorio MD CHEMISTRY ORDERABLES Final Resu lt from Last 3 Months Insurance [employer] PPO MCR Care Teams Prorate Clerk Relationship Specialty Start Date End Date Titus House DO [address] [facility] [address] [place] [address] PCP - General Internal Medicine 12/14/22
--- OUTSIDE RECORDS SUMMARY | 2024-08-06 07:09 | XMS_ITS | Clinical Summary ---
Author Organization [facility] [employer] Address [address] [place] [address] Care Team Providers Care Credit Collections Analyst Name Role Phone Unavailable Primary Care Provider Unavailabl e Source Comments [facility] [employer],non-owned Affiliates and Associated Physician Practices is amultiple site organization consisting of ambulatory clinics and hospital sitesin [place], [place], [place] and [place]. This disclosure is being madepursuant to the Care Everywhere program and may not contain all information available regarding this patient. Last updated 18.[facility] [employer] Allergies No known active allergies Medications * [...] Comments Blood Pressure 90/52 06/05/2012 8:05 AM CERTIFIED BREASTFEEDING EDUCATOR Pulse 65 06/05/2012 8:05 AM CERTIFIED BREASTFEEDING EDUCATOR Temperature 36.8 C (98.3 F) 06/05/2012 8:05 AM CERTIFIED BREASTFEEDING EDUCATOR Respiratory Rate 18 06/05/2012 8:05 AM CERTIFIED BREASTFEEDING EDUCATOR Oxygen Saturation 95% 06/05/2012 8:05 AM CERTIFIED BREASTFEEDING EDUCATOR Inhaled Oxygen Concentration - - Weight 58.1 kg (128 lb) 06/04/2012 6:00 AM CERTIFIED BREASTFEEDING EDUCATOR Height 154.9 cm (5' 1 ) 06/04/2012 6:00 AM CERTIFIED BREASTFEEDING EDUCATOR Body Mass Index 24.19 06/04/2012 6:00 AM CERTIFIED BREASTFEEDING EDUCATOR Plan of Treatment Health Maintenance Due Date [...] complete this topic MENINGOCOCCAL (Group B) VACCINE SHARED DECISION-MAKING Aged Out No longer eligible based on patient's age to complete this topic MENINGOCOCCAL GROUPS A/C/Y/W VACCINE Aged Out No longer eligible b ased on patient's age to complete this topic Advance Directives * FULL RESUSCITATION (Latest Code Status on File) Date Activated Date Inactivated Comments 06/04/2012 10:53 AM 06/05/2012 2:20 PM * FULL RESUSCITATION Date Activated Date Inactivated Comments 06/04/2012 7:20 AM 06/04/2012 10:53 AM
--- OUTSIDE RECORDS SUMMARY | 2024-08-06 07:09 | XMS_ITS | Clinical Summary ---
Author Organization [facility] Address [address] [address] Phone Care Team Providers Care Pensions Retirement Plan Specialist Name Role Phone Estiven Lehman MD [phone] Reason for Visit and Chief Complaint New Patient/Consult Problems Includes: Problems addressed during this encounter and other active Problems Current Visit Onset Date Resolved Date Provider Brittani collazo Status Trigger Finger of Thumb 06/11/2023 Estiven sexton MD Active Last Documented On 1:24PM ; [facility] Plan of Treatment No [...] refills Diagnosis: 1 every 12 hours Pharmacy: [address], [address] - Last Documented On 4 1:37PM By Estiven Lehman MD ; [facility] Current Medications (continue as prescribed) Atorvastatin Calcium 10 MG Oral Tablet 06/11/2023 Pr ovider: Diagnosis: Last Documented On 4 1:03PM By Margoth Recinos MA ; [facility] Levothyroxine Sodium 25 MCG Oral Capsule 06/11/2023 Provider: Diagnosis: Last Documented On 4 1:04PM By Margoth Recinos MA ; [facility] Celecoxib 200 MG Oral Capsule 06/11/2023 Provider: Diagnosis: Last Documented On 4 1:05PM By Margoth Recinos MA ; [facility] Restasis 0.05% Ophthalmic Emulsion 06/11/2023 Provid er: Diagnosis: Last Documented On 4 1:05PM By Margoth Recinos MA ; [facility] valACYclovir HCl 1 GM Oral Tablet 06/11/2023 Provide r: Diagnosis: Last Documented On 4 1:05PM By Margoth Recinos MA ; [facility] Melatonin 10 MG Oral Capsule 06/11/2023 Provider : Diagnosis: Last Documented On 4 1:06PM By Margoth Recinos MA ; [facility] Advanced Calcium Formula 200 MG Oral Tablet 06/11/2023 Provider: Diagnosis: Last Documented On 4 1:07PM By Margoth Recinos MA ; [facility] ZyrTEC 10 MG Oral Tablet Chewable 06/11/2023 Provide r: Diagnosis: Last Documented On 4 1:07PM By Margoth Recinos MA ; [facility] Medications Administered Includes: Administered Medications from this encounter No Administered Medications Recorded Results Includes: Results discussed during this encounter No Results Recorded For Specified Dates Social History Description Last Updated Former smoker 06/11/2023 Last Documented On 4 1:37PM ; [facility] 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 06/11/2023 Last Documented On 4 1:37PM ; [facility] Smoking Status Unknown Procedures and Surgical History Includes: Procedures from this encounter Procedures Code Diagnosis Performing Provider Service Location Service Date Tendon Injection(s) Lig / Sheath (Left Hand, Thumb) Trigger thumb, left thumb Estiven Lehman MD [facility] [facility] 06/11/2023 Last Documented On 4 4:55PM ; [facility] Celestone P/ 3 Mg [id number] Trigger thumb, left thumb Estiven Lehman MD [facility] [place] [facility] 06/11/2023 Last Documented On 4 4:55PM ; [facility] Surgical History Last Updated History [...] Diagnosis New Patient/Consul t Estiven Lehman MD [facility] [place] [facility] 06/11/19 24 1:15PM 1:37PM Insurance Includes: Active Insurance Policies Plan Name Member ID Group # Subscriber Relationship Effect carlos Dates 1 - [employer] PPO/POS/Select/Op en Access/EPO [id number] Dejah Augustine Self 05/27/2023 - Unknown Clinical Notes Includes: Clinical Notes from this encounter * Progress note Date Encounter Last Documented by 06/11/2023 New Patient/Consult Last documen julianne on 06/11/2023; 1:37 PM, Estiven Lehman MD; [facility] Chief Complaint Left Hand [...] primary care physician Dr. 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 Left thumb trigger 2. UTI treated urgent care here in [place] with cultures positive for Proteus mirabilis sensitive [...] definitely seek out medical care with a burlap worker I will check her back in approximately [...] History Tobacco use: Former smoker. 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 Plan StartCited - Other Bactrim DS 800-160 MG tablet 1 every 12 hours, 10 days, 0 refills EndCited Care Team - Estiven Lehman MD - Orthopaedic Surgery Health Reminders - Assess Tobacco Use satisfied 06/11/2023.
== END 2024-08-06 07:06 | disposition home or self-care (01) ==
PROVIDERS: PCP Internal Medicine; Visit Provider Internal Medicine Hematology & Oncology
DX: R79.89 Other specified abnormal findings of blood chemistry (principal)
CPT/HCPCS: 76700

== ENCOUNTER 2024-11-30 09:22 | Outpatient (CLI) | payer MEDICARE, SELFPAY ==
--- OUTSIDE RECORDS SUMMARY | 2024-11-30 09:28 | XMS_ITS | Clinical Summary ---
Author Organization [address] Address [address] [place] [id number] Care Team Providers Care Cotton Seed Culler Name Role Phone Titus House DO Primary Care Provider [phone] Allergies No known active allergies Medications cholecalciferol [...] on file Legal Sex Female 11:34 PM MARKETING STRATEGIST Gender Identity Female 10/13/2019 2:32 PM CDT [...] A M CDT Height 154.9 cm (5' 1) 08/23/2021 9:59 AM CDT Body Mass Index 27.13 08/23/2021 9:59 AM CDT Plan of Treatment Not on file Insurance [facility] Address: [address] [address] [facility] MEDICARE ADVANTAGE [facility] Address: [facility] [address] [place] [address] Care Teams Cotton Seed Culler Relationship Specialty Start Date End Date Titus House DO PCP - General Internal Medicine 11/16/19
--- OUTSIDE RECORDS SUMMARY | 2024-11-30 09:28 | XMS_ITS | Clinical Summary ---
Author Organization [facility] Address [address] [facility] [place] [address] Care Team Providers Care Endoscopy Registered Nurse Name Role Phone Unavailable Primary Care Provider Unavailabl e Source Comments [facility],non-owned Affiliates and Associated Physician Practices is amultiple site organization consisting of ambulatory clinics and hospital sitesin [place], [place], [place] and [place]. This disclosure is being madepursuant to the Care Everywhere program and may not contain all information available regarding this patient. Last updated 18.[facility] Allergies No known active allergies Medications * Be aware that medications may not be up to date on this document. Alwaysverify current medications with the patient. simvastatin (ZOCOR) 10 MG tablet Take 10 mg by mouth at bedtime. Active Glucosamine-Cho ndroit-Vit C-Mn (GLUCOSAMINE CHONDR 1500 COMPLX) CAPS Take [...] in am and 2 in pm. 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 Gender Identity Not on file Sexual Orientation Not on file Last Filed Vital Signs Vital Sign Reading Time Taken Comments Blood Pressure 90/52 06/05/2012 8:05 AM LAND DEVELOPMENT MANAGER Pulse 65 06/05/2012 8:05 AM LAND DEVELOPMENT MANAGER Temperature 36.8 C (98.3 F) 06/05/2012 8:05 AM LAND DEVELOPMENT MANAGER Respiratory Rate 18 06/05/2012 8:05 AM LAND DEVELOPMENT MANAGER Oxygen Saturation 95% 06/05/2012 8:05 AM LAND DEVELOPMENT MANAGER Inhaled Oxygen Concentration - - Weight 58.1 kg (128 lb) 06/04/2012 6:00 AM LAND DEVELOPMENT MANAGER Height 154.9 cm (5' 1) 06/04/2012 6:00 AM LAND DEVELOPMENT MANAGER Body Mass Index 24.19 06/04/2012 6:00 AM LAND DEVELOPMENT MANAGER Plan of Treatment Health Maintenance Due Date [...] VACCINE (1 of 2) 2000 COVID-19 VACCINE (1 - 2023-2 5 season) 2024 DEPRESSION SCREENING 05/20/2024 INFLUENZA VACCINE (#1) 2025 , 02/25/2008 Respiratory Syncytial Virus (RSV) Vaccine Pt: or [...] on patient's age to complete this topic Insurance [employer] MANAGED MEDICARE ADV Advance Directives * FULL RESUSCITATION (Latest Code Status on File) Date Activated Date Inactivated Comments 06/04/2012 10:53 AM 06/05/2012 2:20 PM * FULL RESUSCITATION Date Activated Date Inactivated Comments 06/04/2012 7:20 AM 06/04/2012 10:53 AM
--- OUTSIDE RECORDS SUMMARY | 2024-11-30 09:28 | XMS_ITS | Referral Summary ---
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
--- OUTSIDE RECORDS SUMMARY | 2024-11-30 09:28 | XMS_ITS | Clinical Summary ---
Author Organization [facility] Address [address] [place] [address] Care Team Providers Care Serology Teacher Name Role Phone Titus House DO Primary [...] Encounters Date Type Department Care Team Description 11/10/2024 External Device Data STL ABSTRACTION Provider, Abstract 11/03/2024 External Device Data ST[facility] ABSTRACTION Provider, Abstract 10/13/2024 External Device Data ST[facility] ABSTRACTION Provider, Abstract 10/08/2024 External Device Data STL ABSTRACTION Provider, Abstract 10/07/2024 External Device Data STL ABSTRACTION Provider, Abstract 10/07/2024 External Device Data STL ABSTRACTION Provider, Abstract 10/06/2024 External Device Data STL ABSTRACTION Provider, Abstract from Last 3 Months Family History Medical History Relation Name Comments Heart Disease Father Testicular Cancer Father Breast Cancer Mother Relation Name Status Comments Brother Alive Father Mother Sister 1 Alive Sister 2 Alive Social History Tobacco Use Types Packs/Day Years Used Date Smoking Tobacco: Former Cigarettes 1 1983 Smokeless Tobacco: Never Tobacco Cessation:Counseling Given: [...] 11:17 AM CDT Height 154.9 cm (5' 1) 03/26/2023 3:28 PM DIAGRAMMER AND SEAMER Body Mass Index 25.47 03/26/2023 3:28 PM DIAGRAMMER AND SEAMER Plan of Treatment Upcoming Encounters Date Type Department Care Team (Late st Contact Info) Description 02/10/2025 11:00 AM CDT Office Visit [facility] [place] [address] [facility] [address] [place] [address] Sekou Tenorio MD [address] [facility] [address] [place] [address] Health Maintenance Due Date Last Done Comments COLORECTAL SCREENING 1995 Colorectal Cancer Screening 1995 FIT-DNA Q 3 years 1995 FIT/FOBT Q 1 year 1995 Flex Sig/CT Colonography Q 5 years 1995 BREAST CANCER SCREENING 05/21/2015 05/21/19 15, 05/21/2014, 05/07/2013 DTAP/TDAP/TD VACCINES (2 - T d or Tdap) 04/08/2023 04/08/2013 OSTEOPOROSIS SCREENING 11/03/2024 11/04/2019, 2019 INFLUENZA VACCINE (#1) 2024 9, 02/10/2018, 03/05/2017, Additional history exists RSV VACCINE (60+ or ) (1 - 1-dose 75+ series) 2025 PNEUMOCOCCAL VACCINE 50+ YEARS Completed 04/03/2018 , 03/05/2017 ZOSTER VACCINE Completed 05/15/2019, 01/21/2019 Insurance [employer] PPO [facility] Care Teams Serology Teacher Relationship Specialty Start Date End Date Titus House DO [address] [facility] [address] [place] [address] PCP - General Internal Medicine 12/14/22
--- NOTE | 2024-12-27 15:49 | P.SLEEP_ITS ---
Sleep Study Date of Study: 11/30/24 Ordering Provider: Tejal Turcios MD Interpreting Physician: Marie Farrell DO Sleep Study Type: Polysomnogram Height: 1.57 m Weight: 58.967 kg Body Mass Index: 23.8 Neck Circumference (inches): 14.5 [place]: 3 Reason for Sleep Study Previously diagnosed with ROSSY in October 2022. Having difficulty tolerating CPAP. Sleep History The patient is a 74-year-old female who had a sleep study ordered by her director of product management for re-evaluation of sleep apnea. The patient occasionally awakens from sleep short of breath. She occasionally awakens at night with heartburn, belching, or cough. She frequently snores, and it is frequently loud enough that others complain. She occasionally wakes up gasping for air throughout the night. She occasionally sweats excessively at night. She denies falling asleep during the day and while driving. She denies having trouble at school or work due to sleepiness. She denies sleep paralysis. She occasionally experiences vivid dreamlike scenes upon awakening or falling asleep. She occasionally feels afraid of going to sleep. She rarely has nightmares. She constantly remembers her dreams. She frequently has thoughts racing through her mind. She denies feeling sad, depressed, or anxious. She occasionally has muscular tension. She frequently notices parts of her body jerk. She occasionally kicks during the night. She occasionally has crawling and aching feelings in her legs and occasionally has leg pain during the night. She denies awakening in the morning with jaw pain. She is frequently bothered by pain during the day and frequently awakened by pain during the night. She frequently wakes up feeling stiff in the morning. She frequently wakes up with sore or aching muscles. She frequently wakes up with pain in the neck, spine, and other joints. She goes to bed at 10:30 p.m. every night. It takes her 30 minutes up to 2 hours to fall asleep. She wakes up 1 to 2 times throughout the night to urinate and she is able to fall back asleep within a few minutes. She wakes up between 8:30 to 9 a.m. on both weekdays and weekends. She typically gets 7.5 to 8.5 hours of sleep per night. She will stay in bed for 5 to 10 minutes after waking up in the morning. She currently lives with her . She denies consuming any caffeinated beverages within 2 hours of bedtime. She denies reading before falling asleep. She will watch television before falling asleep. She denies taking naps in the afternoon or the evening. She consumes 1-2 cups of a caffeinated beverage per day. She quit smoking cigarettes 40 years ago. She quit consuming alcohol in 2009. She has not used recreational drugs since the . [facility] Past Medical History Medical History Restless legs syndrome (RLS) Erythrocytosis Dietary iron deficiency without anemia Obstructive sleep apnea ROSSY (obstructive sleep apnea) CPAP [place] Vitamin D deficiency Osteoarthritis Presence of tooth-root and mandibular implants Bilateral cataracts Hyperlipidemia Hypothyroidism Surgical History Surgical History H/O excision of mass 07/07/20 Left posterior shoulder mass measuring 2x1 cm, Right lateral chest wall mass measuring 12x7 cm History of bladder suspension procedure Status post carpal tunnel release Family History Family History Sibling Hypertension Diabetes mellitus Father Bone cancer Mother Liver cancer Social History Social History Social History: caffeine-coffee 2-3 cups daily Smoking packs per day: 2 Smoking cigarettes per day: 40.0 Years smoked: 17 Smoking pack-years: 34.00 Smoking status: Former smoker Tobacco type: cigarettes Second hand tobacco smoke exposure: Yes Smoking end date: 05/20/83 Additional smoking assessment comments: QUIT 1983 Alcohol intake: former Substance use: never Substance use type: does not use Do You Feel Safe in your Home?: Yes Lack of Transportation: No Lack of Food: Never True Current Housing: I Have Housing Concerned About Future Housing: No Difficulty Paying Gas/Electric Bills: No Difficulty Paying for Meds: No Currently Unemployed: No Education: Master's Degree or Higher Difficulty w/ Childcare or Family Care: No Living arrangements: with family Occupation/Education: retired Spiritual care concerns: No Medications Home Medications ?Medication ?Instructions ?Recorded ?Confirmed ?Type cyclosporine 0.05 % eye drops in a 1 drp EACH EYE Q12H 09/14/22 11/25/24 History dropperette (Restasis) CPAP machine #1 ea 12/04/22 11/25/24 Rx turmeric 400 mg capsule 400 mg PO DAILY 09/30/23 11/25/24 History vitamin B complex 1 cap PO DAILY 09/30/23 11/25/24 History valacyclovir 1 gram tablet 2,000 mg (2 x 1 gram) PO Q12H PRN 01/23/24 11/25/24 Rx Cold sores #4 tabs atorvastatin 10 mg tablet See Rx Instructions .Route 09/16/24 11/25/24 Rx .COMPLEX #90 tabs levothyroxine 25 mcg tablet See Rx Instructions .Route 09/16/24 11/25/24 Rx .COMPLEX #90 tabs multivitamin 1 tablet PO DAILY 10/15/24 11/25/24 History aspirin 81 mg tablet,delayed 81 mg PO DAILY 10/19/24 11/25/24 History release celecoxib 200 mg capsule (Celebrex) 200 mg PO .prn PRN Pain 10/19/24 11/25/24 History doxepin 3 mg tablet (Silenor) 3 mg PO QHS PRN sleep 1 month #30 10/19/24 11/25/24 Rx tabs levocetirizine 5 mg tablet (Xyzal) 5 mg PO DAILY 11/25/24 11/25/24 History Sleep Procedure A full night polysomnogram using the [employer] multi-channel system r ecorded the standard physiologic parameters including EEG, EOG, submentalis EMG, anterior tibialis EMG, EKG, body position, nasal and oral airflow using nasal pressure sensor and thermistor.? Respiratory parameters of chest and abdominal movements were recorded with Respiratory Inductance Plethysmography belts. Oxygen saturation was recorded by pulse oximetry. Video monitoring was also performed. Sleep stages, periodic limb movements, and EEG arousals were scored in 30 second epochs according to the criteria of the AASM Scoring Manual. The Apnea-Hypopnea Index was calculated using CMS guidelines for definition of hypopnea with 4% O2 desaturations while scoring respiratory events. Sleep Architecture The total recording time was 413.4 minutes.? The total sleep time was 329.0 minutes. Sleep latency was 6.3 minutes. REM latency was 272.0 minutes. Sleep efficiency was 79.6%. The patient had 33 awakenings for an awakening index of 6.0. Wake after sleep onset time was 78.0 minutes. The patient spent 51.5 minutes, 15.7% of total sleep time in Stage N1. The patient spent 232.5 minutes, 70.7% in Stage N2. The patient spent 15.5 minutes, 4.7% in Stage N3. The patient spent 29.5 minutes, 9.0% in Stage REM sleep. Respiratory Analysis The patient had 71 hypopneas, 202 obstructive apneas and 2 central apneas for an overall Apnea Hypopnea Index of 50.2. The REM Apnea Hypopnea Index was 77.3. The NREM Apnea Hypopnea Index was 47.7. The patient had a Central Apnea Hypopnea Index of 0.5. There was no evidence of Parker-Ramos Respirations. Arousals There were 439 total arousals for an arousal index of 80.1. There were 106 spontaneous arousals for an index of 19.3. There were 107 arousals due to respiratory events for an index of 19.5. There were 210 arousals due to periodic limb movements for an index of 38.3.? There were 16 arousals due to isolated limb movements for an index of 2.9. Periodic Limb Movements The patient had 24 isolated limb movements with an index of 4.4. The patient had 287 periodic limb movements with an index of 52.3, which is elevated (normal < 15). Patient had a total of 311 limb movements with a total limb movement index of 56.7. Oximetry Data The patient had an average oxygen saturation of 91.9% in sleep with a minimum oxygen saturation of 81.0% and a maximum oxygen saturation of 97.0%. The patient had 226 oxygen desaturations that were 4% or greater resulting in an Oxygen Desaturation Index of 41.2.? The patient spent 21.4 minutes, 5.2% of total sleep time with an oxygen saturation below 88%. Snoring Profile Mild to moderate snoring was present throughout the study. Cardiac Profile The EKG showed normal sinus rhythm with rare PVCs.The patient had an average pulse rate of 57.9 bpm with a minimum pulse of rate of 47.0 bpm and a maximum pulse rate of 81.0 bpm.? EEG Profile No signs of seizure activity seen. Assessment and Plan Assessment and Plan (1) ROSSY (obstructive sleep apnea): Code(s): G47.33 - Obstructive sleep apnea (adult) (pediatric) Status: Acute Assessment and Plan: The patient had an overall AHI of 50.2 with desaturation down to 81%. This is consistent with severe sleep apnea.I recommend that the patient have a CPAP Titration study with the use of a hypnotic to ensure we obtain enough sleep data and find an optimal pressure setting. (2) PLMD (periodic limb movement disorder): Code(s): G47.61 - Periodic limb movement disorder Status: Acute Assessment and Plan: The patient had a significant number of limb movements during the study with the majority being periodic in nature. Over 60% of the periodic limb movements caused arousals in the patient's sleep. The patient's sleep history is somewhat suggestive of Restless Leg Syndrome. I recommend that the patient have a serum ferritin drawn for evaluation of iron deficiency anemia. If the patient has a serum ferritin less than 75 ng/mL, I recommend starting a daily iron supplement and a Vitamin C supplement for better absorption. If the serum ferritin is greater than 75 ng/mL, I recommend starting a dopamine agonist and titrating the dose until symptoms resolve. There are nonpharmacological methods to treat limb movements including daily exercise, stretching calf muscles before bed, avoiding excessive amounts of caffeine and alcohol, vitamin B supplementation, magnesium lotion massaged into legs before bed, and use of a weighted blanket. Data The data obtained during this sleep study is adequate for interpretation. Certification This sleep study has been reviewed by a board certified sleep medicine physician.
[2024-12-27 15:51] VITALS: BMI 23.8
== END 2024-12-01 08:04 | disposition home or self-care (01) ==
PROVIDERS: PCP Nurse Practitioner; Visit Provider Internal Medicine Critical Care Medicine
DX: G47.33 Obstructive sleep apnea (adult) (pediatric) (principal); G25.81 Restless legs syndrome; E61.1 Iron deficiency
CPT/HCPCS: 95810

== ENCOUNTER 2025-01-05 10:39 | Emergency (ER) | payer MEDICARE, SELFPAY ==
[2025-01-05 10:52] VITALS: BP 123/69; PULSE 66; RESP 16; TEMP 36.3; O2SAT 98
--- NOTE | 2025-01-05 10:59 | ED.GENADULT ---
HPI - General Adult General Chief complaint: Eye Problems Stated complaint: [facility] Time Seen by Provider: 01/05/25 11:00 Source: patient, RN notes reviewed and old records reviewed Mode of arrival: ambulatory Limitations: no limitations History of Present Illness HPI narrative: 74-year-old female presents to the [facility] with concerns for pink eye. States that she has had a upper respiratory infection since the weekend. Woke up today with the left eye crusted shut, watery. Denies any injury. Denies pain. No visual changes. Onset (ago): day(s) (2-3) Treatments prior to arrival: none Related Data Home Medications ?Medication ?Instructions ?Recorded ?Confirmed ?Last Taken ?Type cyclosporine 0.05 % eye drops in a 1 drp EACH EYE Q12H 09/14/22 11/25/24 10/16/23 History dropperette (Restasis) turmeric 400 mg capsule 400 mg PO DAILY 09/30/23 11/25/24 10/13/23 History vitamin B complex 1 cap PO DAILY 09/30/23 11/25/24 10/13/23 History multivitamin 1 tablet PO DAILY 10/15/24 11/25/24 Unknown History aspirin 81 mg tablet,delayed 81 mg PO DAILY 10/19/24 11/25/24 Unknown History release celecoxib 200 mg capsule (Celebrex) 200 mg PO .prn PRN Pain 10/19/24 11/25/24 Unknown History levocetirizine 5 mg tablet (Xyzal) 5 mg PO DAILY 11/25/24 11/25/24 Unknown History Allergies Allergy/AdvReac Type Severity Reaction Status Date / Time No Known Allergies Allergy Verified 01/05/25 11:13 Review of Systems Review of Systems: All systems reviewed & are unremarkable except as noted in HPI and below Constitutional: Constitutional: Reports no additional constitutional complaints Eyes: Eyes: Reports as per HPI ENT: Reports as per HPI Cardiovascular: Cardiovascular: Reports no additional cardiovascular complaints, Denies chest pain and Denies dyspnea Respiratory: Respiratory: Reports no additional respiratory complaints, Denies chest congestion, Denies cough and Denies dyspnea Musculoskeletal: Musculoskeletal: Reports no additional musculoskeletal complaints Integumentary/Breasts: Skin/Breast: Reports system reviewed and no additional complaints, except as docu [facility] Past Medical History Medical History Restless legs syndrome (RLS) Erythrocytosis Dietary iron deficiency without anemia Obstructive sleep apnea ROSSY (obstructive sleep apnea) CPAP [place] Vitamin D deficiency Osteoarthritis Presence of tooth-root and mandibular implants Bilateral cataracts Hyperlipidemia Hypothyroidism Surgical History Surgical History H/O excision of mass 07/07/20 Left posterior shoulder mass measuring 2x1 cm, Right lateral chest wall mass measuring 12x7 cm History of bladder suspension procedure Status post carpal tunnel release Family History Family History Sibling Hypertension Diabetes mellitus Father Bone cancer Mother Liver cancer Social History Social History Social History: caffeine-coffee 2-3 cups daily Smoking packs per day: 2 Smoking cigarettes per day: 40.0 Years smoked: 17 Smoking pack-years: 34.00 Smoking status: Former smoker Tobacco type: cigarettes Second hand tobacco smoke exposure: Yes Smoking end date: 05/20/83 Additional smoking assessment comments: QUIT 1984 Alcohol intake: former Substance use: never Substance use type: does not use Do You Feel Safe in your Home?: Yes Lack of Transportation: No Lack of Food: Never True Current Housing: I Have Housing Concerned About Future Housing: No Difficulty Paying Gas/Electric Bills: No Difficulty Paying for Meds: No Currently Unemployed: No Education: Master's Degree or Higher Difficulty w/ Childcare or Family Care: No Living arrangements: with family Occupation/Education: retired Spiritual care concerns: No Comments At the time of my signature, I reviewed and agree with the nursing past medical, surgical, social, and family history. There is no relevant family history pertinent to the patient complaint. Exam Const: General: cooperative, healthy appearing, comfortable, no acute distress, well developed, alert and well nourished Nutritional Appearance: well nourished Orientation/consciousness: patient oriented x3 Limitations: no limitations HENMT: Head: normal to inspection Ears: hearing grossly normal bilaterally, external ears normal, TM's normal bilaterally, EAC's normal, mastoids normal and no periauricular adenopathy Face and sinus: normal facial exam Mouth: Yes Normal oral and palatal mucosa present, Yes lip normal, Yes tongue normal and Yes moist mucous membranes Eyes: General: appearance normal, both eyes and all related structures Alignment and Position: alignment normal Eyelids: eyelids normal Conjunctivae: conjunctival abnormality left conjunctival injection localized Neck: Neck: normal visual inspection, full ROM, no lymphadenopathy and no meningeal signs Chest: Chest palpation & inspection: normal inspection of the chest Resp: Effort & Inspection: normal respiratory effort and able to speak in complete sentences Auscultation: clear to auscultation bilaterally, no crackles, no rales, no rhonchi and no wheezes Cardio: Rate: regular rate Skin: General skin exam: normal color and no rashes or lesions noted Neuro: General: patient oriented x3, gait normal, moves all extremities and no meningeal signs Cognition (Neuro): normal cognition Speech: normal speech Gait exam (Neuro): Normal gait present Extrem: General: normal to inspection, full ROM, capillary refill normal and normal gait Psych: Appearance: grossly normal and well kempt Mental Status: mental status grossly normal Speech and movement: Normal speech and movement present and Clear speech present Affect: normal affect Attitude: cooperative Course Course Level of Care: Express Care Visit Vital Signs Vital signs: Vital Signs Temperature 97.3 F L 01/05/25 10:52 Pulse Rate 66 01/05/25 10:52 Respiratory Rate 16 01/05/25 10:52 Blood Pressure 123/69 01/05/25 10:52 Pulse Oximetry 98 01/05/25 10:52 Temperature 97.3 F L 01/05/25 10:52 Pulse Rate 66 01/05/25 10:52 Respiratory Rate 16 01/05/25 10:52 Blood Pressure 123/69 01/05/25 10:52 Pulse Oximetry 98 01/05/25 10:52 Reviewed Medical Decision Making MDM Narrative Medical decision making narrative: Patient sitting comfortably in exam room. Nontoxic, vitals stable. Patient in no acute distress Patient presents with concerns for conjunctivitis, mild injection, increase redness to the left lower lid. Patient reports crusted this morning. Patient appropriate for outpatient treatment and follow-up Discharge instructions reviewed with patient, as well as provided in writing per nursing staff. The instructions also include specific and strict return/GO TO THE ER as well as f/u information. All questions have been answered, and the patient deny any further questions with discharge and discharge plan. Some parts of this dictation were generated by voice recognition software and may contain typographical and/or grammatical inaccuracies. Differential Diagnosis Differential Diagnosis: URI, conjunctivitis Medical Records Medical records reviewed: Yes I reviewed the external patient's medical records. Vital Signs Vital Signs: Vital Signs Temperature 97.3 F L 01/05/25 10:52 Pulse Rate 66 01/05/25 10:52 Respiratory Rate 16 01/05/25 10:52 Blood Pressure 123/69 01/05/25 10:52 Pulse Oximetry 98 01/05/25 10:52 Temperature 97.3 F L 01/05/25 10:52 Pulse Rate 66 01/05/25 10:52 Respiratory Rate 16 01/05/25 10:52 Blood Pressure 123/69 01/05/25 10:52 Pulse Oximetry 98 01/05/25 10:52 Reviewed Lab Data Lab results reviewed: Yes I reviewed the patient's lab results. Labs: Reviewed Critical Care Time Critical Care Time Critical Care Time: No Discharge Plan Discharge Clinical Impression: Acute conjunctivitis of left eye, Upper respiratory infection Patient Disposition: Home Condition: Stable Instructions: Antibiotic Form, Upper Respiratory Infection (ED), Conjunctivitis (ED) Additional Instructions: Apply a cool, damp compress to your affected eye. Be sure to use a clean cloth each time to avoid spreading the infection. Gently clean your eyes with wet cotton balls or pads to remove crusty buildup or irritating discharge. Stop wearing contact lenses until the condition clears up. Use eye drops as prescribed Maintain good hygiene and only touch your eyes with freshly washed hands. You should follow-up with an eye doctor within the next 72 hours [facility]: [place]- [phone] [place] [phone] [facility] [phone] [place]: [place]- [phone] or [phone] [facility] [phone] [facility] [phone] [facility] [phone] [facility]- [phone] Patient Language: Greek Prescriptions: New ofloxacin 0.3 % drops See Rx Instructions .ROUTE .COMPLEX Qty: 5 0RF Rx Instructions: Placed 1 drop in left eye every 2-4 h x 2 days, then 1-2 drps 4 times/day days 3-7; No Action cyclosporine [Restasis] 0.05 % dropperette 1 drp EACH EYE Q12H multivitamin Tablet 1 tablet PO DAILY celecoxib [Celebrex] 200 mg capsule 200 mg PO .prn PRN (Reason: Pain) aspirin 81 mg tablet,delayed release (DR/EC) 81 mg PO DAILY doxepin [Silenor] 3 mg tablet 3 mg PO QHS PRN (Reason: sleep) 30 Days Qty: 30 2RF Rx Instructions: Take at bedtime. levocetirizine [Xyzal] 5 mg tablet 5 mg PO DAILY (DME) CPAP machine See Rx Instructions .Route .MEDSUPPLY Qty: 1 0RF Rx Instructions: Resmed AirSense 11 AutoPAP 5-15 cm H2O, CPAP mask/filters/tubing and humidifier chamber valacyclovir 1 gram tablet 2,000 mg PO Q12H PRN (Reason: Cold sores) Qty: 4 3RF atorvastatin 10 mg tablet See Rx Instructions .ROUTE .COMPLEX Qty: 90 1RF Dose Instruction: TAKE 1 TABLET(10 MG) BY MOUTH DAILY Rx Instructions: TAKE 1 TABLET(10 MG) BY MOUTH DAILY levothyroxine 25 mcg tablet See Rx Instructions .ROUTE .COMPLEX Qty: 90 1RF Dose Instruction: TAKE 1 TABLET(25 MCG) BY MOUTH EVERY MORNING Rx Instructions: TAKE 1 TABLET(25 MCG) BY MOUTH EVERY MORNING ferrous sulfate 325 mg (65 mg iron) tablet 325 mg PO DAILY Qty: 90 3RF eszopiclone [Lunesta] 2 mg tablet 2 mg PO QHS Qty: 1 0RF Rx Instructions: To use on the night of the sleep study vitamin B complex Capsule 1 cap PO DAILY turmeric 400 mg Capsule 400 mg PO DAILY Follow-up/Referrals: Titus House DO [Primary Care Provider, Internal Medicine] - 2 Weeks Time of Disposition: 11:20
== END 2025-01-05 11:22 | disposition home or self-care (01) ==
PROVIDERS: Emergency Provider Nurse Practitioner; PCP Internal Medicine
DX: H10.32 Unspecified acute conjunctivitis, left eye (principal); J06.9 Acute upper respiratory infection, unspecified; E03.9 Hypothyroidism, unspecified; E78.5 Hyperlipidemia, unspecified; M19.90 Unspecified osteoarthritis, unspecified site; G47.33 Obstructive sleep apnea (adult) (pediatric); G25.81 Restless legs syndrome; E61.1 Iron deficiency; Z79.82 Long term (current) use of aspirin; Z87.891 Personal history of nicotine dependence
CPT/HCPCS: 99213; G0463

== ENCOUNTER 2025-01-14 08:21 | Outpatient (CLI) | payer MEDICARE, SELFPAY ==
--- OUTSIDE RECORDS SUMMARY | 2025-01-14 08:25 | XMS_ITS | Clinical Summary ---
[facility] Address [address] [place] [address] Care Team Providers Care Spray Machine Loader Name Role Phone Titus House DO Primary [...] Encounters Date Type Department Care Team Description 12/02/2024 External Device Data STL ABSTRACTION Provider, Abstract 12/01/2024 External Device Data [facility] ABSTRACTION Provider, Abstract 11/10/2024 External Device Data [facility] ABSTRACTION Provider, [...] Used Date Smoking Tobacco: Former Cigarettes 1 - 1983 Smokeless Tobacco: Never Tobacco Cessation:Counseling [...] 154.9 cm (5' 1) 03/26/2023 3:28 PM PASTRY BAKER Body Mass Index 25.47 03/26/2023 3:28 PM PASTRY BAKER Plan of Treatment Upcoming Encounters Date Type Department Care Team (Late st Contact Info) Description 03/09/2025 2:00 PM CDT Office Visit [facility] Oncology and Hematology - [place] [address] [place] [address] [facility] [address] [place] [address] Sekou Tenorio MD [address] [facility] [address] [place] [address] Health Maintenance Due Date Last [...] VACCINE Completed 05/15/2019, 01/21/2019 Insurance [employer] PPO MCR Care Teams Spray Machine Loader Relationship Specialty Start Date End Date Titus House DO [address] [facility] [address] [place] [address] PCP - General Internal Medicine 12/14/22
--- OUTSIDE RECORDS SUMMARY | 2025-01-14 08:25 | XMS_ITS | Clinical Summary ---
Author Organization [address] Address [address] [place] [id number] Care Team Providers Care Qa Tech Name Role Phone Tiuts Huose DO Primary Care Provider +1- [phone] Allergies No known active allergies Medications cholecalciferol [...] on file Legal Sex Female 11:34 PM CLINICAL BIOSTATISTICS DIRECTOR Gender Identity Female 10/13/2019 2:32 PM CDT [...] Plan of Treatment Not on file Insurance [facility] MEDIC[facility] ADVANT[facility] Care Teams Qa Tech Relationship Specialty Start Date End Date Titus House DO PCP - General Internal Medicine 11/16/19
--- OUTSIDE RECORDS SUMMARY | 2025-01-14 08:25 | XMS_ITS | Clinical Summary ---
Author Organization [facility] [employer] Address [address] [facility] [place] [address] Care Team Providers Care Lathe Operator Name Role Phone Unavailable Primary Care Provider Unavailabl e Source Comments [facility] [employer],non-owned Affiliates and Associated Physician Practices is amultiple site organization consisting of ambulatory clinics and hospital sitesin [place], [place], [place] and [place]. This disclosure is being madepursuant to the Care Everywhere program and may not contain all information available regarding this patient. Last updated 18.[facility] Allergies No known active allergies Medications * [...] on file Legal Sex Female 11:01 AM IT SUPPORT ANALYST Gender Identity Not on file Sexual Orientation Not on file Last Filed Vital Signs Vital Sign Reading Time Taken Comments Blood Pressure 90/52 06/05/2012 8:05 AM IT SUPPORT ANALYST Pulse 65 06/05/2012 8:05 AM IT SUPPORT ANALYST Temperature 36.8 C (98.3 F) 06/05/2012 8:05 AM IT SUPPORT ANALYST Respiratory Rate 18 06/05/2012 8:05 AM IT SUPPORT ANALYST Oxygen Saturation 95% 06/05/2012 8:05 AM IT SUPPORT ANALYST Inhaled Oxygen Concentration - - Weight 58.1 kg (128 lb) 06/04/2012 6:00 AM IT SUPPORT ANALYST Height 154.9 cm (5' 1) 06/04/2012 6:00 AM IT SUPPORT ANALYST Body Mass Index 24.19 06/04/2012 6:00 AM IT SUPPORT ANALYST Plan of Treatment Health Maintenance Due Date [...]
--- NOTE | 2025-02-08 11:50 | WPDSLEEPSTUD ---
Sleep Study Date of Study: 01/14/25 Ordering Provider: Peg Miner NP Interpreting Physician: Tejal Turcios MD Sleep Study Type: CPAP Titration Height: 1.57 m Weight: 58.967 kg Body Mass Index: 23.8 Neck Circumference (inches): 13.5 [place]: 3 Reason for Sleep Study Previously diagnosed with ROSSY in October 2022. Having difficulty tolerating CPAP. * 11/30/2024 PSG showing severe obstructive sleep apnea, AHI 50.2 with desaturation to 81%. She returns for a CPAP titration. Sleep History This history is taken from her 11/30/2024 sleep questionnaire. Dejah Augustine is a 74-year-old female with a history of obstructive sleep apnea from a home sleep test years ago who used APAP until it did not work for her any longer, initiallly was on APAP 5-15, later changed to 5-11 cm. The patient occasionally awakens from sleep short of breath. She occasionally awakens at night with heartburn, belching, or cough. She frequently snores, and it is frequently loud enough that others complain. She occasionally wakes up gasping for air throughout the night. She occasionally sweats excessively at night. She denies falling asleep during the day and while driving. She denies having trouble at school or work due to sleepiness. She denies sleep paralysis. She occasionally experiences vivid dreamlike scenes upon awakening or falling asleep. She occasionally feels afraid of going to sleep. She rarely has nightmares. She constantly remembers her dreams. She frequently has thoughts racing through her mind. She denies feeling sad, depressed, or anxious. She occasionally has muscular tension. She frequently notices parts of her body jerk. She occasionally kicks during the night. She occasionally has crawling and aching feelings in her legs and occasionally has leg pain during the night. She denies awakening in the morning with jaw pain. She is frequently bothered by pain during the day and frequently awakened by pain during the night. She frequently wakes up feeling stiff in the morning. She frequently wakes up with sore or aching muscles. She frequently wakes up with pain in the neck, spine, and other joints. She goes to bed at 10:30 p.m. every night. It takes her 30 minutes up to 2 hours to fall asleep. She wakes up 1 to 2 times throughout the night to urinate and she is able to fall back asleep within a few minutes. She wakes up between 8:30 to 9 a.m. on both weekdays and weekends. She typically gets 7.5 to 8.5 hours of sleep per night. She will stay in bed for 5 to 10 minutes after waking up in the morning. She currently lives with her . She denies consuming any caffeinated beverages within 2 hours of bedtime. She denies reading before falling asleep. She will watch television before falling asleep. She denies taking naps in the afternoon or the evening. She consumes 1-2 cups of a caffeinated beverage per day. She quit smoking cigarettes 40 years ago. She quit consuming alcohol in 2009. She has not used recreational drugs since the . [facility] Past Medical History Medical History Restless legs syndrome (RLS) Erythrocytosis Dietary iron deficiency without anemia Obstructive sleep apnea ROSSY (obstructive sleep apnea) CPAP [place] Vitamin D deficiency Osteoarthritis Presence of tooth-root and mandibular implants Bilateral cataracts Hyperlipidemia Hypothyroidism Surgical History Surgical History H/O excision of mass 07/07/20 Left posterior shoulder mass measuring 2x1 cm, Right lateral chest wall mass measuring 12x7 cm History of bladder suspension procedure Status post carpal tunnel release Family History Family History Sibling Hypertension Diabetes mellitus Father Bone cancer Mother Liver cancer Social History Social History Social History: caffeine-coffee 2-3 cups daily Smoking packs per day: 2 Smoking cigarettes per day: 40.0 Years smoked: 17 Smoking pack-years: 34.00 Smoking status: Former smoker Tobacco type: cigarettes Second hand tobacco smoke exposure: Yes Smoking end date: 05/20/83 Additional smoking assessment comments: QUIT 1983 Alcohol intake: former Substance use: never Substance use type: does not use Do You Feel Safe in your Home?: Yes Lack of Transportation: No Lack of Food: Never True Current Housing: I Have Housing Concerned About Future Housing: No Difficulty Paying Gas/Electric Bills: No Difficulty Paying for Meds: No Currently Unemployed: No Education: Master's Degree or Higher Difficulty w/ Childcare or Family Care: No Living arrangements: with family Occupation/Education: retired Spiritual care concerns: No Medications Home Medications ?Medication ?Instructions ?Recorded ?Confirmed ?Type cyclosporine 0.05 % eye drops in a 1 drp EACH EYE Q12H 09/14/22 11/25/24 History dropperette (Restasis) CPAP machine #1 ea 12/04/22 11/25/24 Rx turmeric 400 mg capsule 400 mg PO DAILY 09/30/23 11/25/24 History vitamin B complex 1 cap PO DAILY 09/30/23 11/25/24 History valacyclovir 1 gram tablet 2,000 mg (2 x 1 gram) PO Q12H PRN 01/23/24 11/25/24 Rx Cold sores #4 tabs atorvastatin 10 mg tablet See Rx Instructions .Route 09/16/24 11/25/24 Rx .COMPLEX #90 tabs levothyroxine 25 mcg tablet See Rx Instructions .Route 09/16/24 11/25/24 Rx .COMPLEX #90 tabs multivitamin 1 tablet PO DAILY 10/15/24 11/25/24 History aspirin 81 mg tablet,delayed 81 mg PO DAILY 10/19/24 11/25/24 History release doxepin 3 mg tablet (Silenor) 3 mg PO QHS PRN sleep 1 month #30 10/19/24 11/25/24 Rx tabs levocetirizine 5 mg tablet (Xyzal) 5 mg PO DAILY 11/25/24 11/25/24 History eszopiclone 2 mg tablet (Lunesta) 2 mg PO QHS #1 tablet 12/31/24 Rx ferrous sulfate 325 mg (65 mg 325 mg PO DAILY #90 tabs 12/31/24 Rx iron) tablet ofloxacin 0.3 % eye drops See Rx Instructions .Route 01/05/25 Rx .COMPLEX #5 mL celecoxib 200 mg capsule (Celebrex) 200 mg PO DAILY PRN Pain #90 caps 01/11/25 Rx Sleep Procedure A full CPAP polysomnogram using the Mobitto multi-channel system recorded the standard physiologic parameters including EEG, EOG, submentalis EMG, anterior tibialis EMG, EKG, body position, nasal and oral airflow using nasal pressure sensor and thermistor. Respiratory parameters of chest and abdominal movements were recorded with Respiratory Inductance Plethysmography belts. Oxygen saturation was recorded by pulse oximetry. Video monitoring was also performed. Sleep stages, periodic limb movements, and EEG arousals were scored in 30 second epochs according to the criteria of the AASM Scoring Manual. The Apnea-Hypopnea Index was calculated using CMS guidelines for definition of hypopnea while scoring respiratory events. The patient self-administered Lunesta 2 mg at the beginning of the study The patient was started on CPAP using her own medium ResMed N20 nasal mask and heated humidity, initial pressure was CPAP 5 cm, titrated to 9 cm. At CPAP 9 cm the patient spent 108.5 minutes in bed, 22 minute awake, 86.5 minutes in non-REM, no time in REM. Sleep efficiency was 79.7% with residual apnea-hypopnea index of 0 and a minimum saturation of 93%. She had REM at a CPAP pressure of 8 which is also a good pressure for her. She had numerous periodic limb movements throughout the night which caused arousals. Sleep Architecture The total recording time was 475.3 minutes. The total sleep time was 426.5 minutes. Sleep latency was 1.9 minutes. REM latency was 129.5 minutes. Sleep efficiency was 89.7%. The patient had 31 awakenings for an awakening index of 4.4. Wake after Sleep Onset time was 46.5 minutes. The patient spent 26.0 minutes, 6.1% of total sleep time in Stage N1. The patient spent 303.5 minutes, 71.2% in Stage N2. The patient spent 51.0 minutes, 12.0% in Stage N3. The patient spent 46.0 minutes, 10.8% in Stage REM. Respiratory Analysis The patient had 5 hypopneas, 2 obstructive apneas, no mixed apneas, and 2 central apneas for an overall Apnea Hypopnea Index of 1.3 events per hour. The REM Apnea Hypopnea Index was 0. The NREM Apnea Hypopnea Index was 1.4. The patient had a Central Apnea Hypopnea Index of 0.3. There were no Respiratory Effort Related Arousals. The Respiratory Disturbance Index is 2.4 events per hour. There was no evidence of Parker-Ramos Respirations. Arousals There were 410 total arousals for an arousal index of 57.7. There were 42 spontaneous arousals for an index of 5.9. There were 13 arousals due to respiratory events for an index of 1.8. There were 351 arousals due to periodic limb movements for an index of 49.4. There were 5 arousals due to isolated limb movements for an index of 0.7. Periodic Limb Movements The patient had 6 isolated limb movements with an index of 0.8. The patient had 588 periodic limb movements with index of 82.7. Patient had a total of 594 limb movements with a total limb movement index of 83.6. Oximetry Data The patient had an average oxygen saturation of 92.8% in sleep with a minimum oxygen saturation of 88% and a maximum oxygen saturation of 98%. The patient had 8 oxygen desaturations that were 4% or greater resulting in an Oxygen Desaturation Index of 1.1. The patient spent 0.1 minutes, no total sleep time with an oxygen saturation below 88%. Snoring Profile Snoring was resolved during the titration. Cardiac Profile The EKG showed normal sinus rhythm. The patient had an average pulse rate of 61.3 bpm with a minimum pulse rate of 49.0 bpm and a maximum pulse rate of 84.0 bpm. EEG Profile No signs of seizure activity seen. Assessment and Plan Assessment and Plan (1) ROSSY (obstructive sleep apnea): Code(s): G47.33 - Obstructive sleep apnea (adult) (pediatric) Status: Acute Assessment and Plan: This full night CPAP titration on 01/14/2025 shows a successful titration using a medium ResMed AirFit N20 nasal mask and heated humidity. At CPAP 9 cm, the patient spent 108.5 minutes in bed, 22 minute awake, 86.5 minutes in non-REM, no time in REM. Sleep efficiency was 79.7% with residual apnea-hypopnea index of 0 and a minimum saturation of 93%. She had REM at a CPAP pressure of 8 which is also a good pressure for her. Most of the night was spent in the supine position, including REM at CPAP 8 She had numerous periodic limb movements throughout the night which cause arousals. The patient should be prescribed this ResMed equipment as well as tubing, filters and reservoir. This should be used with all episodes of sleep. Compliance should be reviewed within 31-90 days of starting therapy for usage greater than 4 hours per night greater than 70% of the nights. The patient should be asked about symptoms such as excessive daytime sleepiness, quality of sleep, decreased nocturia, increased mental functioning such as memory, mood, and concentration. She has been on APAP at pressures 5 -15, later 5-11 cm with difficulty tolerating these pressures and an elevation in the AHI. She also has had problems with insomnia. Combination of new pressure of CPAP 9 and a dressing ferritin level and other aspects of her PLM disorder may improve sleep quality. (2) PLMD (periodic limb movement disorder): Code(s): G47.61 - Periodic limb movement disorder Status: Acute Assessment and Plan: The patient had 351 periodic limb movements causing arousal for an index of 49.4. She has complaints of come leg movements at nights and some sensation of irritable feelings n her legs at night. She has a series of ferritin levels which have all been low. She may benefit from a combination of iron replacement to achieve a ferritin level of 75 ng/mL or greater, and nonpharmacologic methods to treat limb movements including daily exercise, stretching calf muscles before bed, avoiding excessive amounts of caffeine and alcohol, vitamin B supplementation, magnesium lotion massaged into legs before bed, and use of a weighted blanket. Data The data obtained during this sleep study is adequate for interpretation. Certification This sleep study has been reviewed by a board certified sleep medicine physician.
[2025-02-10 12:18] VITALS: BMI 23.8
== END 2025-01-15 06:56 | disposition home or self-care (01) ==
LOC: ANHCSM 08:22
PROVIDERS: PCP Internal Medicine; Visit Provider Nurse Practitioner
DX: G47.33 Obstructive sleep apnea (adult) (pediatric) (principal); G47.61 Periodic limb movement disorder; E55.9 Vitamin D deficiency, unspecified; E78.5 Hyperlipidemia, unspecified; E03.9 Hypothyroidism, unspecified; Z87.891 Personal history of nicotine dependence
CPT/HCPCS: 95811

== ENCOUNTER 2025-01-26 11:26 | Outpatient (CLI) | payer MEDICARE, SELFPAY ==
--- OUTSIDE RECORDS SUMMARY | 2025-01-26 13:18 | XMS_ITS | Clinical Summary ---
Author Organization [address] Address [address] [place] [address] Care Team Providers Care Milk Delivery Driver Name Role Phone Titus House DO Primary Care Provider +1- [phone] Allergies No known active allergies Medications cholecalciferol [...] on file Legal Sex Female 11:34 PM POKER SUPERVISOR Gender Identity Female 10/13/2019 2:32 PM CDT [...] Plan of Treatment Not on file Insurance [facility] MEDICARE ADVANTAGE Care Teams Milk Delivery Driver Relationship Specialty Start Date End Date Titus House DO PCP - General Internal Medicine 11/16/19
--- OUTSIDE RECORDS SUMMARY | 2025-01-26 13:18 | XMS_ITS | Clinical Summary ---
[facility] Organization [facility] Address [address] [place] [address] Care Team Providers Care Accountant Machine Processing Name Role Phone Titus House DO Primary [...] 154.9 cm (5' 1) 03/26/2023 3:28 PM INDUSTRIAL CONVEYOR BELT REPAIRER Body Mass Index 25.47 03/26/2023 3:28 PM INDUSTRIAL CONVEYOR BELT REPAIRER Plan of Treatment Upcoming Encounters Date Type Department Care Team (Late st Contact Info) Description 03/09/2025 2:00 PM CDT Office Visit [facility] Oncology and Hematology - [place] [address] [place] [address] [facility] [address] [place] [address] Sekou Tenorio MD [address] [facility] [address] [place] [address] Health Maintenance Due Date Last Done Comments COLORECTAL SCREENING 1995 Colorectal Cancer Screening 1995 FIT-DNA Q 3 years 1995 FIT/FOBT Q 1 year 1995 Flex Sig/CT Colonography Q 5 years 1995 BREAST CANCER SCREENING 05/21/2015 05/21/19 15, 05/21/2014, 05/07/2013 DTAP/TDAP/TD VACCINES (2 - T d or Tdap) 04/08/2023 04/08/2013 Medicare Advantage (ID) Preventative Visit/Annual Wellness Visit 05/20/2024 08/23/2021, 11/17/2019 OSTEOPOROSIS SCREENING 11/03/2024 11/04/2019, 2019 INFLUENZA VACCINE (#1) 2024 9, 02/10/2018, 03/05/2017, Additional history exists RSV VACCINE (60+ or ) (1 - 1-dose 75+ series) 2025 PNEUMOCOCCAL VACCINE 50+ YEARS Completed 04/03/2018 , 03/05/2017 ZOSTER VACCINE Completed 05/15/2019, 01/21/2019 Insurance [employer] PPO MCR Care Teams Accountant Machine Processing Relationship Specialty Start Date End Date Titus House DO [address] [facility] [address] [place] [address] PCP - General Internal Medicine 12/14/22
--- OUTSIDE RECORDS SUMMARY | 2025-01-26 13:18 | XMS_ITS | Clinical Summary ---
Author Organization [facility] [employer] Address [address] [facility] [place] [address] Care Team Providers Care Glove Maker Name Role Phone Unavailable Primary Care Provider Unavailabl e Source Comments [facility] [employer],non-owned Affiliates and Associated Physician Practices is amultiple site organization consisting of ambulatory clinics and hospital sitesin [place], [place], [place] and [place]. This disclosure is being madepursuant to the Care Everywhere program and may not contain all information available regarding this patient. Last updated 18.[facility] [employer] Allergies No known active allergies Medications * [...] on file Legal Sex Female 11:01 AM DOCUMENT CONTROLLER Gender Identity Not on file Sexual Orientation Not on file Last Filed Vital Signs Vital Sign Reading Time Taken Comments Blood Pressure 90/52 06/05/2012 8:05 AM DOCUMENT CONTROLLER Pulse 65 06/05/2012 8:05 AM DOCUMENT CONTROLLER Temperature 36.8 C (98.3 F) 06/05/2012 8:05 AM DOCUMENT CONTROLLER Respiratory Rate 18 06/05/2012 8:05 AM DOCUMENT CONTROLLER Oxygen Saturation 95% 06/05/2012 8:05 AM DOCUMENT CONTROLLER Inhaled Oxygen Concentration - - Weight 58.1 kg (128 lb) 06/04/2012 6:00 AM DOCUMENT CONTROLLER Height 154.9 cm (5' 1) 06/04/2012 6:00 AM DOCUMENT CONTROLLER Body Mass Index 24.19 06/04/2012 6:00 AM DOCUMENT CONTROLLER Plan of Treatment Health Maintenance Due Date [...] 2000 ZOSTER VACCINE (1 of 2) 2000 DEPRESSION SCREENING 05/20/2024 COVID-19 VACCINE (1 - 2023-2 5 season) 2025 INFLUENZA VACCINE (#1) 2025 , 02/25/2008 Respiratory [...]
[2025-01-26 13:27] LABS: Cholesterol 136 mg/dL (0-200); HDL Direct 56 mg/dL; Triglycerides 79 mg/dL (<150)
[2025-01-26 14:06] LABS: Ferritin 42.70 ng/mL (11.1-264)
[2025-01-26 14:09] LABS: Thyroid Stimulating Hormone 1.790 uIU/mL (0.465-4.680)
== END 2025-01-26 11:27 | disposition home or self-care (01) ==
LOC: ANHGOSHLAB 11:29
PROVIDERS: Internal Medicine Critical Care Medicine; PCP Internal Medicine; Visit Provider Nurse Practitioner
DX: E78.5 Hyperlipidemia, unspecified (principal); E03.9 Hypothyroidism, unspecified; E55.9 Vitamin D deficiency, unspecified; D64.9 Anemia, unspecified; G47.61 Periodic limb movement disorder
CPT/HCPCS: 36415; 80061; 82306; 82728; 84443

== ENCOUNTER 2025-02-16 12:30 | Outpatient (CLI) | payer MEDICARE, SELFPAY ==
--- NOTE | ~2025-02-16 | XR_ITS ---
EXAMINATION: [id number], 02/16/2025 12:35 CDT HISTORY: M25.519 - Pain in unspecified shoulder COMPARISON: No comparisons available. Findings: No acute fracture or malalignment. No significant degenerative changes. Soft tissues unremarkable. Impression: No acute fracture or malalignment. Reviewed, dictated and finalized at location P. Impression: No acute fracture or malalignment.
--- NOTE | ~2025-02-16 | XR_ITS ---
EXAMINATION: XR shoulder RT min 2V, 02/16/2025 12:35 CDT HISTORY: M25.519 - Pain in unspecified shoulder COMPARISON: No comparisons available. Findings: No acute fracture or malalignment. Moderate degenerative changes Soft tissues unremarkable. Impression: No acute fracture or malalignment. Reviewed, dictated and finalized at location P. Impression: No acute fracture or malalignment.
--- NOTE | ~2025-02-16 | DEXA_ITS ---
Bone Density Report Name: MICAH SHI Age: 74 Sex: Female Ethnicity: White Date of : 1950 Indication: osteopenia; Referring Provider: Peg Miner Study: Bone densitometry was performed. Exam Date: February 16, 2025 Accession number: [id number] Bone Density: Region BMD T-score Z-score Classification AP Spine(L1-L4) 0.893 -1.4 1.0 Osteopenia Femoral Neck (Left) 0.731 -1.1 1.0 Osteopenia Total Hip (Left) 0.819 -1.0 0.8 Normal Femoral Neck (Right) 0.693 -1.4 0.7 Osteopenia Total Hip (Right) 0.797 -1.2 0.6 Osteopenia Total Hip Mean 0.808 -1.1 0.7 Osteopenia World Health Organization criteria for BMD impression classify patients as: Normal (T-score at or above -1.0), Osteopenia (T-score between -1.0 and -2.5), or Osteoporosis (T-score at or below -2.5). 10-year Fracture Risk(1): Major Osteoporotic Fracture 11% Hip Fracture 2.1% Reported Risk Factors: [place] (), Neck BMD=0.693, BMI=24.6 (1) FRAX(R) Version 3.08. Fracture probability calculated for an untreated patient. Fracture probability may be lower if the patient has received treatment. Previous Exams: -- Region Exam Age BMD T-score BMD Change BMD Change Date g/cm2 vs Baseline vs Previous -- AP Spine (L1-L4) 02/16/2025 74 0.893 -1.4 -9.6%* -1.0% 01/29/2022 71 0.902 -1.3 -8.7%* -8.7%* 10/05/2015 65 0.988 -0.5 Total Hip(Left) 02/16/2025 74 0.819 -1.0 -10.5%* -11.6%* 01/29/2022 71 0.927 -0.1 1.3% 1.3% 10/05/2015 65 0.916 -0.2 Total Hip(Right) 02/16/2025 74 0.797 -1.2 -9.3%* -11.1%* 01/29/2022 71 0.896 -0.4 2.1% 2.1% 10/05/2015 65 0.878 -0.5 -- *Denotes significance at 95% confidence level, LSC for AP Spine = 0.022 g/cm2, LSC for Total Hip = 0.027 g/cm2 Clinical Information Provided by Patient: Has used the following medications: HRT (i.e. estrogen/hormone therapy), Vitamin D, Calcium Patient maximum height was 62 Menopause Age: 53 Drinks caffeinated beverages Onset of menses at age 12 Number of children 1 Impression: The patient has low bone mass, based on the Total Spine T-score. The patient has an estimated ten-year risk of hip fracture of 2.1% and an estimated ten-year risk of major fracture of 11%, based on the WHO FRAX algorithm. The BMD for the Total Hip(Left) decreased, changing by -11.6% since the last DXA exam. The BMD for the Total Hip(Right) decreased, changing by -11.1% since the last DXA exam. Discussion: BONE DENSITY IS LOW AT ONE OR MORE SKELETAL SITES. This patient's lowest T-score is low at one or more skeletal sites. It meets the World Health Organization's (WHO) criteria for ?low bone mass? (T-score between -1.0 and -2.5). The patient's 10-year risk of fracture as calculated by FRAX is less than the threshold where pharmacological therapy is recommended by the National Osteoporosis Foundation (NOF). However, all treatment decisions require clinical judgment and consideration of individual patient factors, including patient preferences, comorbidities, previous drug use, risk factors not captured in the FRAX model (e.g., frailty, falls, vitamin D deficiency, increased bone turnover, interval significant decline in bone density) and possible under or overestimation of fracture risk by FRAX. The patient should follow a healthful lifestyle (good nutrition with adequate calcium and vitamin D, and appropriate weight-bearing exercise). Follow-Up: Consider repeating this study in 2 years to reassess this patient's status, or sooner if there is some new clinical indication. Reported by: ELIZABETH on 02/16/2025 1:07:00 PM. Reviewed, dictated and finalized at location A.
== END 2025-02-16 12:31 | disposition home or self-care (01) ==
LOC: MICIMG 12:32
PROVIDERS: PCP Internal Medicine; Visit Provider Nurse Practitioner
DX: M85.88 Other specified disorders of bone density and structure, other site (principal); M25.562 Pain in left knee; M25.511 Pain in right shoulder; Z78.0 Asymptomatic menopausal state
CPT/HCPCS: 73030; 73560; 77080

== ENCOUNTER 2025-03-09 13:33 | Outpatient (CLI) | payer MEDICARE, SELFPAY ==
[2025-03-09 14:01] LABS: Hematocrit 46.6 % (37.0-47.0); Hemoglobin 15.2 g/dL (12.0-15.0); Mean Corpuscular HGB Conc 32.6 g/dl (32-36); Mean Corpuscular Hemoglobin 29.5 pg (26-34); Mean Corpuscular Volume 90.3 fl (80-100); Platelet Count Result 293 k/mm3 (150-375); Red Blood Count 5.16 M/mm3 (4.2-5.4); White Blood Count 10.0 K/mm3 (4.5-10.0)
[2025-03-09 14:06] LABS: Blood Urea Nitrogen 11 mg/dL (8-26); Carbon Dioxide 27 mmol/L (22-30); Chloride 105 mmol/L (98-109); Estimated Glomerular Filt Rate > 60; Glucose 91 mg/dL (70-105); Ionized Calcium (POC) 1.21 mmol/L (1.11-1.31); Potassium 4.2 mmol/L (3.5-4.9); Sodium 142 mmol/L (138-146)
[2025-03-09 16:29] LABS: Alanine Aminotransferase 30 U/L (6-35); Albumin Level 4.4 g/dL (3.5-5.1); Alkaline Phosphatase 85 U/L (38-126); Anion Gap 6 mmol/L (4-12); Aspartate Amino Transferase 75 U/L (14-36); Bilirubin,Total 0.4 mg/dL (0.2-1.3); Blood Urea Nitrogen 12 mg/dL (7-17); Calcium 9.4 mg/dL (8.4-10.2); Carbon Dioxide 27 mmol/L (22-30); Chloride 105 mmol/L (98-107); Estimated Glomerular Filt Rate > 60; Glucose 92 mg/dL (65-110); Potassium 4.2 mmol/L (3.4-5.0); Sodium 138 mmol/L (137-145); Total Protein 6.9 g/dL (6.3-8.2)
== END 2025-03-09 13:34 | disposition home or self-care (01) ==
LOC: ANHLAB 13:34
PROVIDERS: PCP Internal Medicine; Visit Provider Internal Medicine Hematology & Oncology
DX: D50.9 Iron deficiency anemia, unspecified (principal)
CPT/HCPCS: 36415; 80047; 80053; 85027

== ENCOUNTER 2025-04-28 14:29 | Emergency (ER) | payer MEDICARE, SELFPAY ==
--- NOTE | ~2025-04-28 | XR_ITS ---
EXAM/PROCEDURE: XR abdomen/kub 1V HISTORY: hematuria r/o stone, blood in urine x 2 days, back pain COMPARISON: None available. TECHNIQUE: KUB FINDINGS: Scattered loops of gas dilated large bowel. Haustral folds are borderline thickened. No large amount of free air. Bones and visualized lower chest unremarkable. IMPRESSION: Borderline thickened appearance of the haustral folds which could be associated with colitis. Otherwise nonspecific bowel gas pattern. Reviewed, dictated and finalized at location A. [facility]
--- NOTE | 2025-04-28 14:30 | ED.FEMALEGU ---
HPI - Female Genitourinary General Chief complaint: Urogenital-Female Stated complaint: UTI SYMPTOMS Time Seen by Provider: 04/28/25 14:30 Source: patient Mode of arrival: ambulatory Limitations: no limitations History of Present Illness HPI Narrative: Dejah is a 75 year old female patient presenting to the clinic today with c/o possible UTI symptoms. She reports over the 2-3 days she has noticed some blood in her urine, dark urine, and odorous urine. Also reports some low back pain. No history of kidney stones. No burning, frequency, or urgency. Related Data Home Medications ?Medication ?Instructions ?Recorded ?Confirmed ?Last Taken ?Type cyclosporine 0.05 % eye drops in a 1 drp EACH EYE Q12H 09/14/22 03/16/25 10/16/23 History dropperette (Restasis) turmeric 400 mg capsule 400 mg PO DAILY 09/30/23 03/16/25 10/13/23 History vitamin B complex 1 cap PO DAILY 09/30/23 03/16/25 10/13/23 History multivitamin 1 tablet PO DAILY 10/15/24 03/16/25 Unknown History aspirin 81 mg tablet,delayed 81 mg PO DAILY 10/19/24 03/16/25 Unknown History release levocetirizine 5 mg tablet (Xyzal) 5 mg PO DAILY 11/25/24 03/16/25 Unknown History Allergies Allergy/AdvReac Type Severity Reaction Status Date / Time No Known Allergies Allergy Verified 04/28/25 14:30 Review of Systems Review of Systems: Pertinent positives per HPI. Patient denies any fever, chills, rash, headache, visual changes, dizziness, cough, runny nose, sore throat, shortness of breath, chest pain, palpitations, nausea, vomiting, diarrhea, constipation, abdominal pain, or any urinary issues. [facility] Past Medical History Medical History Restless legs syndrome (RLS) Erythrocytosis Dietary iron deficiency without anemia Obstructive sleep apnea ROSSY (obstructive sleep apnea) CPAP [place] Vitamin D deficiency Osteoarthritis Presence of tooth-root and mandibular implants Bilateral cataracts Hyperlipidemia Hypothyroidism Surgical History Surgical History H/O excision of mass 07/07/20 Left posterior shoulder mass measuring 2x1 cm, Right lateral chest wall mass measuring 12x7 cm History of bladder suspension procedure Status post carpal tunnel release Family History Family History Sibling Hypertension Diabetes mellitus Father Bone cancer Mother Liver cancer Social History Social History Social History: caffeine-coffee 2-3 cups daily Smoking packs per day: 2 Smoking cigarettes per day: 40.0 Years smoked: 17 Smoking pack-years: 34.00 Smoking status: Former smoker Tobacco type: cigarettes Second hand tobacco smoke exposure: Yes Smoking end date: 05/20/83 Additional smoking assessment comments: QUIT 1984 Alcohol intake: former Substance use: never Substance use type: does not use Lack of Transportation: No Lack of Food: Never True Current Housing: I Have Housing Concerned About Future Housing: No Difficulty Paying Gas/Electric Bills: No Difficulty Paying for Meds: No Currently Unemployed: No Education: Master's Degree or Higher Difficulty w/ Childcare or Family Care: No Living arrangements: with family Occupation/Education: retired Spiritual care concerns: No Comments At the time of my signature, I reviewed and agree with the nursing past medical, surgical, social, and family history. There is no relevant family history pertinent to the patient complaint. Exam Narrative: General: Well-developed, well nourished, in no apparent distress. Head: Normocephalic, atraumatic. Cardio: Regular rate and rhythm, s1 and s2 normal, no murmur appreciated. Resp: Clear to auscultation bilaterally, no rhonchi, rales, wheezing or rubs. Abdomen: Soft, pliable, bowel sounds present in all quadrants, non-tender to palpation, no organomegly, no CVAT tenderness. Course Course Level of Care: Express Care Visit Vital Signs Vital signs: Vital Signs Temperature 37.2 C 04/28/25 14:38 Pulse Rate 82 04/28/25 14:38 Respiratory Rate 16 04/28/25 14:38 Blood Pressure 124/68 04/28/25 14:38 Pulse Oximetry 99 04/28/25 14:38 Temperature 37.2 C 04/28/25 14:38 Pulse Rate 82 04/28/25 14:38 Respiratory Rate 16 04/28/25 14:38 Blood Pressure 124/68 04/28/25 14:38 Pulse Oximetry 99 04/28/25 14:38 MDM MDM Narrative Medical decision making narrative: At the time of visit patient is resting comfortably on the exam table. Patient appears to be nontoxic. C/o possible UTI symptoms. She reports over the 2-3 days she has noticed some blood in her urine, dark urine, and odorous urine. Also reports some low back pain. No history of kidney stones. No burning, frequency, or urgency. On exam patient has soft, pliable abdomen, nondistended, nontender to palpation, no organomegaly, no CVAT tenderness, is reporting occasional pain to the bilateral lumbar region, Urinalysis dip ordered X-ray KUB was ordered to rule out kidney/ureteral stones. Labs: Urinalysis shows trace of blood without sign of infection. Diagnostics: KUB x-ray was performed to rule out kidney stones. No stones were seen but has probable colitis. Plan: I suspect patient has hematuria with malodorous urine. X-ray shows probable colitis however patient is not having any nausea, vomiting, diarrhea, or abdominal pain at this time. Offer to place patient on antibiotics to cover UTI/colitis treatment (Augmentin) but she declined at this time. We will send urine for culture and if this comes back positive we will contact the patient place her on antibiotics at that time. Supportive measures were discussed with the patient and they voiced understanding discharge instructions and agrees to treatment plan. Return precautions reviewed Differential Diagnosis Differential Diagnosis: Differential diagnostic considerations for female urogenital issues include urinary tract infection, bacterial vaginosis, cervicitis, ovarian cyst, vaginitis, STI exposure, ovarian torsion, ectopic , cyst of Bartholin?s gland, cystitis, dysmenorrhea. Lab Data Labs: Lab Results 04/28/25 Range/Units 14:44 POC Urine Color Yellow POC Urine Clarity Clear POC Urine pH 5.5 POC Ur Specif [place] 1.015 POC Urine Protein Negative (Negative) POC Ur Glucose (UA) Negative (Negative) POC Urine Ketones Negative (Negative) POC Urine Blood Trace (Negative) POC Urine Nitrite Negative (Negative) POC Urine Bilirubin Negative (Negative) POC Urine Urobilinogen 0.2 POC U Leukocyte Esteras Negative (Negative) Imaging Data Radiologist's impression: ITS Impressions Abdomen X-Ray 04/28/25 15:04 IMPRESSION: Borderline thickened appearance of the haustral folds which could be associated with colitis. Otherwise nonspecific bowel gas pattern. Discharge Plan Discharge Clinical Impression: Malodorous urine Hematuria Qualifiers: Hematuria type: unspecified type Qualified Code(s): R31.9 - Hematuria, unspecified Patient Disposition: Home Condition: Stable Instructions: Antibiotic Form, Hematuria (ED) Additional Instructions: X-ray shows possible colitis as you have some bowel wall thickening Urinalysis shows a trace of blood. No obvious sign of leukocytes or nitrates. We will send urine for culture Increase fluids and stay well hydrated Increase fiber in your diet We will contact you in regards to the urine culture if it is positive and if we need to send in antibiotics for treatment May take Tylenol/Motrin as needed for pain as per bottle directions Follow-up with your PCP in 5-7 days if symptoms persist or go the emergency room if symptoms worsen-you develop nausea vomiting, fever that is not controlled by Tylenol Motrin, abdominal pain, worsening of back pain, chest pain, or shortness of breath. Patient Language: Slovak Prescriptions: No Action cyclosporine [Restasis] 0.05 % dropperette 1 drp EACH EYE Q12H multivitamin Tablet 1 tablet PO DAILY aspirin 81 mg tablet,delayed release (DR/EC) 81 mg PO DAILY levocetirizine [Xyzal] 5 mg tablet 5 mg PO DAILY (DME) CPAP machine See Rx Instructions .Route .MEDSUPPLY Qty: 1 0RF Rx Instructions: Resmed AirSense 11 AutoPAP 5-15 cm H2O, CPAP mask/filters/tubing and humidifier chamber valacyclovir 1 gram tablet 2,000 mg PO Q12H PRN (Reason: Cold sores) Qty: 4 3RF celecoxib [Celebrex] 200 mg capsule 200 mg PO DAILY PRN (Reason: Pain) Qty: 90 1RF atorvastatin 10 mg tablet See Rx Instructions .ROUTE .COMPLEX Qty: 90 1RF Dose Instruction: TAKE 1 TABLET(10 MG) BY MOUTH DAILY Rx Instructions: TAKE 1 TABLET(10 MG) BY MOUTH DAILY levothyroxine 25 mcg tablet See Rx Instructions .ROUTE .COMPLEX Qty: 90 1RF Dose Instruction: TAKE 1 TABLET(25 MCG) BY MOUTH EVERY MORNING Rx Instructions: TAKE 1 TABLET(25 MCG) BY MOUTH EVERY MORNING ropinirole 0.25 mg tablet See Rx Instructions .ROUTE .COMPLEX Qty: 207 0RF Dose Instruction: TAKE 1 TABLET BY MOUTH THREE TIMES DAILY FOR 1 MONTH. TAKE ONE 2 HOURS BEFORE BEDTIME FOR 1 WEEK, THEN 2 FOR 1 WEEK, THEN 3 THERE AFTER Rx Instructions: TAKE 1 TABLET BY MOUTH THREE TIMES DAILY FOR 1 MONTH. TAKE ONE 2 HOURS BEFORE BEDTIME FOR 1 WEEK, THEN 2 FOR 1 WEEK, THEN 3 THERE AFTER doxepin [Silenor] 3 mg tablet 3 mg PO QHS PRN (Reason: sleep) 30 Days Qty: 30 2RF Rx Instructions: Take at bedtime. ropinirole 0.5 mg tablet 0.75 mg PO QHS 30 Days Qty: 45 5RF Rx Instructions: Take 0.75 mg w hours before bedtime. vitamin B complex Capsule 1 cap PO DAILY turmeric 400 mg Capsule 400 mg PO DAILY Follow-up/Referrals: Peg Miner APRN [Primary Care Provider, Internal Medicine] Time of Disposition: 15:14 Quality NIHSS Nursing Documentation ED NIHSS nursing documentation: reviewed/agree
[2025-04-28 14:38] VITALS: BP 124/68; PULSE 82; RESP 16; TEMP 37.2; O2SAT 99
[2025-04-28 14:45] LABS: EDUAAPPEAR Clear; EDUABILI Negative (Negative); EDUABLOOD Trace (Negative); EDUACOLOR1 Yellow; EDUAGLUCOSE Negative (Negative); EDUAKETONE Negative (Negative); EDUALEUKO Negative (Negative); EDUANITRATE Negative (Negative); EDUAPH 5.5; EDUAPROTEIN Negative (Negative); EDUASPGRAVITY 1.015; EDUAUROBILI 0.2
== END 2025-04-28 15:17 | disposition home or self-care (01) ==
PROVIDERS: Emergency Provider Nurse Practitioner Family; PCP Nurse Practitioner
DX: R82.998 Other abnormal findings in urine (principal); R31.9 Hematuria, unspecified; Z87.891 Personal history of nicotine dependence; E03.9 Hypothyroidism, unspecified; E78.5 Hyperlipidemia, unspecified; M19.90 Unspecified osteoarthritis, unspecified site; G47.33 Obstructive sleep apnea (adult) (pediatric); G25.81 Restless legs syndrome; Z79.82 Long term (current) use of aspirin
CPT/HCPCS: 74018; 81003; 87086; 99213; G0463